=== PATIENT | female | born 1990 ===

== ENCOUNTER 2021-11-11 07:56 | Emergency (ER) | payer MEDICAID, OTHER, SELFPAY ==
--- NOTE | ~2021-11-11 | XR_ITS ---
EXAMINATION: XR CHEST CLINICAL INFORMATION: Chest pain COMPARISON: None TECHNIQUE: Frontal view of the chest was obtained. FINDINGS: No significant abnormality is noted involving the heart, lungs, mediastinum, bony thorax or soft tissues. XR/XR chest 1V IMPRESSION: Unremarkable examination.
[2021-11-11 08:11] VITALS: BP 125/67; PULSE 113; RESP 18; TEMP 36.6; O2SAT 100; BMI 25.7
--- NOTE | 2021-11-11 08:11 | ECG_ITS ---
Test Reason : CP Blood Pressure : / mmHG Vent. Rate : 097 BPM Atrial Rate : 097 BPM P-R Int : 130 ms QRS Dur : 096 ms QT Int : 348 ms P-R-T Axes : 068 077 -06 degrees QTc Int : 441 ms Normal sinus rhythm T wave abnormality, consider inferior ischemia Nonspecific ST abnormality Abnormal ECG No previous ECGs available Referred By: Generic ED Physician Electronically Signed By:HARPER EDMOND MD
[2021-11-11 08:57] LABS: MANUAL DIFF FLAG NO
[2021-11-11 08:59] LABS: Basophils Percent Auto 0.5 % (0-2); Eosinophils Absolute Auto 0.1 X10*3/uL (0.0-0.4); Eosinophils Percent Auto 2.3 % (0-4); Hematocrit 37.3 % (37.0-47.0); Hemoglobin 12.2 g/dl (12.0-16.0); Lymphocytes Absolute Auto 1.8 X10*3/uL (1.2-4.9); Lymphocytes Percent Auto 30.7 % (20-40); Mean Corpuscular HGB Conc 32.7 g/dl (31.0-35.0); Mean Corpuscular Hemoglobin 28.7 pg (27.0-33.0); Mean Corpuscular Volume 87.8 fL (80.0-98.0); Mean Platelet Volume 8.8 fL (9.4-12.3); Monocytes Absolute Auto 0.2 X10*3/uL (0.1-1.2); Monocytes Percent Auto 4.2 % (2-11); Neutrophils Absolute Auto 3.6 x10*3/uL (2.0-8.3); Neutrophils Percent Auto 62.3 % (45-73); Platelet Count 348 X10*3/uL (160-400); Red Blood Count 4.25 X10*6/uL (4.20-5.50); Red Cell Distribution Width 11.9 % (11.0-16.0); White Blood Count 5.8 X10*3/uL (4.8-10.8)
[2021-11-11 09:13] LABS: Anion Gap 15 (12-20); Blood Urea Nitrogen 11 mg/dL (9-16); Calcium 10.2 mg/dL (8.4-10.2); Carbon Dioxide 23 mmol/L (22-29); Chloride 106 mmol/L (96-108); Estimated Glomerular Filt Rate > 60; Glucose Random 84 mg/dL (60-115); Potassium 4.2 mmol/L (3.3-5.1); Sodium 140 mmol/L (135-145)
[2021-11-11 09:19] LABS: Troponin-I High Sensitivity < 3.5 ng/L (<3.5-17.0)
--- NOTE | 2021-11-11 11:51 | ED_ITS ---
HPI - Chest Pain General Chief Complaint: Chest Pain Stated Complaint: l sided chest neck jaw pain Time Seen by Provider: 11/11/21 11:30 Source: patient Mode of arrival: ambulatory Limitations: no limitations History of Present Illness MD complaint: chest pain Onset (ago): week(s) (few) Timing of current episode: episodic Prior episodes: Yes Onset: during rest Pain location: substernal, left chest and right chest Pain radiation: none Severity: moderate Quality: sharp Relieving factors: nothing Exacerbating factors: other (states it is worse at night) Associated symptoms: palpitations Treatment prior to arrival: none Related Data Previous Rx's Medication Instructions Recorded famotidine 20 mg tablet (Pepcid) 20 mg PO DAILY PRN #30 tab 11/11/21 hydroxyzine HCl 25 mg tablet 25 mg PO Q8H PRN #30 tab 11/11/21 Allergies Allergy/AdvReac Type Severity Reaction Status Date / Time No Known Allergies Allergy Verified 11/11/21 11:57 Review of Systems Review of Systems: Constitutional : No Weight loss, No Fever, No Chills ENT/Mouth : No sore throat, No Rhinorrhea Eyes: No Eye Pain, No Swelling Cardiovascular : pos Chest Pain, no SOB, no Dyspnea on Exertion, No Orthopnea, No Edema, No Palpitations Respiratory : No Cough, No Sputum Gastrointestinal : no Nausea, No Vomiting, No Diarrhea, No abdominal Pain, No Hematochezia, No Melena Genitourinary : No Dysuria, No Urinary Frequency Musculoskeletal : No joint pain, No Myalgias, No Joint Swelling Skin : No Skin Lesions, No rash Neuro : No Weakness, No Numbness, No Dizziness, No Headache Psych : No Anxiety/Panic, No Depression Heme/Lymph: No Bruising, No Lymphadenopathy Endocrine : No Polyuria, No Polydipsia All other systems reviewed and are negative PMFSH Past Medical History Attestation statement: The following information was validated with the patient. Medical History PCOS (polycystic ovarian syndrome) Social History Social History (Updated 11/11/21 @ 12:07 by April Kelly DO) Patient Tobacco Use Status: Never used Tobacco Advance Directives: No Advance Directives Information Provided: No Patient : No Physical Exam Vital Signs: Vital Signs: Last Vital Signs Temp 97.7 F 11/11/21 12:19 Pulse 100 11/11/21 12:19 Resp 18 11/11/21 12:19 BP 112/71 11/11/21 12:19 Pulse Ox 99 11/11/21 12:19 BMI result Body Mass Index 25.7 Appearance: Alert. Oriented X3. No acute distress. Anxious Eyes: Pupils equal, round and reactive to light. ENT: Pharynx normal. Neck: Normal inspection. Neck supple. CVS: Normal heart rate and rhythm. Pulses normal. Respiratory: No respiratory distress. Breath sounds normal. Abdomen: Soft and non-tender. Skin: Skin warm and dry. Normal skin color. Normal skin turgor. Extremities: No lower extremity edema. No calf ttp Neuro: Oriented X 3. No motor deficit. No sensory deficit. Course Course Course Narrative: nonischemic EKG, trop negative x 2 with symptoms x weeks, ddimer negative MDM - Chest Pain MDM Narrative Medical decision making narrative: 31 yo female no PMH here c/o chest pain for a few weeks no associated symptoms worse at night not on OCPs has no known risk factors at this time will obtain EKG, CXR, ddimer given HR 113, troponin x 2. Distal pulses intact doubt dissection. Dispo per results and findings. Lab Data Result diagrams: 11/11/21 08:48 11/11/21 08:48 Labs: Lab Results 11/11/21 11/11/21 11/11/21 Range/Units 08:48 08:48 08:48 WBC 5.8 (4.8-10.8) X10*3/uL RBC 4.25 (4.20-5.50) X10*6/uL Hgb 12.2 (12.0-16.0) g/dl Hct 37.3 (37.0-47.0) % MCV 87.8 (80.0-98.0) fL MCH 28.7 (27.0-33.0) pg MCHC 32.7 (31.0-35.0) g/dl RDW 11.9 (11.0-16.0) % Plt Count 348 (160-400) X10*3/uL MPV 8.8 L (9.4-12.3) fL Immature Gran % (Auto) 0.0 (0.0-0.4) % Neut % (Auto) 62.3 (45-73) % Lymph % (Auto) 30.7 (20-40) % [place] % (Auto) 4.2 (2-11) % Eos % (Auto) 2.3 (0-4) % Baso % (Auto) 0.5 (0-2) % Lymph # (Auto) 1.8 (1.2-4.9) X10*3/uL [place] # (Auto) 0.2 (0.1-1.2) X10*3/uL Eos # (Auto) 0.1 (0.0-0.4) X10*3/uL Baso # (Auto) 0.0 (0.0-0.2) X10*3/uL Abs Immat Gran (auto) 0.00 (0.00-0.03) X10*3/uL Absolute Neuts (auto) 3.6 (2.0-8.3) x10*3/uL Absolute Nucleated RBC 0.000 (0.0-0.012) X10*3/uL Nucleated RBC % (auto) 0.0 (0.0-0.2) /100WBC D-Dimer High Sensitivty NG/ML Sodium 140 (135-145) mmol/L Potassium 4.2 (3.3-5.1) mmol/L Chloride 106 (96-108) mmol/L Carbon Dioxide 23 (22-29) mmol/L Anion Gap 15 (12-20) BUN 11 (9-16) mg/dL Creatinine 0.73 (0.5-1.4) mg/dL Estim Creat Clear Calc 92.0 Estimated GFR > 60 Random Glucose 84 (60-115) mg/dL Calcium 10.2 (8.4-10.2) mg/dL Magnesium 1.9 (1.6-2.6) mg/dL Troponin I High Sens < 3.5 (<3.5-17.0) ng/L 11/11/21 11/11/21 Range/Units 12:08 12:08 WBC (4.8-10.8) X10*3/uL RBC (4.20-5.50) X10*6/uL Hgb (12.0-16.0) g/dl Hct (37.0-47.0) % MCV (80.0-98.0) fL MCH (27.0-33.0) pg MCHC (31.0-35.0) g/dl RDW (11.0-16.0) % Plt Count (160-400) X10*3/uL MPV (9.4-12.3) fL Immature Gran % (Auto) (0.0-0.4) % Neut % (Auto) (45-73) % Lymph % (Auto) (20-40) % [place] % (Auto) (2-11) % Eos % (Auto) (0-4) % Baso % (Auto) (0-2) % Lymph # (Auto) (1.2-4.9) X10*3/uL [place] # (Auto) (0.1-1.2) X10*3/uL Eos # (Auto) (0.0-0.4) X10*3/uL Baso # (Auto) (0.0-0.2) X10*3/uL Abs Immat Gran (auto) (0.00-0.03) X10*3/uL Absolute Neuts (auto) (2.0-8.3) x10*3/uL Absolute Nucleated RBC (0.0-0.012) X10*3/uL Nucleated RBC % (auto) (0.0-0.2) /100WBC D-Dimer High Sensitivty < 150 NG/ML Sodium (135-145) mmol/L Potassium (3.3-5.1) mmol/L Chloride (96-108) mmol/L Carbon Dioxide (22-29) mmol/L Anion Gap (12-20) BUN (9-16) mg/dL Creatinine (0.5-1.4) mg/dL Estim Creat Clear Calc Estimated GFR Random Glucose (60-115) mg/dL Calcium (8.4-10.2) mg/dL Magnesium (1.6-2.6) mg/dL Troponin I High Sens < 3.5 (<3.5-17.0) ng/L ECG Data ECG #1: Attestation: I personally reviewed and interpreted this ECG as follows: ECG interpretation date: 11/11/21 ECG interpretation time: 12:00 Interpretation: Rate: 97 Rhythm: NSR [place]: normal Normal P waves. Normal LIDA. Normal QRS complex. ST T wave : nonspecific inf leads, no MARCEL qTC: normal prior studies: no acute ischemia The study has been interpreted contemporaneously by me. . Discharge Plan Discharge Clinical Impression: Atypical chest pain Patient Disposition: Home, Self-Care Instructions: Chest Pain (ED) Additional Instructions: return to ED for any worsening symptoms or concerns blood work for heart negative x 2, ddimer negative chest xray negative Prescriptions: New famotidine [Pepcid] 20 mg tablet 20 mg PO DAILY PRN (Reason: abdominal discomfort) Qty: 30 0RF hydroxyzine HCl 25 mg tablet 25 mg PO Q8H PRN (Reason: anxiety) Qty: 30 0RF Referrals: Physician,None [Primary Care Provider] - 2 days Stand Alone Forms: Work/School Release
[2021-11-11 12:19] VITALS: BP 112/71; PULSE 100; RESP 18; TEMP 36.5; O2SAT 99
[2021-11-11 12:26] LABS: D Dimer High Sensitivity < 150 NG/ML
[2021-11-11 12:28] LABS: Magnesium 1.9 mg/dL (1.6-2.6)
[2021-11-11 12:40] LABS: Troponin-I High Sensitivity < 3.5 ng/L (<3.5-17.0)
== END 2021-11-11 13:02 | disposition home or self-care (01) ==
PROVIDERS: Emergency Provider Emergency Medicine
DX: R07.89 Other chest pain (principal)
CPT/HCPCS: 36415; 71045; 80048; 83735; 84484; 85025; 85379; 93005; 99283; 99284

== ENCOUNTER 2021-12-02 07:57 | Emergency (ER) | payer MEDICAID, OTHER, SELFPAY ==
--- NOTE | ~2021-12-02 | XR_ITS ---
EXAMINATION: XR CHEST CLINICAL INFORMATION: Chest tightness. Question pneumonia. COMPARISON: Previous chest x-ray October 2021 TECHNIQUE: Frontal view of the chest was obtained. FINDINGS: No significant abnormality is noted involving the heart, lungs, mediastinum, bony thorax or soft tissues. XR/XR chest 1V IMPRESSION: Unremarkable examination.
[2021-12-02 08:12] VITALS: BP 117/70; PULSE 84; RESP 19; TEMP 36.6; O2SAT 99; BMI 26.4
--- NOTE | 2021-12-02 08:18 | ECG_ITS ---
Test Reason : chest tightness Blood Pressure : / mmHG Vent. Rate : 070 BPM Atrial Rate : 070 BPM P-R Int : 140 ms QRS Dur : 088 ms QT Int : 412 ms P-R-T Axes : 049 074 032 degrees QTc Int : 444 ms Normal sinus rhythm with sinus arrhythmia Normal ECG When compared with ECG of 11-NOV-2021 08:14, T wave inversion no longer evident in Inferior leads Nonspecific T wave abnormality no longer evident in Lateral leads Referred By: Generic ED Physician Electronically Signed By:HARPER EDMOND MD
[2021-12-02 08:49] LABS: MANUAL DIFF FLAG NO
[2021-12-02 08:54] LABS: Basophils Percent Auto 0.5 % (0-2); Eosinophils Absolute Auto 0.3 X10*3/uL (0.0-0.4); Eosinophils Percent Auto 5.6 % (0-4); Hematocrit 35.8 % (37.0-47.0); Hemoglobin 11.8 g/dl (12.0-16.0); Imm Gran Abs Auto 0.01 X10*3/uL (0.00-0.03); Imm Gran Pct Auto 0.2 % (0.0-0.4); Lymphocytes Absolute Auto 2.4 X10*3/uL (1.2-4.9); Mean Platelet Volume 8.5 fL (9.4-12.3); Monocytes Absolute Auto 0.3 X10*3/uL (0.1-1.2); Monocytes Percent Auto 6.1 % (2-11); Neutrophils Absolute Auto 2.5 x10*3/uL (2.0-8.3); Neutrophils Percent Auto 44.6 % (45-73); Platelet Count 337 X10*3/uL (160-400); Red Blood Count 4.07 X10*6/uL (4.20-5.50); Red Cell Distribution Width 12.5 % (11.0-16.0); White Blood Count 5.6 X10*3/uL (4.8-10.8)
[2021-12-02 08:58] LABS: Appearance Urine CLEAR; Glucose Urine UA NEG (NEG); Leukocyte Esterase Urine NEG (NEG); Nitrite Urine NEG (NEG); Specific Gravity - Urine <= 1.005 (1.005-1.025); UPreg QC Valid YES; Urine Blood NEG (NEG); Urine Ketones NEG (NEG); Urine Pregnancy NEGATIVE (NEGATIVE); Urine Protein NEG (NEG-TRACE)
[2021-12-02 08:59] LABS: Color Urine COLORLESS
[2021-12-02 09:07] LABS: Anion Gap 12 (12-20); Blood Urea Nitrogen 9 mg/dL (9-16); Calcium 9.6 mg/dL (8.4-10.2); Carbon Dioxide 26 mmol/L (22-29); Chloride 105 mmol/L (96-108); Creatinine Clr Calc Pharmacy 90.4; Estimated Glomerular Filt Rate > 60; Glucose Random 82 mg/dL (60-115); Potassium 4.6 mmol/L (3.3-5.1); Sodium 138 mmol/L (135-145)
[2021-12-02 09:12] LABS: Troponin-I High Sensitivity < 3.5 ng/L (<3.5-17.0)
[2021-12-02 11:25] VITALS: BP 101/61; PULSE 75; RESP 15; TEMP 36.6; O2SAT 100
--- NOTE | 2021-12-02 11:28 | PC.NURSE ---
pt a&ox3, vss, cardiac rehab nurse applied, NSR, chest pain/tightness for ~3 days w left sided arm/neck/jaw pain. pt denies SOB, speaking in full sentences. pending ED provider, will continue to monitor.
[2021-12-02 11:50] LABS: Prothrombin Time 10.8 SEC (9.9-13.0)
[2021-12-02 11:53] LABS: D Dimer High Sensitivity < 150 NG/ML
[2021-12-02 11:59] LABS: COVID-19 Test Negative (Negative); IDNOW Serial# 55D5AD1C
--- NOTE | 2021-12-02 12:16 | ED_ITS ---
HPI - General Adult General Chief complaint: General Medical Stated complaint: chest tightness/shoulder pain Time Seen by Provider: 12/02/21 11:05 Source: patient Mode of arrival: ambulatory Limitations: no limitations History of Present Illness HPI narrative: 31-year-old healthy female patient presents to ED for chest tightness without any shortness of breath. patient states chest tightness then radiating down both arms and cause tingling. Patient states this has been occurring for months. Patient states she wants to be re-evaluated. Patient was seen here couple weeks ago and was placed on anxiety medication. Patient does not have any primary care provider and is calling her insurance to schedule an appointment with a new primary care provider. Patient denies any palpitation of chest. patient denies any suicidal or homicidal ideation. Patient denies any auditory /visual hallucination Related Data Previous Rx's Medication Instructions Recorded famotidine 20 mg tablet (Pepcid) 20 mg PO DAILY PRN #30 tab 11/11/21 hydroxyzine HCl 25 mg tablet 25 mg PO Q8H PRN #30 tab 11/11/21 Allergies Allergy/AdvReac Type Severity Reaction Status Date / Time No Known Allergies Allergy Verified 11/11/21 11:57 Review of Systems Review of Systems: anxiety chest tightness Yes all other systems are rev iewed and are negative [facility] Past Medical History Medical History (Updated 12/02/21 @ 13:31 by CLAUDE Mckinley) Anxiety PCOS (polycystic ovarian syndrome) Social History Social History (Updated 11/11/21 @ 12:07 by April Kelly DO) Alcohol intake: never Patient Tobacco Use Status: Never used Tobacco Use of substances other than those prescribed or required for medical reasons: No Advance Directives: No Advance Directives Information Provided: No Patient : No Physical Exam ED Vital Signs: Vital Signs - 24 hr 12/02/21 08:12 12/02/21 11:25 Temperature 98 F 97.8 F Pulse Rate 84 75 Respiratory Rate 19 15 Blood Pressure 117/70 101/61 Pulse Oximetry 99 100 BMI result Body Mass Index 26.4 Const General: cooperative, healthy appearing, comfortable, no acute distress, well developed, alert, awake and Physically active Orientation/consciousness: oriented to time and patient oriented x3 HENMT Head: Yes normal to inspection, Yes No palpable skull fracture present, Yes normocephalic, Yes atraumatic and No abrasion Eyes General: appearance normal, both eyes and all related structures Neck Neck: Yes normal visual inspection, Yes full ROM, Yes no lymphadenopathy, Yes no meningeal signs, Yes trachea midline, Yes supple, No anterior neck swelling and No tender Chest Chest palpation & inspection: normal inspection of the chest and normal palpation of entire chest wall Resp Effort & Inspection: normal respiratory effort and able to speak in complete sentences Auscultation: clear to auscultation bilaterally Cardio Jugular venous distension: no JVD Heart sounds: S1 normal heart sound present and S2 normal heart sound present GI Inspection: Yes normal to inspection and No abdominal wall ecchymosis Palpation (GI): Soft to palpation, not firm, nontender, no guarding and not rigid General: No CVA tenderness and Yes no CVA tenderness Back/Spine/Pelvis Back: no CVA tenderness, No CVA tenderness and No back tenderness Skin General skin exam: no rashes or lesions noted and elasticity normal Neuro General: oriented to time, patient oriented x3 and no meningeal signs Cranial nerves: Yes CN's II-XII intact bilaterally Extrem Other: lower extremities negative for swelling, pitting edema, calf tenderness, or redness General: Yes normal to inspection and Yes full ROM Psych Other: anxiety Appearance: grossly normal, well kempt and not disheveled Course Course Course Narrative: will do medical evaluation most likely symptoms due to anxiety. Reevaluation(s) Reevaluation #1: EKG negative STEMI. Troponin and D-dimer negative. Chest x-ray normal. COVID swab negative. Patient is safe for discharge. Patient informed to follow-up with primary care provider. Symptoms most likely due to anxiety. heart score 0. Perc score 0 Time: 13:27 Medical Decision Making [facility] Narrative Medical decision making narrative: atypical chest pain. Anxiety Lab Data Result diagrams: 12/02/21 08:34 12/02/21 08:35 Labs: Lab Results 12/02/21 12/02/21 12/02/21 Range/Units 08:31 08:31 08:34 WBC 5.6 (4.8-10.8) X10*3/uL RBC 4.07 L (4.20-5.50) X10*6/uL Hgb 11.8 L (12.0-16.0) g/dl Hct 35.8 L (37.0-47.0) % MCV 88.0 (80.0-98.0) fL MCH 29.0 (27.0-33.0) pg MCHC 33.0 (31.0-35.0) g/dl RDW 12.5 (11.0-16.0) % Plt Count 337 (160-400) X10*3/uL MPV 8.5 L (9.4-12.3) fL Immature Gran % (Auto) 0.2 (0.0-0.4) % Neut % (Auto) 44.6 L (45-73) % Lymph % (Auto) 43.0 H (20-40) % [place] % (Auto) 6.1 (2-11) % Eos % (Auto) 5.6 H (0-4) % Baso % (Auto) 0.5 (0-2) % Lymph # (Auto) 2.4 (1.2-4.9) X10*3/uL [place] # (Auto) 0.3 (0.1-1.2) X10*3/uL Eos # (Auto) 0.3 (0.0-0.4) X10*3/uL Baso # (Auto) 0.0 (0.0-0.2) X10*3/uL Abs Immat Gran (auto) 0.01 (0.00-0.03) X10*3/uL Absolute Neuts (auto) 2.5 (2.0-8.3) x10*3/uL Absolute Nucleated RBC 0.000 (0.0-0.012) X10*3/uL Nucleated RBC % (auto) 0.0 (0.0-0.2) /100WBC PT (9.9-13.0) SEC INR (0.9-1.1) APTT (24.1-38.0) SEC D-Dimer High Sensitivty NG/ML Sodium (135-145) mmol/L Potassium (3.3-5.1) mmol/L Chloride (96-108) mmol/L Carbon Dioxide (22-29) mmol/L Anion Gap (12-20) BUN (9-16) mg/dL Creatinine (0.5-1.4) mg/dL Estim Creat Clear Calc Estimated GFR Random Glucose (60-115) mg/dL Calcium (8.4-10.2) mg/dL Troponin I High Sens (<3.5-17.0) ng/L Urine Color COLORLESS Urine Appearance CLEAR Urine pH 6.0 (5.0-8.0) Ur Specific [place] <= 1.005 (1.005-1.025) Urine Protein NEG (NEG-TRACE) MG/DL Urine Glucose (UA) NEG (NEG) MG/DL Urine Ketones NEG (NEG) MG/DL Urine Blood NEG (NEG) Urine Nitrite NEG (NEG) Ur Leukocyte Esterase NEG (NEG) Urine Test NEGATIVE (NEGATIVE) COVID-19 (JAKE) (Negative) COVID-19 Clin Com 12/02/21 12/02/21 12/02/21 Range/Units 08:34 08:35 11:37 WBC (4.8-10.8) X10*3/uL RBC (4.20-5.50) X10*6/uL Hgb (12.0-16.0) g/dl Hct (37.0-47.0) % MCV (80.0-98.0) fL MCH (27.0-33.0) pg MCHC (31.0-35.0) g/dl RDW (11.0-16.0) % Plt Count (160-400) X10*3/uL MPV (9.4-12.3) fL Immature Gran % (Auto) (0.0-0.4) % Neut % (Auto) (45-73) % Lymph % (Auto) (20-40) % [place] % (Auto) (2-11) % Eos % (Auto) (0-4) % Baso % (Auto) (0-2) % Lymph # (Auto) (1.2-4.9) X10*3/uL [place] # (Auto) (0.1-1.2) X10*3/uL Eos # (Auto) (0.0-0.4) X10*3/uL Baso # (Auto) (0.0-0.2) X10*3/uL Abs Immat Gran (auto) (0.00-0.03) X10*3/uL Absolute Neuts (auto) (2.0-8.3) x10*3/uL Absolute Nucleated RBC (0.0-0.012) X10*3/uL Nucleated RBC % (auto) (0.0-0.2) /100WBC PT (9.9-13.0) SEC INR (0.9-1.1) APTT (24.1-38.0) SEC D-Dimer High Sensitivty NG/ML Sodium 138 (135-145) mmol/L Potassium 4.6 (3.3-5.1) mmol/L Chloride 105 (96-108) mmol/L Carbon Dioxide 26 (22-29) mmol/L Anion Gap 12 (12-20) BUN 9 (9-16) mg/dL Creatinine 0.75 (0.5-1.4) mg/dL Estim Creat Clear Calc 90.4 Estimated GFR > 60 Random Glucose 82 (60-115) mg/dL Calcium 9.6 (8.4-10.2) mg/dL Troponin I High Sens < 3.5 (<3.5-17.0) ng/L Urine Color Urine Appearance Urine pH (5.0-8.0) Ur Specific [place] (1.005-1.025) Urine Protein (NEG-TRACE) MG/DL Urine Glucose (UA) (NEG) MG/DL Urine Ketones (NEG) MG/DL Urine Blood (NEG) Urine Nitrite (NEG) Ur Leukocyte Esterase (NEG) Urine Test (NEGATIVE) COVID-19 (JAKE) Negative (Negative) COVID-19 Clin Com See Note 12/02/21 Range/Units 11:37 WBC (4.8-10.8) X10*3/uL RBC (4.20-5.50) X10*6/uL Hgb (12.0-16.0) g/dl Hct (37.0-47.0) % MCV (80.0-98.0) fL MCH (27.0-33.0) pg MCHC (31.0-35.0) g/dl RDW (11.0-16.0) % Plt Count (160-400) X10*3/uL MPV (9.4-12.3) fL Immature Gran % (Auto) (0.0-0.4) % Neut % (Auto) (45-73) % Lymph % (Auto) (20-40) % [place] % (Auto) (2-11) % Eos % (Auto) (0-4) % Baso % (Auto) (0-2) % Lymph # (Auto) (1.2-4.9) X10*3/uL [place] # (Auto) (0.1-1.2) X10*3/uL Eos # (Auto) (0.0-0.4) X10*3/uL Baso # (Auto) (0.0-0.2) X10*3/uL Abs Immat Gran (auto) (0.00-0.03) X10*3/uL Absolute Neuts (auto) (2.0-8.3) x10*3/uL Absolute Nucleated RBC (0.0-0.012) X10*3/uL Nucleated RBC % (auto) (0.0-0.2) /100WBC PT 10.8 (9.9-13.0) SEC INR 1.0 (0.9-1.1) APTT 37.0 (24.1-38.0) SEC D-Dimer High Sensitivty < 150 NG/ML Sodium (135-145) mmol/L Potassium (3.3-5.1) mmol/L Chloride (96-108) mmol/L Carbon Dioxide (22-29) mmol/L Anion Gap (12-20) BUN (9-16) mg/dL Creatinine (0.5-1.4) mg/dL Estim Creat Clear Calc Estimated GFR Random Glucose (60-115) mg/dL Calcium (8.4-10.2) mg/dL Troponin I High Sens (<3.5-17.0) ng/L Urine Color Urine Appearance Urine pH (5.0-8.0) Ur Specific [place] (1.005-1.025) Urine Protein (NEG-TRACE) MG/DL Urine Glucose (UA) (NEG) MG/DL Urine Ketones (NEG) MG/DL Urine Blood (NEG) Urine Nitrite (NEG) Ur Leukocyte Esterase (NEG) Urine Test (NEGATIVE) COVID-19 (JAKE) (Negative) COVID-19 Clin Com ECG Data Interpretation: normal sinus rhythm. Ventricular rate 70. Pr interval 140. QRS 88. QTC 444. Negative STEMI Discharge Plan Discharge Clinical Impression: Chest pain, atypical Patient Disposition: Home, Self-Care Instructions: Chest Pain (DC) Additional Instructions: your blood work and EKG came back negative for heart attack or risk of blood clot. The labs came back normal. Chest x-ray and COVID swab came back n egative. You can call 1 of our [facility] primary care providers on the list given to you by the nurse. Return to the ED for any chest pain, shortness of breath, swelling of lower extremities, calf pain, coughing up blood, fever, chills, weakness, dizziness, or any other concerning symptoms. Prescriptions: No Action famotidine [Pepcid] 20 mg tablet 20 mg PO DAILY PRN (Reason: abdominal discomfort) Qty: 30 0RF hydroxyzine HCl 25 mg tablet 25 mg PO Q8H PRN (Reason: anxiety) Qty: 30 0RF Stand Alone Forms: Work/School Release Interventions: ED Discharge Assessment Last Done: 12/02/21 13:36 Discharge Date/Time: 12/02/21 13:48 Print Language: [place]
== END 2021-12-02 13:48 | disposition home or self-care (01) ==
PROVIDERS: Physician Assistant; Emergency Provider Emergency Medicine
DX: R07.89 Other chest pain (principal); Z20.822 Contact with and (suspected) exposure to COVID-19; F41.9 Anxiety disorder, unspecified
CPT/HCPCS: 36415; 71045; 80048; 81003; 81025; 84484; 85025; 85379; 85610; 85730; 87635; 93005; 99283; 99284

== ENCOUNTER → 2022-02-04 09:08 | Outpatient (REF) | payer MEDICAID, OTHER, SELFPAY ==
--- NOTE | 2022-02-04 09:13 | CA_ITS ---
Transthoracic Echocardiogram Patient (Last, First, Middle): Sandra Duff, Gender: Female Date of : 1990 Age: 31 Procedure Date: 02/04/2022 Procedure Type: Transthoracic Echocardiogram Location: OP Height: 154.94 cm Weight: 58.97 kg BSA: 1.57 m2 Heart Rate: bpm BP: 120 / 75 mmHg [place] Lifeguard: TO Referring MD: Argenis Lock Extruder Operator Vertical: Honorio Seymour MD Symptoms: R07.9 chest pain Study Quality: Fair ECG Rhythm: Sinus Conclusions: - Normal study Findings Left Ventricle Normal left ventricular size, thickness, and systolic function. The visually estimated ejection fraction is between 60-65%. Spectral Doppler is indicative of a normal filling pattern. Right Ventricle Normal right ventricular cavity size and systolic function. Atria Both atria are normal in size. There is no evidence of interatrial shunt. Aortic Valve Normal aortic valve structure and function. There is no aortic valve stenosis. There is no aortic valve regurgitation. Mitral Valve Normal mitral valve structure and function. There is trace mitral valve regurgitation. There is no mitral valve stenosis. Pulmonic Valve The pulmonic valve is likely normal. Tricuspid Valve Normal tricuspid valve structure. There is trace tricuspid valve regurgitation. The right ventricular systolic pressure is normal. The right ventricular systolic pressure is 16 mmHg. Normal right atrial pressure. There is no evidence of pulmonary hypertension. Great Vessels All visible segments of the aorta are normal in size. The pulmonary artery was not well visualized. Venous The inferior vena cava is normal in size and collapses greater than 50% with inspiration. Pericardium/Pleural There is no evidence of pericardial effusion. Prior Study Comparison No prior study available for comparison. Measurements 2D Linear Measurements IVSd: 0.67 0.6-0.9/0.6-1.0 cm LVIDd: 4.07 3.9-5.3/4.2-5.9 cm LVIDd Index: 2.59 2.4-3.2/2.2-3.1 cm/m2 LVIDs: 2.61 2.0-3.6 cm LVPWd: 0.66 0.7-1.1 cm LA Diam: 3.00 2.7-3.8/3.0-4.0 cm LAIDs Index: 1.91 1.5-2.3 cm/m2 LV Mass: 93.74 67-162/88-224 g LV Mass Index: 59.71 43-95/49-115 g/m2 LVOT Diam: 2.00 3.0+(-)1.3 cm 2D Systolic Function EF 4C: 63.60 >55% EF 2C: 61.70 >55% EF BiP: 62.90 >55% Mitral Valve MV Pk E: 0.85 MV PK A: 0.62 MV Decel Time: 162.00 E/A: 1.40 E'Lateral: 14.80 E'Medial: 8.38 E/E' Med: 10.10 E/E' Lat: 5.70 PHT: 47.00 MVA PHT: 4.68 Decel [place]: 5.22 Aortic Valve AoV Pk [place]: 1.06 AoV Mn [place]: 0.71 AoV VTI: 0.23 AoV Pk Grad: 4.00 Aov Mn Grad: 2.00 CELINA Cont.VTI: 2.72 LVOT LVOT Pk [place]: 1.08 LVOT Mn [place]: 0.64 LVOT VTI: 0.20 LVOT Pk Grad: 5.00 LVOT Mn Grad: 2.00 LVOT Diam: 2.00 LVOT Area: 3.14 Diastolic Function MV Pk E: 0.85 MV Pk A: 0.62 E/A: 1.40 E'Medial: 8.38 E/E' Med: 10.10 E' Laterial: 14.80 E/E' Lat: 5.70 Tricuspid Valve TR Pk [place]: 1.79 TR Pk Grad: 13.00 RA Press: 3.00 RVSP: 16.00 Great Vessels Aorta Ao Asc: 2.60 2.1-3.4 cm Updated in Other Vendor System with Status of Final Honorio Seymour MD electronically signed on 02/04/2022 5:58:25 PM with status of Final
== END ==
LOC: HO.CARD 09:08
PROVIDERS: PCP Nurse Practitioner Family; Visit Provider Nurse Practitioner Family
DX: R07.9 Chest pain, unspecified (principal)
CPT/HCPCS: 93306

== ENCOUNTER → 2022-10-13 08:31 | Outpatient (BNVA) | payer OTHER, SELFPAY | PROVIDERS: PCP Nurse Practitioner Family; Visit Provider Advanced Practice Midwife | DX: O21.9 Vomiting of pregnancy, unspecified (principal); Z87.42 Personal history of other diseases of the female genital tract | CPT/HCPCS: 81025; 99202 ==

== ENCOUNTER 2022-10-13 09:18 | Outpatient (REF) | payer OTHER, SELFPAY ==
--- NOTE | ~2022-10-13 | US_ITS ---
EXAMINATION: US OBSTETRICAL ULTRASOUND CLINICAL INFORMATION: Positive test, missed period. COMPARISON: None. LMP: Unknown. Gestational age by maternal dates is unknown. Estimated date of delivery by maternal dates is unknown. TECHNIQUE: Ultrasound of the maternal pelvis is performed using transabdominal and transvaginal transducers. Transvaginal imaging is performed due to inadequate visualization transabdominally. M-mode Doppler is also performed. FINDINGS: There is a single intrauterine gestational sac with visible yolk sac, embryo/fetus, and cardiac activity. There is no significant subchorionic hemorrhage or hematoma. HR: 181 beats per minute. CRL (crown rump length): 2.75 cm (9 weeks 4 days +/- 4 days). ZACHARY (estimated date of delivery): 05/14/2023 +/- 4 days. MATERNAL ADNEXA: The right maternal ovary measures 3.7 x 1.6 x 2.2 cm. No adnexal mass. The left maternal ovary measures 2.9 x 1.1 x 2.6 cm. No adnexal mass. There is no significant maternal adnexal mass. No maternal pelvic ascites. US/US OB <= 14 weeks fetus IMPRESSION: 1. Single living intrauterine gestation with ultrasound gestational age of 9 weeks 4 days +/- 4 days. 2. Estimated date of delivery is 05/14/2023 +/- 4 days. 3. No maternal adnexal mass or pelvic ascites.
== END 2022-10-13 09:19 | disposition home or self-care (01) ==
LOC: HO.US 09:18
PROVIDERS: Visit Provider Advanced Practice Midwife
DX: Z34.91 Encounter for supervision of normal pregnancy, unspecified, first trimester (principal); Z3A.01 Less than 8 weeks gestation of pregnancy
CPT/HCPCS: 36415; 76801; 84702

== ENCOUNTER 2024-02-08 09:39 | Outpatient (AMB) | payer OTHER, SELFPAY ==
--- OUTSIDE RECORDS SUMMARY | 2024-02-08 09:41 | XMS_ITS | Continuity of Care Document ---
Author Organization [facility] Address [address] [place] [id number]- Care Team Providers Care Administrative Project Coordinator Name Role Phone Not on Staff, PCP Primary Care Physician Unavail able Encounter [facility] [place] Date(s): 06/05/23 - 07/16/[address] [address]- Attending Physician: Brenda Edwards MD Admitting Physician: Brenda Edwards MD Referring Physician: Alma Delia Wong CNM Allergies, Adverse Reactions, Alerts No Known Allergies Medications Colace sodium 100 mg oral capsule 100 mg, 1, capsule, By Mouth, 2 times a day, PRN, # 60 capsule, Refills 1, Tot. Refills 1, Maintenance, Constipation, 07/10/23 13:15:00 EDT, Route to Pharmacy Electronically, [facility]/pharmacy #[id number], Partial fill upon patient request if the prescription is... Start Date: 07/10/23 Status: Ordered PEG-3350 with Electrolytes (Eqv-GoLYTELY) oral powder for reconstitution 240 mL, By Mouth, Every 10 minutes, # 4,000 mL, 0 Refills, Maintenance, 06/23/23 15:52:00 EDT, [facility]/pharmacy #[id number], OK to sub for any available gallon prep, 240 mL By Mouth Every 10 minutes, 154, cm, 06/12/23 11:28:00 EDT, Height, 63, kg, 05/29/23 16:3... Start Date: 06/23/23 Status: Ordered Preparation H 14%-74.9%-0.25% rectal ointment 1 application, Rectally, 2 times a day, PRN as needed for pain, # 57 Gm, 1 Refills, Maintenance, 06/09/23 11:52:00 EDT, Ointment, [facility]/pharmacy #[id number], Partial fill upon patient request if the prescription is for a schedule II opioid drug., 1 applicatio... Start Date: 06/09/23 Status: Ordered Senna 8.6 mg oral tablet 1 or 2 tablets, By Mouth, Daily at bedtime, PRN, # 60 tablet, Refills 0, Tot. Refills 0, Maintenance, Constipation, 07/10/23 13:15:00 EDT, Route to Pharmacy Electronically, [facility]/pharmacy #[id number] Tablet,Partial fill upon patient request if the prescripti... Start Date: 07/10/23 Status: Ordered Problem List Condition Confirmation Course Effective Dates Status Health St atus Informant Mild anemia Confirmed Active Anxiety Confirmed Active Chest pain Confirmed Active GERD (gastroesophageal reflux disease) Confirmed Active Low back pain during in third trimester Confirmed Active Migraines Confirmed Active PCOS (polycystic ovarian syndrome) Confirmed Active Rubella non-immune Confirmed Active Social History Social History Type Response Smoking Status Never (less than 100 in lifetime); Exposure to Secondhand Smoke: No entered on: 10/21/22 Sex Patient Care team information Care Team Personnel Name: Not on Staff, PCP Position: S Physician (General Medicine) Member Role: PCP Care Team Related Persons Name: AMANDEEP MONTOYA Address: home [address] [place] [address] Name: SINAN TOLBERT Address: Address: [address]
--- OUTSIDE RECORDS SUMMARY | 2024-02-08 09:41 | XMS_ITS | Continuity of Care Document ---
Author Organization [facility] Address [address] [place] [id number]- Care Team Providers Care Food Management Aide Name Role Phone Not on Staff, PCP Primary Care Physician Unavail able Encounter [facility] [place] Date(s): 10/29/22 - 11/28/[address] [address] Allergies, Adverse Reactions, Alerts No Known Allergies Medications PNV 1 tablet, By Mouth, Daily, 0 Refills, Maintenance, 10/21/22 10:15:00 EST, Partial fill upon patientrequest if the prescription is for a schedule II opioid drug. Start Date: 10/21/22 Status: Ordered Unisom 25 mg oral tablet 1 tablet = 25 mg, By Mouth, Daily, 0 Refills, Maintenance, 10/21/22 10:16:00 EST, Partial fill uponpatient request if the prescription is for a schedule II opioid drug. Start Date: 10/21/22 Status: Ordered Vitamin B6 Daily, 0 Refills, Maintenance, 10/21/22 10:15:00 EST, Partial fill upon patient request if the prescription is for a schedule II opioid drug. Start Date: 10/21/22 Status: Ordered Problem List Condition Confirmation Course Effective Dates Status Health St atus Informant Anxiety Confirmed Active Migraines Confirmed Active Encounter for supervision of normal first Confirmed Active PCOS (polycystic ovarian syndrome) Confirmed Active Rubella non-immune Confirmed Active UTI in Confirmed Active Social History Social History Type Response Smoking Status Never (less than 100 in lifetime); Exposure to Secondhand Smoke: No entered on: 10/21/22 Sex Patient Care team information Care Team Personnel Name: Not on Staff, PCP Position: S Physician (General Medicine) Member Role: PCP Care Team Related Persons Name: AMANDEEP MONTOYA
--- OUTSIDE RECORDS SUMMARY | 2024-02-08 09:41 | XMS_ITS | Continuity of Care Document ---
Author Organization [facility] Address [address] [place] [address]- Care Team Providers Care Flue Gas Analyst Name Role Phone Not on Staff, PCP Primary Care Physician Unavail able Encounter [facility] Date(s): 12/24/21 - 01/23/22 [facility] [address] [place] [address]- Attending Physician: Roldan Mc Admitting Physician: Roldan Mc Referring Physician: Roldan Mc
--- OUTSIDE RECORDS SUMMARY | 2024-02-08 09:41 | XMS_ITS | Continuity of Care Document ---
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 Patient should only receive a total of 650mg of Acetaminophen every 4 hours., # 90 tablet, Refills 0, Tot. Refills 0... Start Date: 05/11/23 Status: Ordered Acetaminophen Tablet 650 mg, Tablet, By Mouth, Every 4 hours, PRN for Pain , Mild, (1-3), may give 325mg per patient preference and re-dose with 325mg within 4 hours, if needed. Patient should only receive a total of 650mg of Acetaminophen every 4 hours., Routine, 05/08... Start Date: 05/08/23 Stop Date: 05/12/23 Status: Discontinued docusate sodium 100 mg oral tablet = 100 mg, By Mouth, 2 times a day, PRN Constipation, # 60 tablet, 0 Refills, Maintenance, 05/11/23 15:57:00 EDT, Tablet, [id number], Partial fill upon patient request if the prescription is for a schedule II opioid drug., 154, cm, 05/11/23 8:0... Start Date: 05/11/23 Status: Ordered ferrous fumarate 300 mg oral tablet 1 tablet = 300 mg, By Mouth, Daily, 0 Refills, Maintenance, 03/30/23 13:44:00 EDT, Partial fill upon patient request if the prescription is for a schedule II opioid drug. Start Date: 03/30/23 Status: Ordered ibuprofen 600 mg oral tablet 600 mg, 1, tablet, By Mouth, Every 8 hours, # 30 tablet, Refills 0, Tot. Refills 0, Maintenance, 05/11/23 15:58:00 EDT, Route to Pharmacy Electronically, [id number], Partial fill upon patientrequest if the prescription is for a schedule II op... Start Date: 05/11/23 Status: Ordered Ibuprofen Tablet 800 mg, Tablet, By Mouth, Every 8 hours, PRN for Pain , Moderate, (4-6), may give 400mg per patientpreference and re-dose with 400mg within 8 hours if needed. Patient should only receive a total of 800mg of Ibuprofen every 8 hours., Routine, ... Start Date: 05/08/23 Stop Date: 05/12/23 Status: Discontinued PNV 1 tablet, By Mouth, Daily, 0 Refills, Maintenance, 10/21/22 10:15:00 EST, Partial fill upon patientrequest if the prescription is for a schedule II opioid drug. Start Date: 10/21/22 Status: Ordered simethicone 80 mg oral tablet, chewable 80 mg, 1, tablet, Chew, 4 times a day, PRN, # 12 tablet, Refills 0, Tot. Refills 0, Maintenance, asneeded for gas, 05/11/23 15:59:00 EDT, Route to Pharmacy Electronically, [id number], Partial fill upon patient request if the prescription is f... Start Date: 05/11/23 Status: Ordered Tums 500 mg oral tablet, chewable 1,000 mg, 2, tablet, Chew, Every 4 hours, PRN, # 60 tablet, Refills 0, Tot. Refills 0, Maintenance,Dyspepsia, 05/11/23 15:57:00 EDT, Route to Pharmacy Electronically, [id number], Partial fill upon patient request if the prescription is for a... Start Date: 05/11/23 Status: Ordered Problem List Condition Confirmation Course Effective Dates Status Health St atus Informant Mild anemia Confirmed Active Anxiety Confirmed Active Chest pain Confirmed Active GERD (gastroesophageal reflux disease) Confirmed Active Low back pain during in third trimester Confirmed Active Migraines Confirmed Active PCOS (polycystic ovarian syndrome) Confirmed Active Rubella non-immune Confirmed Active Vital Signs Most recent to oldest [Reference Range]: 1 2 3 4 Height 154 cm (05/11/23 8:07 AM) 154 cm (05/11/23 12:07 AM) 154 cm (05/10/23 6:00 PM) Weight 67.5 kg (05/08/23 2:05 PM) 67.5 kg (05/08/23 10:15 AM) Oxygen Saturation [94-100 %] 98 % (05/11/23 8:07 AM) 100 % (05/11/23 12:07 AM) 100 % (05/10/23 6:00 PM) Pulse Rate [55-90 bpm] 93 bpm *H* (05/11/23 8:07 AM) 95 bpm *H* (05/11/23 12:07 AM) 88 bpm (05/10/23 6:00 PM) Body Mass Index [18.5-24.99 kg/m2] 28.46 kg/m2 *H* (05/08/23 2:05 PM) Blood Pressure [90-138/55-84 mm Hg] 109/56mm Hg (05/11/23 8:07 AM) 105/61mm Hg (05/11/23 12:07 AM) 100/60mm Hg (05/10/23 6:00 PM) Respiratory Rate [16-30 br/min] 18 br/min (05/11/23 8:07 AM) 20 br/min (05/11/23 12:07 AM) 18 br/min (05/10/23 7:44 PM) 18 br/min (05/10/23 7:44 PM) Temperature [96.8-100.4 DegF] 98.2 DegF (05/11/23 8:07 AM) 98.2 DegF (05/11/23 12:07 AM) 98.7 DegF (05/10/23 6:00 PM) Mode of Delivery (Oxygen) Room air (05/11/23 8:07 AM) Room air (05/11/23 12:07 AM) Room air (05/10/23 12:06 AM) Blood pressure sites Arm, left (05/11/23 8:07 AM) Arm, left (05/11/23 12:07 AM) Arm, left (05/10/23 12:06 AM) Temperature Route Oral (05/11/23 8:07 AM) Oral (05/11/23 12:07 AM) Oral (05/10/23 6:00 PM) Dry Weight 67.5 kg (05/08/23 2:05 PM) Weight Obtained Via Standing scale (05/08/23 10:15 AM) Social History Social History Type Response Smoking Status Never (less than 100 in lifetime); Exposure to Secondhand Smoke: No entered on: 10/21/22 Sex Note * Javier Moe: PERFORM Event Display: Care Team Progress Note Authored Date: [id number] Patient: ??ISAAC GOLDSTEIN ? Age:??33 Years?Sex:??Female?:??1990?? Subjective Follow up for primip and term??baby in NICU.?? Mother states pumping??regularly has been difficult and she has not been doing it at night.?? Reviewed strategies to make pumping work such as setting alarms and pumping at baby's bedside.?? Mother has Spectre at home but feels the Symphony is simple to use.?? Has not reviewed Spectre instructions yet.?? LC shared videos she can watch to learn more about the Spectre.?? Mother preparing for discharge so did not do Spectre demo.?? Mother verbalizes she is able to find information on using Spectre. Assessment/Plan Routine??discharge for NICU/CCN mother ? Pumping frequency ? Hand expression progress before and after pump session ? Engorgement and/or lymphatic massage education?Collecting bottles and labels through NICU/CCN prior to discharge ? Confirming family has a personal pump ?Educating patient on switching to maintenance mode once home if they are renting a Symphony pump ?? Given 1 week NICU jeramn rental Care Plan: Frequent effective stimulation and milk removal is essential in establishing milk supply Pump q3 hours at least 8 sessions in 24hrs May pump q2 hours during the day to allow for 1 4 hour stretch at night OB Summary : 1 Parity: 1 . Weight: 2.551 kg Date, Time of : 05/08/23 20:42:00 EGA at Documented Date, Time: 39W 3D Gender: Male Complications: None Weight at Delivery Delivery Complications: None Delivery Type: Vaginal OB History History?(1,0,0,1)? # 1 ?Baby 1 ?Outcome Date:??05/08/2023?Outcome or Result:??Vaginal ?Gest Age:??39 weeks 3 days ? Outcome:??Live ? Sex:??Male?Wt:?2551 g ? Complications:??None Active Problem List Active Problem List Anxiety: (Medical) Chest pain: (Medical) GERD (gastroesophageal reflux disease): (Medical) Low back pain during in third trimester: (Medical) Migraines: (Medical) Mild anemia: (Medical) PCOS (polycystic ovarian syndrome): (Medical) Rubella non-immune: (Medical) Home Medications Acetaminophen: 650 mg, By Mouth, Every 4 hours, PRN (Pain , Mild), (1-3), may give 325mg per patient preference and re-dose with 325mg within 4 hours, if needed. ?? Patient should only receive a total of 650mg of Acetaminophen every 4 hours. Calcium Carbonate: 1,000 mg = 2 tablet, Chew, Every 4 hours, PRN (Dyspepsia) Docusate: 100 mg, By Mouth, 2 times a day, PRN (Constipation) Ferrous Fumarate: 300 mg = 1 tablet, By Mouth, Daily Ibuprofen: 600 mg = 1 tablet, By Mouth, Every 8 hours Multivitamin, : 1 tablet, By Mouth, Daily Simethicone: 80 mg = 1 tablet, Chew, 4 times a day, PRN (as needed for gas) Medications Medications (7) Active SCHEDULED: (2) Docusate Sodium 100 mg Capsule (Colace sodium 100 mg oral capsule) ??100 mg 1 capsule, By Mouth, 2 times a day Famotidine 20 mg Tablet (famotidine 20 mg oral tablet) ??20 mg, By Mouth, 2 times a day CONTINUOUS: (0) PRN: (5) Acetaminophen 325 mg Tablet (Acetaminophen Tablet) ??650 mg, By Mouth, Every 4 hours Calcium Carbonate 500 mg (Calcium 200 mg) Chewable Tablet (Tums 500 mg oral tablet, chewable) ??1,000 mg 2 tablet, Chew, Every 4 hours Docusate Sodium 100 mg Capsule (Docusate Sodium Capsule) ??100 mg 1 capsule, By Mouth, 2 times a day Ibuprofen 800 mg Tablet (Ibuprofen Tablet) ??800 mg, By Mouth, Every 8 hours Ondansetron 4 mg ODT (ondansetron 4 mg oral tablet, disintegrating) ??4 mg, By Mouth, Every 6 hours * Steff Saucedo RN: PERFORM Event Display: Discharge/Transfer Note Hospital Authored Date: [id number] Nursing Discharge Note Entered On: 05/11/2023 17:40 EDT Performed On: 05/11/2023 16:50 EDT by Steff Saucedo RN Nursing Discharge Note 2 Discharge Time : 05/11/2023 16:50 EDT Discharge Level of Care at Discharge : Home/Long Term/Foster Care Health And Human Performance Professor Utilized : No Patient Left Unit Via : Ambulatory Patient Accompanied Off Unit with : Significant other DC Instructions Provided & Signed by Pt : Yes Patient Understands D/C Instructions : Yes Verbalized Understanding of D/C Plan By : Patient Patient Instructions Discharge Signed : Yes Did Pt have Specialty Bed or Wound Vac : No Steff Saucedo RN - 05/11/2023 17:40 EDT * Marce Yanez CNMh: PERFORM Event Display: Discharge/Transfer Note Hospital Authored Date: [id number] Patient: ??ISAAC GOLDSTEIN ? Age:??33 Years?Sex:??Female?:??1990?? Admit Date Admission Date: 05/08/2023 Discharge Date 05/11/2023 OB Reason for Admission OB Reason for Admission Reason for admission: Labor OBGYN Hospital Course Pt was admitted on??05/08??in active labor, and progressed appropriately. She delivered vaginally on05/08??and had a 1st degree laceration that was repaired. Her was complicated by chronic GERD anxiety and anemia. Her course was unremarkable except for right sided abdominal pain. She is meeting all PP milestones and feels ready to be discharged today.?? currently in the NICU experiencing??seizures.?? Isaac [place] and has no one to??drive her back and forth from the hospital.?Social work??has been to see her and provided information for the [facility] to be close to visit . ? Subjective: Feeling??well overall after??vaginal delivery. Some cramping, but gets cramping relief from ibuprofen and tylenol. Reports??mild pain of perineum and is using peribottle??to good effect. Denies dizziness, lightheadedness. Lochia diminishing and no large clots - ?? like a heavy period . Voiding and ambulating without difficulty; has perez multiple BM. Denies LE pain, warmth, redness, swelling. Pumping colustrum and taking to NICU has not been able to hold or feed since delivery.? denies overwhelming feelings of depression/anxiety.??Will have??support from family??at home. Planning??Condoms for PP BCM. Declines all vaccines Objective/Physical Exam on Day of Discharge Vitals & Measurements T:??98.2?F?? HR:??93??(Peripheral)?? RR:??18?? BP:??109/56?? SpO2:??98%?? HT:??154??cm?? WT:??67.5??kg?? BMI:??28.46?? Constitutional: -Normal affect Breast: -WNL Abdomen: -Soft, tender with palpation on right side over uterus, nondistended -Fundus firm, midline, -1 Perineum: -intact, no edema -mild lochia rubra Extremities: -no swelling, no tenderness Assessment/Plan/Discharge Diagnosis exam (Z39.2):??Appropriate involution Appropriate current milk supply w/ pumping No concerns about depression at this time Vaccines: Declined COVID/TDAP, UTD on flu Pap: 2021, result unk, records pending PPBCM: condoms Reviewed warning signs including PP depression Tylenol, Motrin, Docusate and simethicone prescribed Plans to seek [facility] due to NICU stay ?? Anemia (D64.9):??Continue to take floridex, PNV and eat a diet rich in Fe containing foods. Reviewed foods like eggs, beans, meats, leafy greens 6wk PP CBC ?? Anxiety (F41.9):??Mood stable Discussed PPA/PPD symptoms and when to call. Agrees to call if she notices she needs addtl support ?? GERD (gastroesophageal reflux disease) (K21.9):??Had uncomfortable sensation w/ swallowing in hospital, suspect related to GERD Pepcid 20mg QD x2wks PP ?? Rubella non-immune (Z78.9):??Review MMR status tomorrow and recommend IM administration prior to discharge pt declined immunization ?? Care: routine PP??Care Future Appointments Thursday 3:50 PM EDT ?? With: Alma Delia Wong CNM Where: [facility] SENIOR BUSINESS INTELLIGENCE ANALYST [address] [address]- Status: Pending Thursday 3:50 PM EDT ?? With: Maeve Brito CNM Where: [facility] SENIOR BUSINESS INTELLIGENCE ANALYST [address] [address]- Status: Pending Delivery Summary Delivery Summary Maternal Information ??Labor Information ?Baby A ?Labor Onset Methods: ??Spontaneous ??Delivery Information ?Gestational Age at Delivery: ??39W 3D ?Anesthesia OB: ??Epidural ??05/08/23 23:27:06, Epidural ??05/08/23 14:53:34 ?Obstetrical Laceration: ??Perineal laceration ?Perineal Laceration: ??1st degree ?Perineal Laceration Repair: ??Vicryl suture ?Anesthesia for Repair: ??Epidural ?Delivery Complications: ??None ?Blood Loss(ml): ??150 mL ? Baby A ??Delivery Information ?Delivery Type: ??Vaginal ?Date, Time of : ??05/08/23 20:42:00 ? Position: ??Supine ?Foot of bed removed: ??Yes ?Delayed Cord Clamping: ??No ?Placenta Delivery Date/Time: ??05/08/23 21:00:00 ?Placenta Delivery Method: ??Spontaneous ?Placenta Appearance: ??Normal ?Placenta to Pathology: ??Yes ??Care Team ?Delivery CNM: ??Will CNM, Rochelly ?metal treater #1: ??Brenda Garcia RN ?metal treater #2: ??Crescencio DAVIS, Danii ?Time NICU Team Called: ??05/08/23 20:34:00 ??Labor Information ? monitoring: ??External monitor ?? Information ? Outcome: ??Live ? Position: ??Occiput anterior ? Weight: ??2.551 kg ? Score 1 minute: ??3 ? Score 5 minute: ??6 ? Score 10 minute: ??8 ?Transferred To: ??NICU ?Umbilical Cord Description: ??3 vessel cord ? Complications: ??None ?Gender: ??Male ? Procedures Performed Epidural Vaginal delivery ?? Discharge Medications ???Acetaminophen (acetaminophen 325 mg oral tablet)???Calcium Carbonate (Tums 500 mg oral tablet, chewable)???Docusate (docusate sodium 100 mg oral tablet)???Ferrous Fumarate (ferrous fumarate 300 mgoral tablet)???Ibuprofen (ibuprofen 600 mg oral tablet)???Multivitamin, (PNV )???Si methicone (simethicone 80 mg oral tablet, chewable) Immunizations during Hospitalization Vaccine Date Status Measles/Mumps/Rubella Virus Vaccine - Not Given Comments : Patient Refuses Patient refused, wants this at her visit in 4 weeks. Contraception Condoms ? Infant Feeding Method [place] Feeding Method: Pumping (05/09/23 16:10:00) Lab Results Blood Gas Event Name?? Event Result?? Date/Time?? pH 7.22??Critical 05/08/23 20:42:00 pCO2 35 mm Hg??Low 05/08/23 20:42:00 pO2 40 mm Hg??Critical 05/08/23 20:42:00 Bicarbonate, Estimated 14 mmol/L??Low 05/08/23 20:42:00 Specimen Type - Blood Gas VENOUS 05/08/23 20:42:00 ? * Steff Saucedo RN: PERFORM Event Display: Patient Education/Instruction Authored Date: [id number] Inpatient Adult Discharge Instructions [address] [address] Name: ISAAC GOLDSTEIN : 1990 Visit: 05/08/2023 13:40:00 Current Date: 05/11/2023 16:08 Account: [id number] Inpatient Adult Discharge Instructions We would like to thank you for allowing us to assist you with your healthcare needs. The following includes patient education materials and information regarding your injury/illness. Our entire staffstrives to provide an excellent experience for our patients and their families. PLEASE ENSURE YOU FOLLOW-UP PER THE INSTRUCTIONS BELOW! ?? YOUR OPINION IS IMPORTANT TO US! Please complete the survey you may receive by mail or email. Your feedback will be used to make improvements to the healthcare experiences of our patients and their families. Surveys are administered by [email or web address] ?? If further treatment with your primary care physician or another doctor is recommended, it is important for you to keep the appointment. Call your primary care physician or return to the Emergency Department immediately if your condition worsens, fails to improve, or new symptoms develop. If you need to find a doctor, you can call [facility] for a referral at [phone] or toll free at [phone]) or log in to [email or web address].. ?? You can view and manage your care through the patient portal or by using a health care mariya of your choosing. [employer] is a website that allows you to securely view your medical information including your hospital discharge summary, office visit summaries, medications and follow-up visits. You can also request appointments, renew medications, and request access to your medical information using a health care mariya of your choosing, or just ask a question. You can enroll at [email or web address] or register during your next office visit. You have been discharged from [facility], Patient Care Unit: WIN2. If you have any questions regarding these instructions after you leave, please call us and we will be happy to assist you. [facility] Your Care Team Attending Physician Caro LI, Aruna Trujillo Discharging Providers Marce Yanez CNM Reason for Admission Labor Your Diagnosis Nausea/vomiting in Anxiety Rubella non-immune Labor without complication exam Anemia GERD (gastroesophageal reflux disease) Tests Performed Below is a partial list of the tests performed during your hospitalization. You may have had other tests and procedures not included in this list. Please discuss all test results with your provider. CBC Complete Urinalysis?-- Results Pending -- CORD BLOOD GAS You will be contacted within 72 hours with your results. Primary Care Provider Not on Staff, PCP Advance Directive Health Care Proxy on File No Discharge Vitals Temperature: 98.2 DegF Height: 154 cm Pulse Rate:??93 bpm??High Weight: 67.5 kg Respiratory Rate: 18 br/min Body Mass Index:??28.46 kg/m2??High Systolic Blood Pressure: 109 mm Hg Body surface area: 1.7 Diastolic Blood Pressure: 56 mm Hg ?? Oxygen Saturation: 98 % ?? Studies Pending All tests and labs ordered during this hospital stay have been completed unless listed below. Please discuss all pending results with your provider listed above in these instructions. ?? COVID-19 (2019 Novel Coronavirus) PCR Complete Urinalysis Hold Lavender Tube (BB) What to do next Instructions From Your Doctor Discharge Orders Scheduled Follow-Up Appointments Thursday 3:50 PM EDT ?? With: Marvin SALDAÑA , Alma Delia Brush Where: [facility] SENIOR BUSINESS INTELLIGENCE ANALYST Non [address] [address]- Status: Pending Thursday 3:50 PM EDT ?? With: Daryl SALDAÑA Maeve Sheriff Where: [facility] SENIOR BUSINESS INTELLIGENCE ANALYST Non [address] [address]- Status: Pending You Need to Schedule the Following Appointments Follow Up with??[facility] When:??In 3 weeks Discharge Medications ISAAC GOLDSTEIN :1990 Visit Date:05/08/2023 Medications: Please continue your medications until treatment is completed or stopped by your provider. Medications not listed below should be discontinued. Discuss any questions related to medications with your provider. What How Much When Why Instructions Next Dose New Acetaminophen (acetaminophen 325 mg oral tablet) 650 Milligram Oral Every 4 hours as needed for Pain , Mild (1-3), may give 325mg per patient preference and re-dose with 325mg within 4 hours, if needed. ?? Patient should only receive a total of 650mg of Acetaminophen every 4 hours. ?? Pickup at [facility]/pharmacy #[id number] when needed New Calcium Carbonate (Tums 500 mg oral tablet, chewable) 2 tab(s) Chew Every 4 hours as needed for Dyspepsia Nausea/vomiting in Pickup at [facility]/pharmacy #[id number] when needed New Docusate (docusate sodium 100 mg oral tablet) 100 Milligram Oral Twice a day as needed for Constipation Pickup at [facility]/pharmacy #1157 when needed New Ibuprofen (ibuprofen 600 mg oral tablet) 1 tab(s) Oral Every 8 hours Pickup at [facility]/pharmacy #[id number] when needed New Simethicone (simethicone 80 mg oral tablet, chewable) 1 tab(s) Chew 4 times a day as needed for as needed for gas [facility] at [facility] when needed Unchanged Ferrous Fumarate (ferrous fumarate 300 mg oral tablet) 1 tab(s) Oral Daily Unchanged Multivitamin, (PNV ) 1 tab(s) Oral Daily Pharmacy Information [id number] [address] [place], [place] [id number] [phone] Test Results Below is a partial list of the most recent Laboratory test results done prior to this discharge. You may have had other tests and procedures not included in this list. Please discuss all test resultswith your provider. CBC (05/08/2023) ???WBC - 16.7 k/mm3???RBC - 3.46 m/mm3???Hgb - 9.8 Gm/dL???Hct - 30.5 %???MCV - 88.2 femtoliters???MCH - 28.3 pg???MCHC - 32.1 g/dL???Platelet Count - 269 k/mm3???RDW-SD - 40.1 femtoliters???MPV - 9.2 femtoliters???Nucleated RBC (Automated) - 0.0 #/100 WBC'S???Abs. NRBC - 0.0 k/mm3 CORD BLOOD GAS (05/08/2023) ???pH - 7.22???pCO2 - 35 mm Hg???pO2 - 40 mm Hg???Bicarbonate, Estimated - 14 mmol/L???Specimen Type - Blood Gas - VENOUS Immunizations This Visit Not Given Vaccine CommentsMeasles/Mumps/Rubella Virus Vaccine Patient Refuses Patient refused, wants this at her visit in 4 weeks. Allergies (NKA means No Known Allergies) NKA Problems Active Problems??(9) Anxiety?? Chest pain?? GERD (gastroesophageal reflux disease)?? Low back pain during in third trimester?? Migraines?? Mild anemia?? PCOS (polycystic ovarian syndrome)? Rubella non-immune?? Education Materials Below is the list of Educational Leaflet Providered with your Discharge Instructions. COVID-19 Information for Families?? : Caring for Yourself?? Nutrition While ?? OB PP Post Warning Signs?? OB PP [facility]- Discharge Instructions?? Valuables and Belongings I fully understand and agree that [facility] accepts no responsibility for all my personal property including clothing, toilet articles, radios, jewelry, dentures, hearing aids, rings, money, or any other property that is in my possession or is brought to me after admission. I understand certain valuables may be placed in a hospital safe for a short period of time. I understand that the hospital is not liable for loss or damage due to accident, fire, or other natural occurrence while said property is in the safe. I accept full responsibility for any personal property that I keep with me, and will not hold the hospital responsible in case of loss or disappearance. I acknowledge that i have been encouraged to send valuables and belongings home. ?? Date for Pt to Sign Valuables/Belongings: 05/08/23 21:49:00 ?? Other Discharge Information ? Pulmonary Rehab Status?? Pulmonary Rehab Discharge Status?? Respiratory Rate: 18 br/min ? Common Emergency Awareness Tips IS IT A STROKE? Act FAST and Check for these signs: FACE Does the face look uneven? ARM Does one arm drift down? SPEECH Does their speech sound strange? TIME Call at any sign of stroke ?? Heart Attack Signs Chest discomfort: Most heart attacks involve discomfort in the center of the chest and lasts more than a few minutes, or goes away and comes back. It can feel like uncomfortable pressure, squeezing, fullness or pain. Discomfort in upper body: Symptoms can include pain or discomfort in one or both arms, back, neck, jaw or stomach. Shortness of breath: With or without discomfort. Other signs: Breaking out in a cold sweat, nausea, or lightheaded. Remember, MINUTES DO MATTER. If you experience any of these heart attack warning signs, call to get immediate medical attention! ?? Smoking can increase your chances of developing chronic health problems and can cause harmful effects to other family members in your house. If you smoke, you are strongly encouraged to quit. Please call [employer] [facility] at [phone] or [phone] ([phone]) or log in to [email or web address] for referrals to smoking cessation programs. ?? 038 Suicide & Crisis Lifeline is available 20/04 if you or someone you know needs to find a reason to keep living. By calling 988 you'll be connected to a skilled, trained counselor at a crisis center in your area. INPATIENT DISCHARGE INSTRUCTIONS SIGNATURE PAGE ISAAC GOLDSTEIN Location:[facility] Registration Date and Time:05/08/2023 13:40 EDT Primary Care Physician: Not on Staff, PCP Attending Physician: Caro LI, Aruna Trujillo, I ISAAC GOLDSTEIN, have received the above patient education materials/instructions and have verbalized understanding. If ambulance or transport services are being used I further acknowledge being given a choice of service. ?? If you need to contact me, please call me at this number: . Patient/Mechanical Manufacturing Engineer Name: Patient/Mechanical Manufacturing Engineer Signature: Relationship to Patient: Witness Name/Signature: Date: * Steff Saucedo RN: PERFORM Event Display: Patient Education Leaflets Authored Date: [id number] COVID-19 Information for Families ?? 87 COVID-19 Information for Families Information from: www.cdc.gov/COVID19 ? What is coronavirus disease 2019 (COVID-19)? Coronavirus disease 2019 (COVID-19) is a respiratory illness that can spread from person to person.The virus that causes COVID-19 is a NEW coronavirus that [facility]. ?? How does COVID-19 spread? The virus that causes COVID-19 probably emerged from an animal source, but is now spreading from person to person. The virus spreads mainly between people who are in close contact with one another (within 6 feet) through respiratory droplets produced when an infected person coughs or sneezes. It may be possible that a person can get COVID-19 by touching a surface or object that has the virus on it and then touching their own mouth, nose or eyes. ?? What are the symptoms? (*Most common in children) ??? Fever* ??? Runny nose ??? Aching muscles ??? Cough* ??? Sore throat ??? Congestion ??? A few can have vomiting & diarrhea ?? When should a symptomatic person seek medical care? When symptoms are getting worse ??? Breathing is more difficult ?? Call the doctor immediately if: ??? Breathing is labored ??? Tightness in chest ??? Bluish lips or face ??? New confusion or cannotarouse BEFORE seeking care, call your doctor and tell them you are Being evaluated for COVID-19. ?? What can I do to protect myself and my family from getting COVID-19? Avoid close contact with people who are sick ??? Avoid touching your eyes, nose and mouth with unwashed hands ??? Wash your hands often with soap and water for at least 20 seconds. Especially: - Before you eat, prepare food or feed your children - After diapering an or using the bathroom - Use an alcohol-based hand mentally impaired teacher if soap and water are not available ?? For cleaning use: ? ? Soap & water For disinfection use: ??? Most common EPA-registered household disinfectants should be effective ??? Alcohol solutions with at least 70% alcohol ??? Diluted bleach: - 1 tsp bleach - 1 cup of water ?? What if someone I live with has symptoms? Symptomatic people should: ??? Stay home: - In an area apart from family and pets - With a separate bathroom if possible ??? Restrict activities outside your home except for medical care ??? Cover coughs or sneezes with a tissue or your elbow (discard tissue immediately) ??? Clean and disinfect frequently touched objects and surfaces every day ??? Avoid sharing personal household items: food, drink, dishes, utensils, towels, and bedding ? Is it okay for a mother with symptoms to breastfeed her ? Breast milk is the best source of nutrition for most infants. However, much is unknown about COVID-19. Whether to start or continue should be determined by the mother in coordination with her healthcare provider. A mother with confirmed or symptoms of COVID-19 should take all possibleprecautions to avoid spreading the virus to her , including washing her hands before touchingthe and wearing a face mask, if possible, while feeding at the breast. If expressing breast milk with a manual or electric breast pump, the mother should wash her hands before touching any pump or bottle parts and follow recommendations for proper pump cleaning after each use. If possible, consider having someone who is well feed the expressed breast milk to the . ? * Steff Saucedo RN: PERFORM Event Display: Patient Education Leaflets Authored Date: [id number] : Caring for Yourself ?? 40570 : Caring for Yourself When you have a new little person in your life, it???s easy to forget about yourself. There are newdemands on your time. There are also new responsibilities. But it???s important to take care of yourself. This will help you take better care of your new baby. Healthy habits Here are some healthy tips: ??? Nourish your body with good food, drink plenty of water, and get enough rest. ??? Get exercise when you can. If you leak milk, it will help to??nurse right before the activity. ??? Don't smoke. Smoking is unhealthy for you and may cause you to make less milk. Secondhand smoke is also harmful to your baby. ??? Talk to your healthcare provider about alcohol, if you choose to drink. ??? When you???re sick, tell your healthcare provider that you are .??Few medicines and??illnesses??affect , but it is important to check. ??? Ask your healthcare provider before taking any prescription or ucjg-two-kvdrgwv medicines, herbs, or supplements. ?? Comfy clothes Suggestions for being comfortable when include: ??? Find a comfortable nursing bra.??Many women find underwire uncomfortable. Some stores offer on-site fittings. Ask your healthcare provider or nurse for a referral. ??? If you have leaking milk, place breast pads inside your bra. ??? Choose an extra-supportive bra for exercise. Or you can wear 2 bras at the same time for more support. ??? Wear loose tops that can be lifted for . You can also buy clothes specially madefor moms. ?? A note about sex After delivery, it may take a while before your interest in sex returns. Share your feelings with your partner. Your healthcare provider will let you know when it is safe to resume having sex. When you???re ready, know that: ??? There are several forms of control that can be used while . Ask your healthcare provider what to use for prevention while you are nursing. ??? hormones??may cause vaginal dryness. Some women find using a water-based lubricant makes sex more comfortable. ??? Milk may??leak out??when you are aroused. Applying pressure on the nipple or using breast pads or a towel may help with this. ?? When to call your healthcare provider Call your healthcare provider if: ??? You feel overwhelmed and don't know where to turn. ??? You feel very sad or don???t want to be with your baby. ??? You feel like your baby cries all the time andwon't be soothed. ??? You are unable to exercise, or have sex, without discomfort. ??? You are unsure about a medicine, illness, or activity and its effect on . ?? Last Reviewed Date: 2021 ?? [id number] [employer]. All rights reserved. This information is not intended as a substitute for professional medical care. Always follow your healthcare professional's instructions. ?? * Steff Saucedo RN: PERFORM Event Display: Patient Education Leaflets Authored Date: [id number] Nutrition While ?? 75476 Nutrition While Do I need a special diet for ? You??don't??have to eat a special diet to??make enough milk for your baby.??Your milk will be good quality for your baby no matter what you eat.??But your body needs fuel to make breastmilk. People who are need about 500 extra calories per day.??Some people might need more. Other people might need less.??So eat your fill of a variety of healthy foods. ?? A healthy diet A healthy diet is important for all people who are nursing and offers many benefits to a new parent. When choosing foods, use the chart below as a guide. Bread, cereal, rice, and pasta Vegetables Fruit Milk, yogurt, and cheese Meat, poultry, fish, dry beans, eggs, and nuts Fats, oils, and sweets (in small amounts) ?? What???s good for you? Here are some things to do: ??? Drink fluids when you feel thirsty. There is no specific amount of water you need to drink to make enough milk. ??? Follow healthy eating guidelines. ??? Snack on fruit or low-fat dairy foods if you???re hungry between meals. ??? If your healthcare provider recommends it, keep taking vitamins. ??? Get plenty of rest. ?? What???s not good for you? Here are other things to consider: ??? Limit fatty foods and foods that are high in sugar. This includes foods like cookies and cakes. ??? Be aware that what enters your body may pass into your breastmilk. ??? Limit caffeine. It's not just in coffee. It's also in cola, tea, and chocolate. ??? Limitthe amount of fish you eat that may contain mercury. This includes tuna and swordfish. ??? Talk with your healthcare provider??before taking any??medicines. It's important to let your??healthcare provider??know that you are nursing. Some??medicines??are not safe with . ??? Remember:??Alcohol, cigarettes, and drugs pass into your breastmilk. Talk with your healthcare provider if you are using alcohol, smoking, or using drugs. They want to help you and your baby be as healthy as possible. ?? Last Reviewed Date: 2021 ?? [id number] [employer]. All rights reserved. This information is not intended as a substitute for professional medical care. Always follow your healthcare professional's instructions. ?? * Araseli Patiño RN: PERFORM Event Display: Care Team Progress Note Authored Date: [id number] Patient: ??ISAAC GOLDSTEIN ? Age:??33 Years?Sex:??Female?:??1990?? Subjective Mother started pumping 24hrs after delivery and is discouraged because she's only getting drops out. She's pumping every 3-5hrs. Assessment/Plan Isaac is a 33yo, mother of baby born at 39w3d and in NICU. She was assessed by IBCLC on D1 for pumping, and seen as a follow-up on D2 by baby's bedside. Support and reassurance given that mother should see an increase in her milk supply if she continues pumping regularly, aiming for Q3hrs. Patient encouraged to pump at baby's bedside, as getting backto her room was a barrier to her pumping. will follow up tomorrow. OB Summary : 1 . Baby A - Weight: 2.551 kg Baby A - Date, Time of : 05/08/23 20:42:00 Baby A - Gender: Male Baby A - Complications: None EGA at Documented Date, Time: 39W 3D Weight at Delivery Baby A - Delivery Type: Vaginal Delivery Complications: None OB History History?(0,0,0,0)?No previous pregnancies history have been recorded Active Problem List Active Problem List Anxiety: (Medical) Chest pain: (Medical) GERD (gastroesophageal reflux disease): (Medical) Low back pain during in third trimester: (Medical) Migraines: (Medical) Mild anemia: (Medical) PCOS (polycystic ovarian syndrome): (Medical) : (Obstetric) (07/29/22) Rubella non-immune: (Medical) Home Medications Ferrous Fumarate: 300 mg = 1 tablet, By Mouth, Daily Multivitamin, : 1 tablet, By Mouth, Daily Medications Medications (7) Active SCHEDULED: (2) Docusate Sodium 100 mg Capsule (Colace sodium 100 mg oral capsule) ??100 mg 1 capsule, By Mouth, 2 times a day Famotidine 20 mg Tablet (famotidine 20 mg oral tablet) ??20 mg, By Mouth, 2 times a day CONTINUOUS: (0) PRN: (5) Acetaminophen 325 mg Tablet (Acetaminophen Tablet) ??650 mg, By Mouth, Every 4 hours Calcium Carbonate 500 mg (Calcium 200 mg) Chewable Tablet (Tums 500 mg oral tablet, chewable) ??1,000 mg 2 tablet, Chew, Every 4 hours Docusate Sodium 100 mg Capsule (Docusate Sodium Capsule) ??100 mg 1 capsule, By Mouth, 2 times a day Ibuprofen 800 mg Tablet (Ibuprofen Tablet) ??800 mg, By Mouth, Every 8 hours Ondansetron 4 mg ODT (ondansetron 4 mg oral tablet, disintegrating) ??4 mg, By Mouth, Every 6 hours * Little Abarca DO: PERFORM Event Display: Procedures Invasive Line Authored Date: [id number] Vascular Access Insertion Entered On: 05/09/2023 2:28 EDT Performed On: 05/09/2023 2:22 EDT by Little Abarca DO Vascular Access Insertion Little Abarca DO - 05/09/2023 2:30 EDT Procedural Comments Little Abarca DO - 05/09/2023 2:30 EDT Little Abarca DO - 05/09/2023 2:30 EDT DCP GENERIC CODE Little Abarca DO - 05/09/2023 2:30 EDT Little Abarca DO - 05/09/2023 2:30 EDT History and physical note * Elizabeth Beltran CNM: MODIFY Elizabeth Beltran CNM: MODIFY, MODIFY Brad Mayo: MODIFY, MODIFY Brad Mayo: MODIFY, PERFORM Brad Mayo: PERFORM Event Display: History and Physical Hospital Authored Date: Patient: ??ISAAC GOLDSTEIN ? Age:??33 Years?Sex:??Female?:??1990?? OB Reason for Admission OB Reason for Admission?? No qualifying data available. LMP/EGA/ZACHARY Gestational Age (EGA) and ZACHARY? * Note: EGA calculated as of 05/08/2023 ?? ZACHARY:??05/12/2023?EGA*:??39 weeks 3 days ? History?(0,0,0,0)?Method:??Ultrasound??(10/22/2022) History of Present Illness Isaac (Pronounced mashpee-rah) is a 33y old [facility] 39w1d with contractions that started at 00:00. FOB Ty and??sister at bedside for support ?? - CTXs have gotten closed together since and have gotten progressively stronger, now @5mins apart. Feeling a lot of back pain with ctxs. ?? - Denies VB/LOF. ?? - Endorses FM and some mucous-y discharge ?? - Has been having some burning with urination, no suprapubic pain ?? - X2 episodes of diarrhea this morning and vomiting/nausea ?? - Has GERD, takes famotidine at home.? -??Last ate dates/smoothie this morning but vomited it up ?? - Taking in limited PO fluids d/t nausea Review of Systems General: No fevers or chills Neuro: No headache, changes in vision CV: No chest pain Pulmonary: no shortness of breath GI: No N/V or RUQ pain : No leaking fluid or bleeding Ext: No swelling, or redness of the legs Physical Exam Vitals & Measurements T:??98.2?F?? HR:??92??(Peripheral)?? RR:??17?? BP:??109/62?? SpO2:??99%?? WT:??67.5??kg? General: ?? - Appears intermittently uncomfortable but coping well. ABD:? - Gravid, skin intact Respiratory: ?? - Unlabored, even, normal RRQ ?? - CTA bilaterally Cardiovascular: ?? -??S1S2 audible ?? - No murmurs Extremities: ?? - Skin intact, no edema ?? OB Exam: ?? - Recheck with bulging bag of water ?? - cephalic by SVE and Scotty's ?? - EFW 3200g OB Assessment Baby A Baseline:140 Baseline Description:Normal, 110-160 bpm Baseline Variability:Moderate variability Accelerations:Present Deceleration:None Activity:Present Uterine Monitor Mode, UterineExternal Cervical Cervical Dilatation3 cm Cervical Ejerfyrnlt26% Station-1 Assessment/Plan Assessment:??Maternal- status reassuring ??- CAT1 tracing ??- VSS ??- Coping well, but appears anxious ? Labor without complication (O80):?? [facility]ed [facility]??in early labor, /-1 ??- Encouraged PO hydration and small snacks for energy if able ??- Birthing ball to bedside and warm compress for comfort on back ? Recheck 0 with BBW. ?? Admit to LD ?? - Labs and IV ordered ?? - Epidural for pain management (CEFM, bedrest) ?? - GBS negative ?? -??PPH risk: low PGY1 paged and aware of admission Anticipate ?? GERD (gastroesophageal reflux disease) (K21.9):? Takes famotidine 20 daily ? Anxiety (F41.9):? No current medications or therapy Be aware for risk of exacerbation ?? Nausea/vomiting in (O21.9):? this morning, Zofran ordered??at presentation [facility] ?? Rubella non-immune (Z78.9):? Has been counseled Plan vaccination ?? OB History History?(0,0,0,0)?No previous pregnancies history have been recorded Labs Labs Labs & Tests ABO: O (10/22/22) Antibody Screen: Negative (10/22/22) Chlamydia Trachomatis Amplified Probe: NEGATIVE (04/21/23) Down Syndrome Age Risk FTS: Age Risk: (10/22/22) Down Syndrome Scrn Risk FTS: Screening Risk: (10/22/22) Glucose 50 Gm, +60 Minutes: 96 mg/dL (02/25/23) Hct:??32.3 %??Low (02/25/23) Hemoglobinopathy Interpretation: Normal hemoglobins, with anemia. (10/22/22) Hepatitis B Surface Antigen: NEGATIVE (10/22/22) Hepatitis C Ab: NEGATIVE (10/22/22) Hgb:??10.4 Gm/dL??Low (02/25/23) HIV 4th Generation Ab-Ag Result: NEGATIVE (10/22/22) RH Test Only: Positive (10/22/22) RPR Titer Result: NOT INDICATED (02/25/23) Rubella IgG Ab: NEGATIVE (10/22/22) Syphilis Screen by [facility]: NEGATIVE (02/25/23) Trisomy 18 Scrn Risk FTS: Screening Risk: (10/22/22) Urine Culture: Urine Culture (12/23/22) Problem List Active Active Problem List Anxiety: (Medical) Chest pain: (Medical) GERD (gastroesophageal reflux disease): (Medical) Low back pain during in third trimester: (Medical) Migraines: (Medical) Mild anemia: (Medical) PCOS (polycystic ovarian syndrome): (Medical) , incidental: (Medical) : (Obstetric) (07/29/22) Rubella non-immune: (Medical) UTI in : (Medical) Procedure/Surgical History No qualifying data available. Home Medications Ferrous Fumarate: 300 mg = 1 tablet, By Mouth, Daily Multivitamin, : 1 tablet, By Mouth, Daily Allergies NKA Social History Alcohol Use: Never. Alcohol use in household: No. Electronic Cigarette/Vaping Electronic Cigarette Use: Never. 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 Exercise Self assessment: Fair condition. Home/Environment Living situation: Home/Independent. Lives with: Father, Mother, Siblings, Spouse, no pets. Nutrition/Health Diet: Regular. Sexual Sexually involved in last 6 months: Yes. Gender identity: Identifies as female. Self described orientation: Straight or heterosexual. Preferred pronoun: She/her. Substance Abuse Use: Never. Substance abuse in household: No. Tobacco Use: Never (less than 100 in lifetime). Exposure to Secondhand Smoke: No. Family History Mother: Arthritis; Liver disease; Thyroid disorder Father: Diabetes mellitus; Kidney stone [place]. Grandfather: Cancer Pat. Grandfather: Cancer of colon; Stroke Other (Nephew): Autism Cousin: Down syndrome Plan OB Plan Circumcision Plan: Before discharge (05/08/23) Feeding Plan: Breast milk (05/08/23) Labor Coping Mechanisms: Epidural, Nitrous (05/08/23) Patient Requests: it's a boy (05/08/23) Lab Results Test Name Test Result Date/Time Hgb 10.4 Gm/dL 02/25/2023 14:38 EDT Hct 32.3 % 02/25/2023 14:38 EDT Platelet Count 297 k/mm3 02/25/2023 14:38 EDT GBS PCR Result Not detected 04/21/2023 14:31 EDT * Elizabeth Beltran CNM: PERFORM Event Display: History and Physical Hospital Authored Date: This note was completed by a invoicing specialist student.?I personally??oversaw all components of the visit including the history of present illness, examination and medical decision making.?The note has been verified for accuracy and redocumented as needed.? Hospital Progress note * Steff Saucedo RN: PERFORM, SIGN, VERIFY Event Display: Progress Note Hospital Authored Date: [id number] Patient: ISAAC GOLDSTEIN Age: 33 years Sex: Female : 1990 Associated Diagnoses: None Author: Steff Saucedo RN Discharge instructions reviewed by pt. Pt signed and verbalized understanding. Prescriptions, next dose times, and follow up appointment reviewed by pt and pt verbalized understanding. All valuables stated to be with pt at time of discharge. ID bands verified per protocol. Pt discharged from unit to home with family, ambulatory, and stable. Infant in NICU. Findings Problem Related to Alteration in Comfort : Alteration in Comfort/new 05/11/2023 16:00 EDT Alteration in Comfort Related to Other: pp vaginal del Goals & Outcomes: Comfort Pt will report acceptable level of comfort & pain control, Pt will state importance of adhering to pain strategy regime, Pt will demonstrate necessary skills to manage pain, Non-verbal indicators will indicate comfort/pain control Interventions Implemented: Comfort Assess pain using appropriate pain scale/tools, Assess aggravating factors & prevent them accordingly, Assess alleviating factors & promote them accordingly Goals/Interventions, Comfort Yes Comfort, Problem Start 05/09/2023 1:00 Reviewed plan with, Comfort Patient Patient Progression, Comfort Resolved problem Comfort, Problem Ongoing No Comfort, Problem Resolved 05/11/2023 16:50 . * Saira Thorpe RN: PERFORM, SIGN, VERIFY Event Display: Progress Note Hospital Authored Date: [id number] Patient: ISAAC GOLDSTEIN Age: 33 years Sex: Female : 1990 Associated Diagnoses: None Author: Saira Thorpe RN Findings Patient alert and oriented times three, no sob nor resp distress noted, fundus firm, down with mildlochia. Patient denies passing clot or saturating the pad / hour. Patient reports moderate pain, pain Meds administered accordingly, baby in NICU, Pumped once today, encouraged to be pumping for often, safety precaution in place, will continue to monitor. Problem Related to Alteration in Comfort : Alteration in Comfort/new 05/10/2023 19:00 EDT Alteration in Comfort Related to Other: pp vaginal del Goals & Outcomes: Comfort Pt will report acceptable level of comfort & pain control, Pt will state importance of adhering to pain strategy regime, Pt will demonstrate necessary skills to manage pain, Non-verbal indicators will indicate comfort/pain control Interventions Implemented: Comfort Assess pain using appropriate pain scale/tools Goals/Interventions, Comfort Yes Comfort, Problem Start 05/09/2023 1:00 Reviewed plan with, Comfort Patient Patient Progression, Comfort Pt progressing according to plan Comfort, Problem Ongoing Yes . * Lacy Lobo LPN: VERIFY, PERFORM, SIGN Event Display: Progress Note Hospital Authored Date: [id number] Patient: ISAAC GOLDSTEIN Age: 33 years Sex: Female : 1990 Associated Diagnoses: None Author: Lacy Lobo LPN OOB ambulated to NICU a couple times today. Mother stated baby doing better today. Binder given perrequest. Complains of mallory pain but declined medication all day. Motrin and tylenol just given. Using tucks for comfort. Encouarged to pump more often. Patient Care team information Care Team Personnel Name: Not on Staff, PCP Position: [facility] Physician (General Medicine) Member Role: PCP Care Team Related Persons Name: ISAAC GOLDSTEIN Address: Address: home [address] [place] [address] Name: AMANDEEP MONTO[place] Address: [place] [address]
--- OUTSIDE RECORDS SUMMARY | 2024-02-08 09:41 | XMS_ITS | Continuity of Care Document ---
Author Organization [facility] ter Address [address] [place] [address]- Care Team Providers Care Art Therapy Specialist Name Role Phone Not on Staff, PCP Primary Care Physician Unavail able [place] [facility] [place](s): 05/11/23 - 07/11/[address] [address] Discharge Disposition: A-D/C Home Attending Physician: Aruna Elizondo MD Admitting Physician: Aruna Elizondo MD Referring Physician: Aruna Elizondo MD Allergies, Adverse Reactions, Alerts No Known Allergies Medications Colace sodium 100 mg oral capsule 100 mg, 1, capsule, By Mouth, 2 times a day, PRN, # 60 capsule, Refills 1, Tot. Refills 1, Maintenance, Constipation, 07/10/23 13:15:00 EDT, Route to Pharmacy Electronically, [facility]/pharmacy #[id number], Partial fill upon patient request [...] 1 Refills, Maintenance, 06/09/23 11:52:00 EDT, Ointment, [facility]/pharmacy #[id number], Partial fill upon patient request if the prescription is for a schedule II opioid drug., 1 applicatio... Start Date: 06/09/23 Status: Ordered Senna 8.6 mg oral tablet 1 or 2 tablets, By Mouth, Daily at bedtime, PRN, # 60 tablet, Refills 0, Tot. Refills 0, Maintenance, Constipation, 07/10/23 13:15:00 EDT, Route to Pharmacy Electronically, [facility]/pharmacy #[id number] Tablet,Partial fill upon patient request [...] Related Persons Name: AMANDEEP MONTOYA Address: home [address] [place] [address] Name: TOLBERT, MOMIN Address: Address: [address]
--- OUTSIDE RECORDS SUMMARY | 2024-02-08 09:41 | XMS_ITS | Continuity of Care Document ---
Author Organization [facility] Address [address] [place] [address]- Care Team Providers Care Plastics Spreading Machine Operator Name Role Phone Not on Staff, PCP Primary Care Physician Unavail able [place] [facility] [place](s): 06/16/23 - 07/16/23 [facility] [address] [place] [address]- [place] Allergies, Adverse Reactions, Alerts No Known Allergies Medications Colace sodium 100 mg oral capsule 100 mg, 1, capsule, By Mouth, 2 times a day, PRN, # 60 capsule, Refills 1, Tot. Refills 1, Maintenance, Constipation, 07/10/23 13:15:00 EDT, Route to Pharmacy Electronically, [id number], [...] 1 Refills, Maintenance, 06/09/23 11:52:00 EDT, Ointment, [id number], Partial fill upon patient request if the prescription is for a schedule II opioid drug., 1 applicatio... Start Date: 06/09/23 Status: Ordered Senna 8.6 mg oral tablet 1 or 2 tablets, By Mouth, Daily at bedtime, PRN, # 60 tablet, Refills 0, Tot. Refills 0, Maintenance, Constipation, 07/10/23 13:15:00 EDT, Route to Pharmacy Electronically, [facility]/pharmacy #[id number] Tablet,Partial fill upon patient request [...] Persons Name: AMANDEEP MONTOYA Address: home [address] [place] [address] Name: TOLBERT, MOMIN Address: Address: [address]
--- OUTSIDE RECORDS SUMMARY | 2024-02-08 09:41 | XMS_ITS | Continuity of Care Document ---
Author Organization [facility] Juan Daniel [facility] Address [address], [address] [place] [address]- Care Team Providers Care Automobile Body Repairer Name Role Phone Not on Staff, PCP Primary Care Physician Unavail able Encounter [facility] [place] [place] Date(s): 11/19/22 - 12/19/22 [facility] Juan Daniel [facility] [address], [address] [place], [place] [address] [[email or web address] Allergies, Adverse Reactions, Alerts No Known Allergies [...]
--- OUTSIDE RECORDS SUMMARY | 2024-02-08 09:41 | XMS_ITS | Continuity of Care Document ---
Author Organization [facility] Address [address] [place] [address]- Care Team Providers Care Supervisor Livestock Yard Name Role Phone Not on Staff, PCP Primary Care Physician Unavail able En[place] [facility] [place] Date(s): 02/03/23 - 03/05/23 [facility] and [address] [address]- Allergies, Adverse Reactions, Alerts No Known Allergies Medications ferrous sulfate 325 mg oral tablet 1 tablet = 325 mg, By Mouth, Daily, # 30 tablet, 6 Refills, Maintenance, 02/26/23 9:48:00 EDT, Tablet, [facility]/pharmacy #[id number], Partial fill upon patient request if the prescription is for a schedule II opioid drug., 154, cm, 02/25/23 13:39:00 EDT, Height,... Start Date: 02/26/23 Stop Date: 09/24/23 Status: Ordered PNV 1 tablet, By Mouth, Daily, 0 [...] Problem List Condition Confirmation Course Effective Dates [facility] atus Informant Mild anemia Confirmed Active Anxiety Confirmed Active Migraines Confirmed Active Encounter [...] Personnel Name: Not on Staff, PCP Position: [facility] Physician (General Medicine) Member Role: PCP Care Team Related Persons Name: AMANDEEP MONTOYA
--- OUTSIDE RECORDS SUMMARY | 2024-02-08 09:41 | XMS_ITS | Continuity of Care Document ---
Author Organization [facility] Del[facility] n[facility] Address [address], 4t [place] [address]- Care Team Providers Care Addiction Social Worker Name Role Phone Not on Staff, PCP Primary Care Physician Unavail able Encounter [facility] Date(s): 05/05/23 - 06/07/23 [facility] Juan Daniel [facility] [address], [address]th [address] [place], [place] [address] Attending Physician: Liza Solorio MD Referring Physician: Svetlana SALDAÑA, Radha Mao Allergies, Adverse Reactions, Alerts No Known Allergies Problem List Condition Confirmation Course Effective Dates [...] Persons Name: AMANDEEP MONTOYA Address: home [address] [place] [address] Name: SINAN TOLBERT Address: Address: [address]
--- OUTSIDE RECORDS SUMMARY | 2024-02-08 09:41 | XMS_ITS | Continuity of Care Document ---
Author Organization [facility] Address [address] [place] [address]- Care Team Providers Care Tumbling Instructor Name Role Phone Not on Staff, PCP Primary Care Physician Unavail able Encounter [facility] Date(s): 01/21/23 - 03/19/23 [facility] and [address] [address]- Attending Physician: Not on Staff, Attending MD Referring Physician: Svetlana SALDAÑA, Radha Mao [...] Anxiety Confirmed Active Chest pain Confirmed Active Migraines Confirmed Active PCOS (polycystic ovarian syndrome) Confirmed Active , incidental Confirmed Active Rubella non-immune Confirmed Active UTI [...]
--- OUTSIDE RECORDS SUMMARY | 2024-02-08 09:41 | XMS_ITS | Continuity of Care Document ---
Author Organization [facility] Del[facility] Address [address], 4t [place] [address]- Care Team Providers Care Director Of Culture Name Role Phone Not on Staff, PCP Primary Care Physician Unavail able Encounter [facility] [place] Date(s): 05/08/23 - 06/07/23 [facility] Juan Daniel Duff[facility] [address], 4th [address] [place], [place] [address] Attending Physician: Roldan Mc Admitting Physician: Roldan Mc Referring Physician: Roldan Mc Allergies, Adverse Reactions, Alerts No Known Allergies [...] Persons Name: AMANDEEP MONTOYA Address: home [address] [place] [address] Name: SINAN TOLBERT Address: Address: [address]
--- OUTSIDE RECORDS SUMMARY | 2024-02-08 09:41 | XMS_ITS | Continuity of Care Document ---
Author Organization [facility] Address [address] [place] [address]- Care Team Providers Care Manager Pipeline Name Role Phone Not on Staff, PCP Primary Care Physician Unavail able Encounter [facility] [place] Date(s): 06/09/23 - 07/09/23 [facility] [address] [address] Allergies, Adverse Reactions, Alerts No Known Allergies Medications PEG-3350 with Electrolytes (Eqv-GoLYTELY) oral powder for [...] Refills 0, Tot. Refills 0, Maintenance, Constipation, 06/09/23 11:50:00 EDT, Route to [facility]acy [facility], [id number] Tablet,Partial fill upon patient request if the prescripti... Start Date: 06/09/23 Status: Ordered Problem List Condition Confirmation Course [...] Related Persons Name: AMANDEEP MONTOYA Address: home [address] [place] [address] Name: DIDI SINAN Address: Address: [address]
--- OUTSIDE RECORDS SUMMARY | 2024-02-08 09:41 | XMS_ITS | Continuity of Care Document ---
Author Organization [facility] Address [address] [place] [address]- Care Team Providers Care Plastic Fabricator Name Role Phone Not on Staff, PCP Primary Care Physician Unavail able Encounter [facility] Date(s): 02/26/23 - 03/28/23 [facility] and [address] [address]- Allergies, Adverse Reactions, Alerts No Known Allergies [...]
--- OUTSIDE RECORDS SUMMARY | 2024-02-08 09:42 | XMS_ITS | Continuity of Care Document ---
Author Organization [facility] Address [address] [place] [address]- Care Team Providers Care Redevelopment Specialist Name Role Phone Not on Staff, PCP Primary Care Physician Unavail able [place] [facility] [place]16[place]23 - 07/23/[address] [address]- Attending Physician: Brenda Edwards MD Admitting Physician: Brenda Edwards MD Referring Physician: Alma Delia Wong CNM Allergies, Adverse Reactions, Alerts No Known Allergies Medications Colace sodium 100 mg oral capsule 100 mg, 1, capsule, By Mouth, 2 times a day, PRN, # 60 capsule, Refills 1, Tot. Refills 1, Maintenance, Constipation, 07/10/23 13:15:00 EDT, Route to Pharmacy Electronically, [facility]/pharmacy #[id number], Partial fill upon patient request if [...] 1 Refills, Maintenance, 06/09/23 11:52:00 EDT, Ointment, [facility]/pharmacy #[id number], Partial fill upon patient request if the prescription is for a schedule II opioid drug., 1 applicatio... Start Date: 06/09/23 Status: Ordered Senna 8.6 mg oral tablet 1 or 2 tablets, By Mouth, Daily at bedtime, PRN, # 60 tablet, Refills 0, Tot. Refills 0, Maintenance, Constipation, 07/10/23 13:15:00 EDT, Route to Pharmacy Electronically, [facility]/pharmacy #[id number] Tablet,Partial fill upon patient request if [...] Role: PCP Care Team Related Persons Name: LINDSAYAMANDEEP Address: home [address] [place] [address] Name: SINAN TOLBERT Address: Address: [address]
--- OUTSIDE RECORDS SUMMARY | 2024-02-08 09:42 | XMS_ITS | Continuity of Care Document ---
[facility] [employer] Address [address], 4t [place] [address]- Care Team Providers Care Technical Sourcing Recruiter Name Role Phone Not on Staff, PCP Primary Care Physician Unavail able [facility] [place] Date(s): 12/23/22 - [facility] [employer] [address] 4[address] Floor [place], [place] [address] Attending Physician: Ana Delaney CNM Allergies, Adverse Reactions, Alerts No Known [...] No entered on: 10/21/22 Sex Note * Event Display: PDC Detailed Anatomy Survey, Lvl 2 * Event Display: PDC Detailed Anatomy Survey, Lvl 2 Authored Date: [id number] OBSTETRICS REPORT PATIENT INFO: CMRN: [id number] BMRN: [id number] : [birth year] (32 yrs)(F) Name: ISAAC MERRITT Visit Date: 12/23/2022 09:53 am PERFORMED BY: Performed By: Xiomara Adrian RDMS Attending: Raghavendra Verde MD Referred By: VIGNESH Delaney CNM Location: [address] INDICATIONS: PCOS (polycystic ovarian syndrome) E28.2 EVALUATION: Num Of Fetuses: 1 Heart Rate(bpm): 164 Cardiac Activity: Present Presentation: Cephalic Placenta: Anterior Amniotic Fluid JUDD FV: Within normal limits BIOMETRY: BPD: 43.4 mm G.Age: 19w 1d HC: 163.4 mm G.Age: 19w 1d AC: 136.4 mm G.Age: 19w 1d FL: 30.5 mm G.Age: 19w 3d HUM: 28.9 mm G.Age: 19w 3d CER: 20.1 mm G.Age: 19w 1d NFT: 3.3 mm LV: 6.7 mm CM: 4.6 mm CI: 71.53 % 70 - 86 FL/HC: 18.7 % 16.8 - 19.8 HC/AC: 1.20 1.09 - 1.39 FL/BPD: 70.3 % FL/AC: 22.4 % 20 - 24 Est. FW: 281 gm 0 lb 10 oz GESTATIONAL AGE: LMP: 22w 2d Date: 07/20/22 ZACHARY: 04/26/23 U/S Today: 19w 2d ZACHARY: 05/17/23 Best: 20w 0d Det. By: Radha Tena 1st ZACHARY: 05/12/23 (10/22/22) ANATOMY: Cranium: No anomalies seen Cavum: No anomalies seen Ventricles: No anomalies seen Choroid Plexus: No anomalies seen Cerebellum: No anomalies seen Posterior Fossa: No anomalies seen Nuchal Fold: No anomalies seen Face: No anomalies seen Lips: Upper lip appears normal Palate: No anomalies seen Heart: 4-chamber appeared normal RVOT: No anomalies seen LVOT: No anomalies seen Diaphragm: No anomalies seen Stomach: No anomalies seen Abdomen: No anomalies seen Abdominal Wall: No anomalies seen Cord Vessels: 3-vessel cord Kidneys: No anomalies seen Bladder: No anomalies seen Spine: No anomalies seen Upper Extremities: Arms appear normal Lower Extremities: Legs appear normal CERVIX UTERUS ADNEXA: Cervix Length: 4.3 cm. Appears closed Adnexa Not well seen. Comment The patient declined vaginal scanning for cervical length screening. COMMENTS: The standard anatomy survey is unremarkable. Raghavendra Verde MD Electronically Signed Final Report 12/23/2022 11:06 am * Event Display: PDC Detailed Anatomy Survey, Lvl 2 Authored Date: [id number] Please click on pdf link to open report Patient Care team information Care Team Personnel Name: Not on Staff, PCP Position: [facility] Physician (General Medicine) Member Role: PCP Care Team Related Persons Name: AMANDEEP MONTOYA
--- OUTSIDE RECORDS SUMMARY | 2024-02-08 09:42 | XMS_ITS | Continuity of Care Document ---
Author Organization [facility] Juan Daniel Lin [facility] Address [address], [address] [place] [address]- Care Team Providers Care Dredge Runner Name Role Phone Not on Staff, PCP Primary Care Physician Unavail able Encounter [facility] [place] Date(s): 11/17/22 - 12/17/22 [facility] Juan Daniel Dacostas [facility] [address], [address]th [place], [place] [address] Allergies, Adverse Reactions, Alerts No Known Allergies [...]
--- OUTSIDE RECORDS SUMMARY | 2024-02-08 09:42 | XMS_ITS | Continuity of Care Document ---
Author Organization [facility] Address [address] [place] [address]- Care Team Providers Care Rivet Heater Gas Name Role Phone Not on Staff, PCP Primary Care Physician Unavail able [place] [facility] [place]17[place]23 - 06/11/23 [facility] and [address] [address]- Attending Physician: Not on Staff, Attending MD Admitting Physician: Caro LI, Aruna Trujillo Referring Physician: Alma Delia Wong CNM Allergies, Adverse Reactions, Alerts No Known Allergies Medications Preparation H 14%-74.9%-0.25% rectal ointment 1 application, [...] Personnel Name: Not on Staff, PCP Position: [facility] Physician (General Medicine) Member Role: PCP Care Team Related Persons Name: AMANDEEP MONTOYA Address: [place] [address] Name: SINAN TOLBERT Address: Address: [address]
--- OUTSIDE RECORDS SUMMARY | 2024-02-08 09:42 | XMS_ITS | Continuity of Care Document ---
Author Organization [facility] Address [address] [place] [address]- Care Team Providers Care Hydroelectric Systems Technician Name Role Phone Not on Staff, PCP Primary Care Physician Unavail able Encounter [facility] [place] Date(s): 10/22/22 - 10/29/22 [facility] [address] [place] [address] Attending Physician: Liza Solorio MD Referring Physician: Sonali Richardson CNM Allergies, Adverse Reactions, Alerts No Known Allergies Medications Bactrim DS 800 mg-160 mg oral tablet 1 tablet, By Mouth, 2 times a day, for 5 days, drink plenty of fluids, # 10 tablet, 0 Refills, Acute 11/01/22 9:06:00 EST, 10/27/22 9:06:00 EST, Tablet, [facility]/pharmacy #[id number], Partial fill upon patient request if the prescription is for a schedule II opi... Start Date: 10/27/22 Stop Date: 11/01/22 Status: Ordered PNV 1 tablet, By Mouth, [...] 10/21/22 Sex Note * Event Display: PDC Nuchal Transluscency * Event Display: PDC Nuchal Transluscency Authored Date: [id number] OBSTETRICS REPORT PATIENT INFO: CMRN: [id number] BMRN: [id number] : [birth year] (32 yrs)(F) Name: ISAAC MERRITT Visit Date: 10/22/2022 09:56 am PERFORMED BY: Performed By: Xiomara Adrian RDMS Attending: Raghavendra Verde MD Referred By: SAROJ Richardson CNM Location: [address] INDICATIONS: Uterine size-date discrepancy today O26.84_ First Trimester NT Screening Z36.82 EVALUATION: Num Of Fetuses: 1 Gest. Sac: Seen in the intrauterine cavity Yolk Sac: Visualized Pole: Visualized Heart Rate(bpm): 169 Cardiac Activity: Present Presentation: Variable Placenta: Anterior Amniotic Fluid JUDD FV: Within normal limits BIOMETRY: GESTATIONAL AGE: LMP: 13w 3d Date: 07/20/22 ZACHARY: 04/26/23 Best: 11w 1d Det. By: Radha Tena 1st ZACHARY: 05/12/23 (10/22/22) 1ST TRIMESTER GENETIC SONOGRAM SCREENING: CRL: 42.4 mm G.Age: 11w 1d ZACHARY: 05/12/23 Nuc Trans: 1.1 mm ANATOMY: Choroid Plexus: SEEN Heart: SEEN Stomach: No anomalies but LIMITED views Abdominal Wall: NOT WELL SEEN Bladder: SEEN Upper Extremities: SEEN Lower Extremities: SEEN CERVIX UTERUS ADNEXA: Cervix Appears closed Adnexa Not well seen. COMMENTS: Live intrauterine gestation. Measurements are suggestive of incorrect dates. The EDC was assigned by today's study. The nuchal translucency portion of the first trimester screen was done, and the patient was sent to the lab for the biochemical markers portion of the test. The results should be sent by the lab to your office. Raghavendra Verde MD Electronically Signed Final Report 10/22/2022 11:44 am * Event Display: PDC Nuchal Transluscency Authored Date: [id number] Please click on pdf link to open report Patient Care team information Care Team Personnel Name: Not on Staff, PCP Position: [facility] Physician (General Medicine) Member Role: PCP Care Team Related Persons Name: AMANDEEP MONTOYA
--- OUTSIDE RECORDS SUMMARY | 2024-02-08 09:42 | XMS_ITS | Continuity of Care Document ---
Author Organization [facility] Juan Daniel [employer] Address [address] [facility] [address], [address] [place] [address]- Care Team Providers Care Hogshead Builder Name Role Phone Not on Staff, PCP Primary Care Physician Unavail able [id number] 10/16[facility]22 - 11/15/22 [facility] Juan Daniel [facility] [employer] [address] [facility] [address] [place], [place] [address] Allergies, Adverse Reactions, Alerts [...]
--- OUTSIDE RECORDS SUMMARY | 2024-02-08 09:42 | XMS_ITS | Continuity of Care Document ---
Author Organization [facility] ter Address [address] [place] [address]- Care Team Providers Care Director Of Patient Financial Services Name Role Phone Not on Staff, PCP Primary Care Physician Unavail able [place] [facility] [place] [facility] [place](s): 05/15/23 - 05/15/[address] [id number] Discharge Disposition: A-D/C Home Attending Physician: Aruna Elizondo MD Admitting Physician: Aruna Elizondo MD Referring Physician: Aruna Elizondo MD Allergies, Adverse Reactions, Alerts No Known Allergies Medications acetaminophen 325 mg oral tablet 650 mg, By Mouth, Every 4 hours, PRN, (1-3), may give 325mg per patient preference and re-dose [id number] within 4 hours, if needed. Patient should only receive a total of 650mg of Acetaminophen every 4 hours., # 90 tablet, Refills 0, Tot. Refills 0... Start Date: 05/11/23 Status: Ordered docusate sodium 100 mg oral tablet = 100 mg, By Mouth, 2 times a day, PRN Constipation, # 60 tablet, 0 Refills, Maintenance, 05/11/23 15:57:00 EDT, Tablet, [facility]/pharmacy #[id number], Partial fill upon patient request if [...] II op... Start Date: 05/11/23 Status: Ordered PNV 1 tablet, By Mouth, [...] Most recent to oldest [Reference Range]: 1 Weight 62.4 kg (05/15/23 1:08 PM) Oxygen Saturation [94-100 %] 100 % (05/15/23 1:08 PM) Pulse Rate [55-90 bpm] 94 bpm *H* (05/15/23 1:08 PM) Blood Pressure [90-138/55-84 mm Hg] 99/6 1mm Hg (05/15/23 1:08 PM) Respiratory Rate [16-30 br/min] 18 br/mi n (05/15/23 1:08 PM) Temperature [96.8-100.4 DegF] 98.2 DegF (05/15/23 1:08 PM) Mode of Delivery (Oxygen) Room air (05/15/23 1:08 PM) Blood pressure sites Arm, right (05/15/23 1:08 PM) Temperature Route Oral (05/15/23 1:08 PM) Dry Weight 62.4 kg (05/15/23 1:08 PM) Weight Obtained Via Standing scale (05/15/23 1:08 PM) Dry Weight Obtained Via Standing scale (05/15/23 1:08 PM) Social History Social History Type Response Smoking Status Never (less than 100 in lifetime); Exposure to Secondhand Smoke: No entered on: 10/21/22 Sex Note * Kimberlyn Rouse RN: PERFORM Event Display: Discharge/Transfer Note Hospital Authored Date: [id number] Nursing Discharge Note Entered On: 05/15/2023 15:20 EDT Performed On: 05/15/2023 15:06 EDT by Kimberlyn Rouse RN Nursing Discharge Note 2 Discharge Time : 05/15/2023 15:06 EDT Discharge Level of Care at Discharge : Home/Care Home/Foster Care Patient Left Unit Via : Ambulatory Patient Accompanied Off Unit with : Other: self DC Instructions Provided & Signed by Pt : Yes Patient Understands D/C Instructions : Yes Patient Instructions Discharge Signed : Yes Did Pt have Specialty Bed or Wound Vac : No Kimberlyn Rouse RN - 05/15/2023 15:19 EDT * Kimberlyn Rouse RN: PERFORM Event Display: Patient Education/Instruction Authored Date: [id number] Inpatient Adult Discharge Instructions [address] [id number] Name: ISAAC GOLDSTEIN : 1990 Visit: 05/15/2023 12:46:00 Current Date: 05/15/2023 15:01 Account: [id number] Inpatient Adult Discharge Instructions We would like [...] and their families. Surveys are administered by [employer] ?? If further treatment with your primary care physician or another doctor is recommended, it is important for you to keep the appointment. Call your primary care physician or return to the Emergency Department immediately if your condition worsens, fails to improve, or new symptoms develop. If you need to find a doctor, you can call [facility] [employer] for a referral at [phone] or toll free at [phone]) or log in to [email or web address].. ?? You can view and manage your care through the patient portal or by using a health care mariya of your choosing. [employer] is a website that allows you to securely view your medical information including your hospital discharge summary, office visit summaries, medications and follow-up visits. You can also request appointments, renew medications, and request access to your medical information using a health care mariya of your choosing, or just ask a question. You can enroll at [email or web address] or register during your next office visit. You have been discharged from [facility], Patient Care Unit: [id number]. If you have any questions regarding these instructions after you leave, please call us and we will be happy to assist you. [facility] Your Care Team Attending Physician Aruna Elizondo MD Tests Performed Below is a partial list of the tests performed during your hospitalization. You may have had other tests and procedures not included in this list. Please discuss all test results with your provider. Primary Care Provider Not on Staff, PCP Advance Directive Health Care Proxy on File No Discharge Vitals Temperature: 98.2 DegF Weight: 62.4 kg Pulse Rate:??94 bpm??High ?? Respiratory Rate: 18 br/min ?? Systolic Blood Pressure: 99 mm Hg ?? Diastolic Blood Pressure: 61 mm Hg ?? Oxygen Saturation: 100 % ?? Studies Pending All tests and labs ordered during this hospital stay have been completed unless listed below. Please discuss all pending results with your provider listed above in these instructions. ?? Complete Urinalysis (UA) What to do next Instructions From Your Doctor Discharge Orders Scheduled Follow-Up Appointments Thursday 3:50 PM EDT ?? With: Alma Delia Wong CNM Trudi Where: [facility] [employer] [address] [place] [address]- Status: Pending Thursday 3:50 PM EDT ?? With: Maeve Brito CNM Sharita Where: [facility] [employer] [address] [place] [address]- Status: Pending You Need to Schedule the Following Appointments Follow Up with??Leesa SALDAÑA, Geni Hernandezs Head Where: [address] [place] [address] [facility] [place] [address]- Discharge Medications ISAAC GOLDSTEIN :1990 Visit Date:05/15/2023 Medications: Please continue your medications until treatment is completed or stopped by your provider. Medications not listed below should be discontinued. Discuss any questions related to medications with your provider. What How Much When Why Instructions Next Dose Unchanged Acetaminophen (acetaminophen 325 mg oral tablet) 650 Milligram Oral Every 4 hours as needed for Pain , Mild (1-3), may give 325mg per patient preference and re-dose with 325mg within 4 hours, if needed. ?? Patient should only receive a total of 650mg of Acetaminophen every 4 hours. ?? Unchanged Calcium Carbonate (Tums 500 mg oral tablet, chewable) 2 tab(s) Chew Every 4 hours as needed for Dyspepsia Nausea/vomiting in Unchanged Docusate (docusate sodium 100 mg oral tablet) 100 Milligram Oral Twice a day as needed for Constipation Unchanged Ferrous Fumarate (ferrous fumarate 300 mg oral tablet) 1 tab(s) Oral Daily Unchanged Ibuprofen (ibuprofen 600 mg oral tablet) 1 tab(s) Oral Every 8 hours Unchanged Multivitamin, (PNV ) 1 tab(s) Oral Daily Unchanged Simethicone (simethicone 80 mg oral tablet, chewable) 1 tab(s) Chew 4 times a day as needed for as needed for gas Test Results Below is a partial list of the most recent Laboratory test results done prior to this discharge. You may have had other tests and procedures not included in this list. Please discuss all test resultswith your provider. Allergies (NKA means No Known Allergies) NKA Problems Active Problems??(8) Anxiety?? Chest pain?? GERD (gastroesophageal reflux disease)?? Low back pain during in third trimester?? Migraines?? Mild anemia?? PCOS (polycystic ovarian syndrome)?? Rubella non-immune?? Education Materials Below is the list of Educational Leaflet Providered with your Discharge Instructions. After a Vaginal ?? Valuables and Belongings I fully understand and agree that [facility] accepts no responsibility for all my personal [...] encouraged to send valuables and belongings home. ? Other Discharge Information ? Pulmonary Rehab Status?? [...] are strongly encouraged to quit. Please call [facility] [email or web address] Link at [phone] or [phone]) or log in to [email or web address] for referrals to smoking cessation programs. ?? 710 Suicide & Crisis Lifeline is available 20/04 if you or someone you know needs to find a reason to keep living. By calling 701 you'll be connected to a skilled, trained counselor at a crisis center in your area. INPATIENT DISCHARGE INSTRUCTIONS SIGNATURE AVERY ISAAC GOLDSTEIN Location:[facility] Registration Date and Time:05/15/2023 12:46 EDT Primary Care Physician: Not on Staff, PCP Attending Physician: Caro LI, Aruna Trujillo, I ISAAC GOLDSTEIN, have received the above patient education materials/instructions and have verbalized understanding. If ambulance or transport services are being used I further acknowledge being given a choice of service. ?? If you need to contact me, please call me at this number: . Patient/Consulting Software Engineer Name: Patient/Consulting Software Engineer Signature: Relationship to Patient: Witness Name/Signature: Date: * Kimberlyn Rouse RN: PERFORM Event Display: Patient Education Leaflets Authored Date: [id number] After a Vaginal ?? After a Vaginal After having a baby, your body may be very tired. It can take time to recover.. [facility].??In some cases, you may be able to go home the same day. Right after the delivery Your temperature and blood pressure will be checked until they are stable. A nurse or other healthcare provider will watch you as you rest. You may have afterbirth pains. These are cramps caused by the uterus shrinking. Sanitary pads are used to soak up the discharge of the uterine lining. To make sure that you aren???t bleeding too much, the pad will be checked. And the firmness of your uterus will be checked. To do this, a nurse will gently push down on your stomach. If you had anesthesia, you???ll be watched closely until you can feel and move your toes. If you have pain between your vagina and anus (perineal pain), an ice pack can help. ?? [facility] care While still in the hospital or center, you???ll learn how to hold and feed your baby. You will??also be given directions on how to care for your baby. This includes bathing and feeding.? Getting ready to go home You may be anxious to go home as soon as possible. Before you and your baby go home, a healthcare provider will check to be sure you are healthy enough to take care of your baby and yourself. You???re ready to go home when: ??? You can walk to and use the bathroom without help. ??? You can eat solid food and swallow pills(if needed). ??? You have no sign of infection or other health problems, including fever.? Youhave pain control. ??? Your vaginal bleeding isn't heavy. ??? You are able to care for your newbornand are emotionally stable. Before going home, you???ll be given written directions for home self-care after vaginal delivery. Follow these directions carefully. If you have questions or concerns, talk about them now. ?? If you have stitches You may have get stitches in the skin near your vagina. The stitches might have closed an incision that enlarged the opening of your vagina (episiotomy). Or you may have needed stitches to repair torn skin. Either way, your stitches should dissolve in weeks. Until then, it's important to keep the stitches clean. You can help reduce mild pain, aid healing, and reduce your risk of infection. These tips can help: ??? Gently wipe from front to back after you urinate or have a bowel movement. ??? After wiping, spray warm water on the area. Or you can have a sitz bath. This means sitting in a tub with a few inches of water in it. Then pat the area dry or use a hairdryer on a cool setting. ??? Don't use soap or any solution except water on the area. ??? You can take a shower unless told not to. ??? Change sanitary pads at least every 2 to 4 hours[address] ??? Place cold or heat packs on the area as directed by your healthcare providers or nurses. Keep a thin towel between the pack and your skin. ???Sit on firm seats so the stitches pull less. ?? follow-up Schedule a follow-up exam with your healthcare provider for about 6 weeks after delivery.During this exam, your uterus and vaginal area will be checked. Contact your provider if you think you or your baby are having any problems. ?? When to call your healthcare provider Call your healthcare provider right away if any of the following occur: ??? A fever of 100.4?? F ( 38.0??C) or higher, or as directed by your provider ??? Bleeding that needs a new sanitary pad afteran hour, or large blood clots. hemorrhage is more bleeding than normal after the of a baby. It most often happens after the placenta is delivered. But it can also happen later. ??? Pain in your vagina that gets worse and isn't eased with medicine ??? Swelling, discharge, or more pain from vaginal tear or episiotomy ??? Burning, pain, red streaks, or lumpy areas in your breasts that may occur with flu-like symptoms ??? Cracks, blisters, or blood on your nipples ??? Burning or pain when you urinate ??? Nausea or vomiting ??? Dizziness or fainting ??? Feelings of extreme sadnessor anxiety, or a feeling that you don???t want to be with your baby ??? Belly pain that isn???t eased with medicine ??? Vaginal discharge that has a bad odor ??? No bowel movement for 5 days ??? Painful urination, or inability to control urination ??? Redness, warmth, or pain in the lower leg ??? Chest pain ?? Last Reviewed Date: 2022 ?? [id number] [employer]. All rights reserved. This information is not intended as a substitute for professional medical care. Always follow your healthcare professional's instructions. ?? Patient Care team information Care Team Personnel Name: Not on Staff, PCP Position: [facility] Physician (General Medicine) Member Role: PCP Name: Funmi Wyatt RN Position: [facility] OB RN Member Role: Patient Care Provider Care Team Related Persons Name: ISAAC GOLDSTEIN Address: [id number] Address: home [address] [place] [address] Name: AMANDEEP MONTOYA Address: [place] [address]
--- OUTSIDE RECORDS SUMMARY | 2024-02-08 09:42 | XMS_ITS | Continuity of Care Document ---
Author Organization [facility] Address [address] [address]- Care Team Providers Care Beader Tender Name Role Phone Not on Staff, PCP Primary Care Physician Unavail able [place] [facility] [place] [facility] [address] [place] [address]- Attending Physician: Roldan Mc Admitting Physician: Roldan Mc Referring Physician: AdmtrRoldan Allergies, Adverse Reactions, Alerts No Known Allergies Medications Colace sodium 100 mg oral capsule 100 mg, 1, capsule, By Mouth, 2 times a day, PRN, # 60 capsule, Refills 1, Tot. Refills 1, Maintenance, Constipation, 07/10/23 13:15:00 EDT, Route to Pharmacy Electronically, [facility]/pharmacy #[id number], Partial fill upon patient request if [...] H 14%-74.9%-0.25% rectal ointment 1 application, Rectally, Daily, PRN as needed for pain, # 57 Gm, 0 Refills, Maintenance, 08/18/23 16:26:00 EST, Ointment, [facility]/pharmacy #[id number], Partial fill upon patient request if the prescription is for a schedule II opioid drug., 1 application Rectal... Start Date: 08/18/23 Status: Ordered Senna 8.6 mg oral tablet 1 or 2 tablets, By Mouth, Daily at bedtime, PRN, # 60 tablet, Refills 0, Tot. Refills 0, Maintenance, Constipation, 07/10/23 13:15:00 EDT, Route to Pharmacy Electronically, [facility]/pharmacy #[id number] Tablet,Partial fill upon patient request if the prescripti... Start Date: 07/10/23 Status: Ordered Problem List Condition Confirmation Course Effective Dates Status Health St at[facility] Informant Mild anemia Confirmed Active Anxiety Confirmed Active Chest pain Confirmed Active Ganglion cyst of wrist Confirmed Active GERD (gastroesophageal reflux disease) Confirmed Active Migraines Confirmed Active PCOS (polycystic ovarian syndrome) Confirmed Active Rubella non-immune Confirmed Active Urge urinary incontinence Confirmed Active Social History Social History Type Response Smoking Status Never (less than 100 in lifetime); Exposure to Secondhand Smoke: No entered on: 10/21/22 Sex Patient Care team information Care Team Personnel Name: Not on Staff, PCP Position: S Physician (General Medicine) Member Role: PCP Care Team Related Persons Name: AMANDEEP MONTOYA Address: home [address] [place] [address] Name: DIDI SINAN Address: Address: [address]
--- OUTSIDE RECORDS SUMMARY | 2024-02-08 09:42 | XMS_ITS | Continuity of Care Document ---
Author Organization [facility] ter Address [address] [place] [address]- Care Team Providers Care Catalyst Recovery Operator Name Role Phone Not on Staff, PCP Primary Care Physician Unavail able [place] [facility]23 - 08/18/[address] [id number] Discharge Disposition: A-D/C Home Attending Physician: Tony Perla MD Admitting Physician: Tony Perla MD Referring Physician: Tony Perla MD Allergies, Adverse Reactions, Alerts No Known Allergies Medications Colace sodium 100 mg oral capsule 100 mg, 1, capsule, By Mouth, 2 times a day, PRN, # 60 capsule, Refills 1, Tot. Refills 1, Maintenance, Constipation, 07/10/23 13:15:00 EDT, Route to Pharmacy Electronically, [facility]/pharmacy #[id number], Partial fill upon patient request if [...] 0 Refills, Maintenance, 08/18/23 16:26:00 EST, Ointment, [facility]/pharmacy #[id number], Partial fill upon patient request if the prescription is for a schedule II opioid drug., 1 application Rectal... Start Date: 08/18/23 Status: Ordered Senna 8.6 mg oral tablet 1 or 2 tablets, By Mouth, Daily at bedtime, PRN, # 60 tablet, Refills 0, Tot. Refills 0, Maintenance, Constipation, 07/10/23 13:15:00 EDT, Route to Pharmacy Electronically, [facility]/pharmacy #[id number] Tablet,Partial fill upon patient request if [...] to oldest [Reference Range]: 1 2 3 Height 155 cm (08/18/23 3:33 PM) Oxygen Saturation [94-100 %] 100 % (08/18/23 4:41 PM) 100 % (08/18/23 4:30 PM) 100 % (08/18/23 4:25 PM) Pulse Rate [55-90 bpm] 97 bpm *H* (08/18/23 3:33 PM) Blood Pressure [90-138/55-84 mm Hg] 105/71mm Hg (08/18/23 4:41 PM) 100/60mm Hg (08/18/23 4:30 PM) 107/50mm Hg (08/18/23 4:25 PM) Respiratory Rate [16-30 br/min] 18 br/min (08/18/23 4:41 PM) 18 br/min (08/18/23 4:30 PM) 15 br/min *L* (08/18/23 4:25 PM) Temperature [96.8-100.4 DegF] 96.8 DegF (08/18/23 3:33 PM) Mode of Delivery (Oxygen) Room air (08/18/23 4:41 PM) Room air (08/18/23 4:30 PM) Room air (08/18/23 4:25 PM) Blood pressure sites Arm, left (08/18/23 4:41 PM) Arm, left (08/18/23 4:30 PM) Arm, left (08/18/23 4:25 PM) Temperature Route Temporal (08/18/23 3:33 PM) Dry Weight 65 kg (08/18/23 3:33 PM) Social History Social History Type Response Smoking Status Never (less than 100 in lifetime); Exposure to Secondhand Smoke: No entered on: 10/21/22 Sex Note * Virginia Hudson RN: PERFORM Event Display: Discharge/Transfer Note Hospital Authored Date: [id number] Nursing Discharge Note Entered On: 08/18/2023 16:32 EST Performed On: 08/18/2023 16:32 EST by Virginia Hudson RN Nursing Discharge Note 2 Discharge Time : 08/18/2023 17:06 EST Marianne cMkeon RN - 08/18/2023 17:06 EST Discharge Level of Care at Discharge : Home/Long-Term/Foster Care Patient Left Unit Via : Wheelchair Patient Accompanied Off Unit with : Responsible adult DC Instructions Provided & Signed by Pt : Yes Patient Understands D/C Instructions : Yes Patient Instructions Discharge Signed : Yes Did Pt have Specialty Bed or Wound Vac : No Virginia Hudson RN - 08/18/2023 16:32 EST * Virginia Hudson RN: PERFORM Event Display: Patient Education/Instruction Authored Date: [id number] Surgery Adult Discharge Instructions [place] [id number] Name: ISAAC GOLDSTEIN : 1990?? Visit: 08/18/2023 15:26?? Current Date: 08/18/2023 16:34 ?? Account: [id number]?? Surgery Discharge Instructions We would like to thank [...] and their families. Surveys are administered by [employer] ?? If further treatment with your primary care physician or another doctor is recommended, it is important for you to keep the appointment. Call your primary care physician or return to the Emergency Department immediately if your condition worsens, fails to improve, or new symptoms develop. If you need to find a doctor, you can call [facility] for a referral at [phone] or toll free at [phone]) or log in to [email or web address].. ?? [facility], in keeping with [facility] guidance, no longer requires face masks for staff, patientsor visitors in most situations. Similiar to time spent indoors at other locations, there is the chance that you were exposed to repiratory viruses during your time with us (such as flu or COVID-19). If you develop symptoms concerning for a viral respiratory infection, please seek testing (and treatment if indicated) from your medical provider or home test kit. ?? You can view and manage your care through the patient portal or by using a health care mariya of your choosing. [employer] is a website that allows you to securely view your medical information including your hospital discharge summary, office visit summaries, medications and follow-up visits. You can also request appointments, renew medications, and request access to your medical information using a health care mariya of your choosing, or just ask a question. You are entitled to know the individuals who participated in your treatment. This information is available within your medical record and will be provided upon your request. You can enroll at [email or web address] or register d uring your next office visit. You have been discharged from [facility], Patient Care Unit: ENDO??. If you have any questions regarding these instructions after you leave, please call us and we will be happy to assist you. [facility] Your Care Team Attending Physician Tony Perla MD?? Discharging Providers Tony Perla MD Reason for Admission RECTAL BLEEDING Primary Care Provider Not on Staff, PCP?? Advance Directive Health Care Proxy on File No Patient refuses to discuss What to do next Instructions From Your Doctor We completed your colonoscopy today We noted the following findings:Hemorrhoids?? -Follow up with your primary care physician -OK to resume your home medications and usual diet today?? -You may trial Chiquita Jo (ANGEL)??wipes to see if this helps with some of the anal/rectal pain you are experiencing -Try Preparation H suppositories? It is very important that you follow these instructions: ???You may have a mild sore throat or hoarseness after the procedure. This is because of the tube and the anesthetic.?You may feel nauseated today. This sometimes happens because of the medications that are used. This should get better within a few hours. If your nausea continues for more than 24 hours contact your doctor's office. .?Do not drive any motor vehicle or operate dangerous equipment. Weakness and lack of coordinationare the result of the medications that were administered during the procedure.?Do not conduct important business or sign any legal documents on the day of the procedure, sinceyou may feel drowsy from the medications that were administered today.?If you have redness or swelling at sites where medications were given, place a warm wet washcloth over the affected area for twenty minutes. If the symptoms persist for over two days please contact your doctor's office.?Call your doctor's office if you develop fever greater than 101 degrees or chills during the next 48 hours.?Please call for any issues or questions that may arise. Our office phone number is [phone] ?? Orders?? Daystay Protocol, ??08/18/23 15:39:00 EST?? Scheduled Follow-Up Appointments Thursday 1:10 PM EST ?? With: Alma Delia Wong CNM Where: [facility] [employer] [address] [place] [address]- Status: Pending You Need to Schedule the Following Appointments Follow Up with??follow up with your PCP Follow Up with??PCP Not on Staff When:??In 0 days Discharge Medications ISAAC GOLDSTEIN :1990 Visit Date:08/18/2023 Medications: Please continue your medications until treatment is completed or stopped by your provider. You may resume your daily prescription medications. Discuss any questions related to medications with your provider. What How Much When Instructions Next Dose Changed mineral oil/ petrolatum/ phenylephrine topical (Preparation H 14%-74.9%-0.25% rectal ointment) 1 mariya Per rectum Daily as needed for as needed for pain Pickup at [facility]/pharmacy #[id number] Unchanged Docusate (Colace sodium 100 mg oral capsule) 1 capsule Oral Twice a day as needed for Constipation Unchanged PEG Electrolyte Solution (PEG-3350 with Electrolytes (Eqv-GoLYTELY) oral powder for reconstitution) 240 Milliliter Oral Every 10 minutes Unchanged Senna (Senna 8.6 mg oral tablet) 1 or 2 tablets Oral Daily at Bedtime as needed for Constipation Pharmacy Information [facility]/pharmacy #[id number]: [address], [place] [phone] Allergies (NKA means No Known Allergies) NKA Education Materials Below is the list of Educational Leaflet Providered with your Discharge Instructions. Hemorrhoids Discharge Instructions?? Surgery Medical Daystay Surgical Overnight Discharge Instructions?? Valuables and Belongings I fully understand and agree that [facility] accepts no responsibility for all my personal [...] to send valuables and belongings home. ?? Review of Valuable and Belonging List: With patient Date for Pt to Sign Valuables/Belongings: 08/18/23 15:33:00 ?? Valuables & Belongings ?? Clothes Electronic devices Jewelry Monetary Items Personal devices Miscellaneous Medications (Valuables) Valuables at Bedside Jacket, Pants, Shirt, Shoes, Undergarments ? Valuables Sent Home ? Valuables Sent to Security ? Other Discharge Information ? Case Management Discharge Plan?? Discharge Plan?? Discharge Level of Care at Discharge: Home/Long-Term/Foster Care ?? Pulmonary Rehab Status?? Pulmonary Rehab Discharge Status?? [...] are strongly encouraged to quit. Please call [facility] [employer] Link at [phone] or [phone] ([phone]) or log in to [email or web address] for referrals to smoking cessation programs. ?? The National Suicide Prevention Hotline is available 20/04 if you or someone you know needs to find a reason to keep living. By calling 8-108-447-Collaaj (5807) you'll be connected to a skilled, trained counselor at a crisis center in your area. SURGERY DISCHARGE INSTRUCTIONS SIGNATURE OSIEL ZAYASA Location:[facility] Registration Date and Time:08/18/2023 15:26 EST Primary Care Physician: Not on Staff, PCP Attending Physician: Minda LI, [facility], ISAAC CALDWELL, have received the above patient education materials/instructions and have verbalized understanding. If ambulance or transport services are being used I further acknowledge being given a choice of service. ?? If you need to contact me, please call me at this number: . Patient/Consumer Services Consultant Name: Patient/Consumer Services Consultant Signature: Relationship to Patient: Witness Name/Signature: Date: * Virginia Hudson RN: PERFORM, SIGN, VERIFY Event Display: Patient Education Handout Authored Date: [id number] * Virginia Hudson RN: PERFORM Event Display: Patient Education Leaflets Authored Date: [id number] Hemorrhoids Discharge Instructions ?? 672 ??Hemorrhoids Discharge Instructions ??You must carefully read the Consumer Information Use and Disclaimer below in order to understand and correctly use this information?? About this topic Hemorrhoids are swollen veins in the rectum. Your rectum is where stool leaves your body. You may be able to see or feel your hemorrhoids outside of your body, but some hemorrhoids are inside of yourrectum and cannot be seen. Hemorrhoids can cause itching, pain, and bleeding. Being constipated or having hard stools can make your hemorrhoids worse.?? What care is needed at home? Ask your doctor what you need to do when you go home. Make sure??you ask questions if you do not understand what the doctor says. This??way you will know what you need to do. ??? Soak your bottomin a few inches of warm water for 10 to 15 minutes??at a time. You can do this 2 to 3 times each day. Do not add soap,??bubble bath, or anything to the water. ??? Use rmri-cpl-dbnpzez medicines to treat your hemorrhoids. These??include ointments and creams to help with pain and swelling. You can??also use a product like witch silvia to help dry out the skin in the area. ??? To help with constipation: ??? Use stool softeners when needed. ??? Eat high-fiber foods. These include whole grains, fruits, and??vegetables. ??? Drink plenty of water and other fluids each day. This helps to??keep your stools soft. ??? Set a regular schedule to try and have a bowel movement. Do??not ignore the urge to go to the bathroom. Don???t hold it in. ??? Give yourself plenty of time to have a bowel movement, but do not linger on the toilet either, by sitting and reading for a long time. ??? Do mild exercise each day like taking a walk. ??? Avoid heavy lifting or straining while the hemorrhoid is healing. ?? What follow-up care is needed? If your problem does not get better, other care may be needed. Your doctor may ask you to make visits to the office to check on your progress. Be sure to keep these visits.?? What drugs may be needed? The doctor may order drugs to: ??? Help with pain and swelling ??? Ease itching ??? Soften stools ?? Will physical activity be limited? Working out can help with digestion. It might help keep you from having hard stools. Ask your doctor about the best kind of exercise for you. ?? What problems could happen? You may have very bad bleeding. ??? Sometimes, treatments do not work. Some hemorrhoids are very??large. You might need surgery for either of these. ?? When do I need to call the doctor? You have a lot of bleeding from your rectum. ??? Your bowel movement looks like tar. ??? You are not able to pass stool because of pain from your??hemorrhoids. ??? Your pain gets worse and is nothelped by ixfl-ycv-kuhbxwn??medicines, warm water, or your home care. ??? You have a fever of 100.4??F (38??C) or higher. ?? Teach Back: Helping You Understand The Teach Back Method helps you understand the information we are giving you. After you talk with the staff, tell them in your own words what you learned. This helps to make sure the staff has described each thing clearly. It also helps to explain things that may have been confusing. Before going home, make sure you can do these: ??? I can tell you about my condition. ??? I can tell you what may help ease my pain. ??? I can tell you what I will do if I have blood in my rectum. Where can I learn more?[place] [employer]https://familydoctor.or g/condition/hemorrhoids/National Digestive Disease Information Clearinghousehttps://www.niddk.nih.go v/health-information/digestive-diseases/hemorrhoids/definition-factsLast Reviewed Fxtb1556-36-36Viyglyql Information Use and Disclaimer:This generalized information is a limited summary of diagnosis,treatment, and/or medication information. It is not meant to be comprehensive and should be used asa tool to help the user understand and/or assess potential diagnostic and treatment options. It does NOT include all information about conditions, treatments, medications, side effects, or risks thatmay apply to a specific patient. It is not intended to be medical advice or a substitute for the medical advice, diagnosis, or treatment of a health care provider based on the health care provider's examination and assessment of a patient???s specific and unique circumstances. Patients must speak with a health care provider for complete information about their health, medical questions, and treatment options, including any risks or benefits regarding use of medications. This information does not endorse any treatments or medications as safe, effective, or approved for treating a specific patient. [employer] and its affiliates disclaim any warranty or liability relating to this information or the use thereof. The use of this information is governed by the Terms of Use, available at??htt ps://www.[employer]/en/know/lnroaglc-ppkdspvjkelkc-iblvjXfqj Updated 11/20/21? * Virginia Hudson RN: PERFORM Event Display: Patient Education Leaflets Authored Date: [id number] Surgery Medical Daystay Surgical Overnight Discharge Instructions ?? 295 Medical Daystay/Surgical Overnight Discharge Instructions ? Since your coordination and judgment may be altered by medication and/or anesthesia, a responsible adult must drive you home from the hospital. ? If you have received medication for pain or sedation while under our care, you should not drive, operate machinery, drink alcohol, or sign any legal documents for 24 hours.?? You should have someone with you at home tonight. ? Remain at home the day of discharge.?? You may be up and about unless otherwise instructed by your physician. ? You may resume your daily prescription medication schedule.?? Any depressant medication should be avoided for 24 hours unless otherwise instructed by your surgeon or anesthesiologist. ? Call your physician for a follow-up appointment.? If you experience unusual or severe pain not relied by your pain medication, excessive bleedingor drainage, persistent nausea and vomiting, excessive swelling or redness, foul odor from incisionsite or fever over 100.6F, you need to call your physician. ? A follow-up phone call by a nurse will be made the day after your procedure.?? If you have stayed with us over night, you will not be receiving a follow-up phone call. ? Nausea and vomiting are a common side effect of prescription pain medication.?? We recommend that pills are not taken on an empty stomach.?? While taking any prescription pain medication you should not drive or drink alcohol. ? Patient Care team information Care Team Personnel Name: Not on Staff, PCP Position: [facility] Physician (General Medicine) Member Role: PCP Care Team Related Persons Name: AMANDEEP MONTYOA Address: home [address] [place] [address] Name: SINAN TOLBERT Address: Address: [place] [address]
--- OUTSIDE RECORDS SUMMARY | 2024-02-08 09:42 | XMS_ITS | Continuity of Care Document ---
Author Organization [facility] Address [address] [place] [address]- Care Team Providers Care Dental Professional Name Role Phone Not on Staff, PCP Primary Care Physician Unavail able Encounter [facility] Date(s): 05/07/23 - 06/06/23 [facility] [address] [address] Allergies, Adverse Reactions, Alerts No Known Allergies [...] Persons Name: AMANDEEP MONTOYA Address: home [address] [place] [address] Name: SINAN TOLBERT Address: Address: [address]
--- OUTSIDE RECORDS SUMMARY | 2024-02-08 09:42 | XMS_ITS | Continuity of Care Document ---
Author Organization [facility] Address [address] [place] [address]- Care Team Providers Care Components Engineer Name Role Phone Not on Staff, PCP Primary Care Physician Unavail able [place] [facility] [place] 12/11/22 - 01/10/23 [facility] and [address] [address]- Allergies, Adverse Reactions, Alerts No Known Allergies [...] Personnel Name: Not on Staff, PCP Position: [facility] Physician (General Medicine) Member Role: PCP Care Team Related Persons Name: AMANDEEP MONTOYA
--- OUTSIDE RECORDS SUMMARY | 2024-02-08 09:42 | XMS_ITS | Continuity of Care Document ---
Author Organization [facility] Address [address] [address]- Care Team Providers Care Solar Designer Name Role Phone Not on Staff, PCP Primary Care Physician Unavail able [place] [facility] [place]17[place]23 - 06/18/23 [facility] and [address] [address]- Attending Physician: Alma Delia Wong CNM Admitting Physician: Alma Delia Wong CNM Referring Physician: Alma Delia Wong CNM Allergies, [...] Role: PCP Care Team Related Persons Name: OSIELAMANDEEP CHÁVEZ Address: [place] [address] Name: TOLBERT, MOMIN Address: Address: [address]
--- OUTSIDE RECORDS SUMMARY | 2024-02-08 09:42 | XMS_ITS | Continuity of Care Document ---
Author Organization [facility] Juan Daniel [employer] Address [address] [facility], [address] [place] [address]- Care Team Providers Care Social Services Manager Name Role Phone Not on Staff, PCP Primary Care Physician Unavail able [place] [facility] [place]23 [facility] Juan Daniel Dacostas [employer] [address] [facility], [address] [place] [address]- Attending Physician: Precious Hoyt MD Referring Physician: Leesa SALDAÑA, Geni Barrett Head Allergies, Adverse Reactions, Alerts No Known Allergies Medications ferrous fumarate 300 mg oral tablet 1 tablet = 300 mg, By Mouth, Daily, 0 Refills, Maintenance, 03/30/23 13:44:00 EDT, Partial fill upon patient request if the prescription is for a schedule II opioid drug. Start Date: 03/30/23 Status: Ordered PNV 1 tablet, By Mouth, [...]
--- OUTSIDE RECORDS SUMMARY | 2024-02-08 09:42 | XMS_ITS | Continuity of Care Document ---
Author Organization [facility] Address [address] [place] [address]- Care Team Providers Care Veterinary Parasitologist Name Role Phone Not on Staff, PCP Primary Care Physician Unavail able [place] [facility] [place]16/23 - 08/15/[address] [address]- Attending Physician: Roldan Mc Admitting Physician: AdmtrRoldan Referring Physician: Admtr, ArBreanna Allergies, Adverse Reactions, Alerts No Known Allergies Medications Colace sodium 100 mg oral capsule 100 mg, 1, capsule, By Mouth, 2 times a day, PRN, # 60 capsule, Refills 1, Tot. Refills 1, Maintenance, Constipation, 07/10/23 13:15:00 EDT, Route to Pharmacy Electronically, [facility]/pharmacy #[id number], Partial fill upon patient [...] 1 Refills, Maintenance, 06/09/23 11:52:00 EDT, Ointment, [facility]/pharmacy #[id number], Partial fill upon patient request if the prescription is for a schedule II opioid drug., 1 applicatio... Start Date: 06/09/23 Status: Ordered Senna 8.6 mg oral tablet 1 or 2 tablets, By Mouth, Daily at bedtime, PRN, # 60 tablet, Refills 0, Tot. Refills 0, Maintenance, Constipation, 07/10/23 13:15:00 EDT, Route to Pharmacy Electronically, [facility]/pharmacy #[id number] Tablet,Partial fill upon patient [...] Related Persons Name: AMANDEEP MONTOYA Address: home [address] [place] [address] Name: TOLBERT, MOMIN Address: Address: [address]
--- OUTSIDE RECORDS SUMMARY | 2024-02-08 09:42 | XMS_ITS | Continuity of Care Document ---
Author Organization [facility] Address [address] [place] [address]- Care Team Providers Care Bender Machine Operator Name Role Phone Not on Staff, PCP Primary Care Physician Unavail able [place] [facility] [place] 03/05/23 [facility] and [address] [address]- Allergies, Adverse Reactions, Alerts No Known Allergies Medications ferrous sulfate 325 mg oral tablet 1 tablet = 325 mg, By Mouth, Daily, # 30 tablet, 6 Refills, Maintenance, 02/26/23 9:48:00 EDT, Tablet, [id number], Partial fill upon patient request [...] Problem List Condition Confirmation Course Effective Dates [facility] atus Informant Mild anemia Confirmed Active Anxiety [...] Personnel Name: Not on Staff, PCP Position: [facility] Physician (General Medicine) Member Role: PCP Care Team Related Persons Name: AMANDEEP MONTOYA
--- OUTSIDE RECORDS SUMMARY | 2024-02-08 09:42 | XMS_ITS | Continuity of Care Document ---
Author Organization [facility] Address [address] [address]- Care Team Providers Care Professor Of Mechanical Engineering Name Role Phone Not on Staff, PCP Primary Care Physician Unavail able Encounter [facility] Date(s): 03/26/23 - 04/25/23 [facility] [address] [place] [address]- Allergies, Adverse Reactions, Alerts No Known Allergies [...]
--- OUTSIDE RECORDS SUMMARY | 2024-02-08 09:42 | XMS_ITS | Continuity of Care Document ---
Author Organization [facility] Address [address] [place] [address]- Care Team Providers Care Group Controller Name Role Phone Not on Staff, PCP Primary Care Physician Unavail able Encounter [facility] [id number] Date(s): 06/12/23 - [facility]/19/23 [facility] and [address] [address] Attending Physician: Aruna Elizondo MD Referring Physician: Mary Will CNM Allergies, Adverse Reactions, Alerts No Known [...] List Condition Confirmation Course Effective Dates Status [facility] St atus Informant Mild anemia Confirmed Active Anxiety Confirmed Active Chest pain Confirmed Active GERD (gastroesophageal reflux disease) Confirmed Active Low back pain during in third trimester Confirmed Active Migraines Confirmed Active PCOS (polycystic ovarian syndrome) Confirmed Active Rubella non-immune Confirmed Active Vital Signs Most recent to oldest [Reference Range]: 1 Height 154 cm (06/12/23 11:28 AM) Weight 64.4 kg (06/12/23 11:28 AM) Body Mass Index [18.5-24.99 kg/m2] 27.15 kg/m2 *H* (06/12/23 11:28 AM) Blood Pressure [90-138/55-84 mm Hg] 96/6 3mm Hg (06/12/23 11:28 AM) Blood pressure sites Arm, left (06/12/23 11:28 AM) Weight Obtained Via Standing scale (06/12/23 11:28 AM) Social History Social History Type Response Smoking Status Never (less than 100 in lifetime); Exposure to Secondhand Smoke: No entered on: 10/21/22 Sex Patient Care team information Care Team Personnel Name: Not on Staff, PCP Position: S Physician (General Medicine) Member Role: PCP Care Team Related Persons Name: AMANDEEP MONTOYA Address: home [address] [place] [address] Name: TOLBERT, MOMIN Address: Address: [address]
--- OUTSIDE RECORDS SUMMARY | 2024-02-08 09:42 | XMS_ITS | Continuity of Care Document ---
Author Organization [facility] Address [address] [place] [address]- Care Team Providers Care Billet Recorder Name Role Phone Not on Staff, PCP Primary Care Physician Unavail able [facility] Date(s): 05/11/23 - 07/19/23 [facility] [address] [address] Attending Physician: Maeve Brito CNM Admitting Physician: Maeve Brito CNM Referring Physician: Mary Will CNM Allergies, Adverse Reactions, Alerts No Known Allergies Medications Colace sodium 100 mg oral capsule 100 mg, 1, capsule, By Mouth, 2 times a day, PRN, # 60 capsule, Refills 1, Tot. Refills 1, Maintenance, Constipation, 07/10/23 13:15:00 EDT, Route to Pharmacy Electronically, [facility]/pharmacy #[id number], Partial fill upon patient request [...] 1 Refills, Maintenance, 06/09/23 11:52:00 EDT, Ointment, [facility]/pharmacy #[id number], Partial fill upon patient request if the prescription is for a schedule II opioid drug., 1 applicatio... Start Date: 06/09/23 Status: Ordered Senna 8.6 mg oral tablet 1 or 2 tablets, By Mouth, Daily at bedtime, PRN, # 60 tablet, Refills 0, Tot. Refills 0, Maintenance, Constipation, 07/10/23 13:15:00 EDT, Route to Pharmacy Electronically, [facility]/pharmacy #[id number] Tablet,Partial fill upon patient request [...] Role: PCP Care Team Related Persons Name: LINDSAY AMANDEEP Address: home [address] [place] [address] Name: SINAN TOLBERT Address: Address: [address]
--- OUTSIDE RECORDS SUMMARY | 2024-02-08 09:42 | XMS_ITS | Continuity of Care Document ---
Author Organization [facility] Address [address] [address]- Care Team Providers Care Web Production Designer Name Role Phone Not on Staff, PCP Primary Care Physician Unavail able Encounter [facility] Date(s): 03/02/23 - 05/13/23 [facility] and [address] [address]- Attending Physician: Not on Staff, Attending MD Referring Physician: Mary Will CNM Allergies, Adverse Reactions, Alerts No Known Allergies Medications acetaminophen 325 mg oral tablet 650 mg, By Mouth, Every 4 hours, PRN, (1-3), may give 325mg per patient preference and re-dose [id number] within 4 hours, if needed. Patient should only receive a total of 650mg of Acetaminophen every 4 hours., # 90 tablet, Refills 0, Tot. Refills 0... Start Date: 05/11/23 Status: Ordered docusate sodium 100 mg oral tablet = 100 mg, By Mouth, 2 times a day, PRN Constipation, # 60 tablet, 0 Refills, Maintenance, 05/11/23 15:57:00 EDT, Tablet, [facility]/pharmacy #[id number], Partial fill [...] Team Related Persons Name: ISAAC GOLDSTEIN Address: [address] Address: [address] Name: AMANDEEP MONTOYA Address: [place] [address]
--- OUTSIDE RECORDS SUMMARY | 2024-02-08 09:42 | XMS_ITS | Continuity of Care Document ---
Author Organization [facility] Address [address] [place] [address]- Care Team Providers Care Shaving Machine Operator Name Role Phone Not on Staff, PCP Primary Care Physician Unavail able Encounter [facility] Date(s): 05/15/23 - 06/14/[address] [address] Allergies, Adverse Reactions, Alerts No Known Allergies Medications Preparation H 14%-74.9%-0.25% rectal ointment 1 application, Rectally, 2 times a day, PRN as needed for pain, # 57 Gm, 1 Refills, Maintenance, 06/09/23 11:52:00 EDT, Ointment, [facility]/pharmacy #[id number], Partial fill upon patient request [...] Problem List Condition Confirmation Course Effective Dates [facility] St atus Informant Mild anemia Confirmed Active [...] Team Related Persons Name: OSIELAMANDEEP CHÁVEZ Address: [place] [address] Name: SINAN TOLBERT Address: Address: [address]
--- OUTSIDE RECORDS SUMMARY | 2024-02-08 09:42 | XMS_ITS | Continuity of Care Document ---
Author Organization [facility] Address [address] [place] [address]- Care Team Providers Care Boat Rental Clerk Name Role Phone Not on Staff, PCP Primary Care Physician Unavail able Encounter [facility] Date(s): 06/22/23 - 07/30/[address] [address]- Attending Physician: Brenda Edwards MD Admitting Physician: Brenda Edwards MD Referring Physician: Alma Delia Wong CNM Allergies, Adverse Reactions, Alerts No Known Allergies Medications Colace sodium 100 mg oral capsule 100 mg, 1, capsule, By Mouth, 2 times a day, PRN, # 60 capsule, Refills 1, Tot. Refills 1, Maintenance, Constipation, 07/10/23 13:15:00 EDT, Route to Pharmacy Electronically, [facility]/pharmacy #[id number], Partial fill upon patient request [...] 1 Refills, Maintenance, 06/09/23 11:52:00 EDT, Ointment, [facility]/pharmacy #[id number], Partial fill upon patient request if the prescription is for a schedule II opioid drug., 1 applicatio... Start Date: 06/09/23 Status: Ordered Senna 8.6 mg oral tablet 1 or 2 tablets, By Mouth, Daily at bedtime, PRN, # 60 tablet, Refills 0, Tot. Refills 0, Maintenance, Constipation, 07/10/23 13:15:00 EDT, Route to Pharmacy Electronically, [facility]/pharmacy #[id number] Tablet,Partial fill upon patient request [...] Team Related Persons Name: LINDSAYAMANDEEP Address: home [address] [place] [address] Name: SINAN TOLBERT Address: Address: [address]
--- OUTSIDE RECORDS SUMMARY | 2024-02-08 09:42 | XMS_ITS | Continuity of Care Document ---
Author Organization [facility] Address [address] [place] [address]- Care Team Providers Care Precision Agriculture Specialist Name Role Phone Not on Staff, PCP Primary Care Physician Unavail able Encounter [facility] Date(s): 05/07/23 - 05/07/[address] [address] Discharge Disposition: A-D/C Home Attending Physician: Precious Hoyt MD Admitting Physician: Precious Hoyt MD Referring Physician: Precious Hoyt MD Allergies, Adverse Reactions, Alerts No Known [...] non-immune Confirmed Active UTI in Confirmed Active Vital Signs Most recent to oldest [Reference Range]: 1 Weight 66.4 kg (05/07/23 3:30 PM) Oxygen Saturation [94-100 %] 100 % (05/07/23 3:30 PM) Pulse Rate [55-90 bpm] 93 bpm *H* (05/07/23 3:30 PM) Respiratory Rate [16-30 br/min] 18 br/mi n (05/07/23 3:30 PM) Temperature [96.8-100.4 DegF] 98.3 DegF (05/07/23 3:30 PM) Mode of Delivery (Oxygen) Room air (05/07/23 3:30 PM) Temperature Route Oral (05/07/23 3:30 PM) Dry Weight 66.4 kg (05/07/23 3:30 PM) Weight Obtained Via Standing scale (05/07/23 3:30 PM) Dry Weight Obtained Via Standing scale (05/07/23 3:30 PM) Social History Social History Type Response Smoking Status Never (less than 100 in lifetime); Exposure to Secondhand Smoke: No entered on: 10/21/22 Sex Note * Radha Guillaume: PERFORM Event Display: Patient Education Leaflets Authored Date: Kick Counts ?? [id number] Kick Counts It???s normal to worry about your baby???s health. Generally, you will feel your baby start to movein your 2nd trimester at around 16 to 24 weeks. Getting to know the pattern of your baby's movements is one way to know what's normal for you and baby. This is called a kick count. Talk with your healthcare provider about kick counts and your specific situation. Always follow your provider's instructions. How to count kicks Here is just one way to do kick counts. Always follow your healthcare provider's instructions. Starting at 28 weeks, count your baby's movements daily. Time how long it takes you to feel 10 kicks, flutters, swishes, or rolls. Ideally, you want to feel at least 10 movements in 2 hours. You will likely feel 10 movements in less time than that. Here are tips for counting kicks: ??? Choose a time when the baby is active, such as after a meal.? Sit comfortably or lie on your side.? The first time the baby moves,??write down??the time.? Count each movement until the baby has moved?? 10??times. This can take from 20 minutes to 2??hours.? If you haven't felt 10 kicks by the end of the second hour, wait a few hours. Then try again. ??? Try to do it at the same time each day. ?? When to call your healthcare provider Follow your provider's instructions about when to call about your baby's movements. Don't hesitate to call if you have concerns. Call your healthcare provider?? right away??if: ??? You do a couple sets of kick counts during the day and your baby moves fewer than 10??times in??2??hours. ??? Your baby moves much less often than on the??days before. ??? You haven't felt your baby move all day. ?? Last Reviewed Date: 2022 ?? 5897-6332 [employer]. All rights reserved. This information is not intended as a substitute for professional medical care. Always follow your healthcare professional's instructions. ?? Patient Care team information Care Team Personnel Name: Not on Staff, PCP Position: [facility] Physician (General Medicine) Member Role: PCP Name: Radha Guillaume Position: [facility] OB RN Member Role: Patient Care Provider Care Team Related Persons Name: AMANDEEP MONTOYA
--- OUTSIDE RECORDS SUMMARY | 2024-02-08 09:42 | XMS_ITS | Continuity of Care Document ---
Author Organization [facility] Juan Daniel amatoMilyonired [facility] Address [address] [facility], [address] [place] [address]- Care Team Providers Care Csm Consultant Name Role Phone Not on Staff, PCP Primary Care Physician Unavail able [place] [facility] [place]s): 12/23/22 - 01/22/23 [facility] Juan Danielleyla DuffMilyonis [facility] [address] [facility], [address]th [place] [address]- Attending Physician: Roldan Mc Admitting Physician: Roldan cM Referring Physician: trRoldan Allergies, Adverse Reactions, Alerts No Known Allergies [...]
--- OUTSIDE RECORDS SUMMARY | 2024-02-08 09:42 | XMS_ITS | Continuity of Care Document ---
Author Organization [facility] Address [address] [place] [address]- Care Team Providers Care Glass Bulb Silverer Name Role Phone Not on Staff, PCP Primary Care Physician Unavail able [place] [facility] [place]s): 07/10/23 - [facility]/09/[facility] [address] [address] Allergies, Adverse Reactions, Alerts [...] 07/10/23 13:15:00 EDT, Route to Pharmacy Electronically, [facility]/pharmacy #[id number] Tablet,Partial fill upon patient request if [...] Related Persons Name: AMANDEEP MONTOYA Address: home [address] [place] [address] Name: SINAN TOLBERT Address: Address: [address]
--- OUTSIDE RECORDS SUMMARY | 2024-02-08 09:43 | XMS_ITS | Continuity of Care Document ---
Author Organization [facility] Address [address] [place] [address]- Care Team Providers Care Therapeutic Massage Technician Name Role Phone Not on Staff, PCP Primary Care Physician Unavail able Encounter [facility] Date(s): 10/31/21 - 01/23/[address] [address]- Attending Physician: Tyler ZHAO, Dina Sheriff
--- OUTSIDE RECORDS SUMMARY | 2024-02-08 09:43 | XMS_ITS | Continuity of Care Document ---
Author Organization [facility] Address [address] [place] [address]- Care Team Providers Care Circular Stuffer Name Role Phone Not on Staff, PCP Primary Care Physician Unavail able Encounter [facility] Date(s): 06/12/23 - 07/12/23 [facility] and [address] [address] Attending Physician: Roldan Mc Admitting Physician: AdmRoldan acevedo Referring Physician: Admtr, ArBreanna Allergies, Adverse Reactions, Alerts No Known Allergies Medications Colace sodium 100 mg oral capsule 100 mg, 1, capsule, By Mouth, 2 times a day, PRN, # 60 capsule, Refills 1, Tot. Refills 1, Maintenance, Constipation, 07/10/23 13:15:00 EDT, Route to Pharmacy Electronically, [facility]/pharmacy #[id number], Partial fill upon patient request [...] 1 Refills, Maintenance, 06/09/23 11:52:00 EDT, Ointment, [facility]/pharmacy #[id number], Partial fill upon patient request if the prescription is for a schedule II opioid drug., 1 applicatio... Start Date: 06/09/23 Status: Ordered Senna 8.6 mg oral tablet 1 or 2 tablets, By Mouth, Daily at bedtime, PRN, # 60 tablet, Refills 0, Tot. Refills 0, Maintenance, Constipation, 07/10/23 13:15:00 EDT, Route to Pharmacy Electronically, [facility]/pharmacy #[id number] Tablet,Partial fill upon patient request [...] Related Persons Name: AMANDEEP MONTOYA Address: home [address] [place] [address] Name: TOLBERT, MOMIN Address: Address: [address]
--- OUTSIDE RECORDS SUMMARY | 2024-02-08 09:43 | XMS_ITS | Continuity of Care Document ---
Author Organization [facility] Address [address] [place] [address]- Care Team Providers Care Forestry Biology Specialist Name Role Phone Not on Staff, PCP Primary Care Physician Unavail able En[place] [facility] Date(s): 01/28/23 - 02/27/23 [facility] and [address] [address]- Allergies, Adverse Reactions, Alerts No Known Allergies [...] Problem List Condition Confirmation Course Effective Dates [facility] St atus Informant Mild anemia Confirmed [...]
--- OUTSIDE RECORDS SUMMARY | 2024-02-08 09:43 | XMS_ITS | Continuity of Care Document ---
Author Organization [facility] Juan Daniel Lin [employer] [facility] Address [address] [place] [address]- Care Team Providers Care Kiln Burner Name Role Phone Not on Staff, PCP Primary Care Physician Unavail able [place] [facility] [place] 10/27/22 - 11/03/22 [facility] [place] [facility] [address] [place] [address]- Attending Physician: Jey Rajput MD Referring Physician: Sonali Richardson CNM Allergies, Adverse Reactions, Alerts No Known Allergies Medications amoxicillin 500 mg oral tablet 1 tablet = 500 mg, By Mouth, Every 8 hours, for 5 days, # 15 tablet, 0 Refills, Acute 11/04/22 10:50:00 EST, 10/30/22 10:50:00 EST, [facility]/pharmacy #[id number], Partial fill upon patient request if the prescription is for a schedule II opioid drug., 154, cm, 0... Start Date: 10/30/22 Stop Date: 11/04/22 Status: Ordered PNV 1 tablet, By Mouth, [...] oldest [Reference Range]: 1 Height 154 cm (10/27/22 8:32 AM) Weight 56.36 kg (10/27/22 8:32 AM) Body Mass Index [18.5-24.99 kg/m2] 23.76 kg/m2 (10/27/22 8:32 AM) Blood Pressure [90-138/55-84 mm Hg] 107/ 59mm Hg (10/27/22 8:32 AM) Blood pressure sites Arm, left (10/27/22 8:32 AM) Weight Obtained Via Standing scale (10/27/22 8:32 AM) Social History Social History Type Response Smoking Status Never (less than 100 in lifetime); Exposure to Secondhand Smoke: No entered on: 10/21/22 Sex Note * Donna Nance: PERFORM, SIGN, VERIFY Event Display: Patient Education/Instruction Authored Date: [id number] [facility] *Tara HERNANDEZ CHAIR [employer]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 Future Appointments ?*[facility]NON ?[address],??[place],??[address] ?Phone:??--?Fax:??-- ?Appt. Date:??11/24/2022?11:20 AM ?Scheduled Provider:??Ana Delaney CNM Follow-Up Instructions ?? Diagnosis Encounter for supervision of normal first , unspecified trimester; Other specified health status; Migraine, unspecified, not intractable, without status migrainosus Medications: Please continue your medications until treatment is completed or stopped by your provider. Discuss any questions related to medications with your provider. Medications to Continue with No Changes These medications were not printed or sent to your pharmacy Doxylamine (Unisom 25 mg oral tablet) 1 tab(s) Oral Daily. Next Dose: Multivitamin, (PNV ) 1 tab(s) Oral Daily. Next Dose: Pyridoxine (Vitamin B6) Daily. Next Dose: Allergy Info:?? NKA Medications Given This Visit Future Orders ?No future orders Vital Signs Height 154 cm Weight 56.36 kg BMI 23.76 kg/m2 Blood Pressure 107 mm Hg/59 mm Hg Temperature Pulse Rate Respiratory Rate 02 Sat Mode of Delivery / You can now view a summary of your hospital visit from the comfort of your home through a free online portal called [employer]. [employer] is a website that allows you to securely view your medical information including discharge summary, medications and follow-up visits. ??You can alsosend a secure electronic message to your doctor???s office to request appointments, renew medications or just ask a question. You can enroll at [email or web address] or register during your next office visit. Disclaimer:?? The information provided is of a general nature and is intended to be used in conjunction with the recommendations and advice of your health care practitioner. ??Every effort has been made to ensure that the information provided is accurate and complete at the time it is provided to you however, as your needs change, or, as new ??information becomes available, different or additional instructions may be required. If you have questions, please consult with your primary care provider or pharmacist, as appropriate. ??This information is not intended to serve as substitution for assessment and evaluation by a qualified health care provider. If you do not have a primary care provider, you may find a [facility] provider by calling [facility] Link at [phone]. For information about the plan of care including goals and instructions for your diagnosis, please see the patient education orders section of this document. Patient Education Materials?? The content of this educational material or handout may have been modified, supplemented, or adapted from its original content and format to support your individualized medical care. Please follow instructions discussed with your provider during this visit as well as any education documents you were given today. 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 Future Appointments ?*[facility]NON ?[address],??[place],??[address] ?Phone:??--?Fax:??-- ?Appt. Date:??11/24/2022?11:20 AM ?Scheduled Provider:??Ana Delaney CNM Follow-Up Instructions ?? Diagnosis Encounter for supervision of normal first , unspecified trimester; Other specified health status; Migraine, unspecified, not intractable, without status migrainosus Medications: Please continue your medications until treatment is completed or stopped by your provider. Discuss any questions related to medications with your provider. Medications to Continue with No Changes These medications were not printed or sent to your pharmacy Doxylamine (Unisom 25 mg oral tablet) 1 tab(s) Oral Daily. Next Dose: Multivitamin, (PNV ) 1 tab(s) Oral Daily. Next Dose: Pyridoxine (Vitamin B6) Daily. Next Dose: Allergy Info:?? NKA Medications Given This Visit Future Orders ?No future orders Vital Signs Height 154 cm Weight 56.36 kg BMI 23.76 kg/m2 Blood Pressure 107 mm Hg/59 mm Hg Temperature Pulse Rate Respiratory Rate 02 Sat Mode of Delivery / You can now view a summary of your hospital visit from the comfort of your home through a free online portal called [employer]. [employer]if[employer]Net is a website that allows you to securely view your medical information including discharge summary, medications and follow-up visits. ??You can alsosend a secure electronic message to your doctor???s office to request appointments, renew medications or just ask a question. You can enroll at [email or web address] or register during your next office visit. Disclaimer:?? The information provided is of a general nature and is intended to be used in conjunction with the recommendations and advice of your health care practitioner. ??Every effort has been made to ensure that the information provided is accurate and complete at the time it is provided to you however, as your needs change, or, as new ??information becomes available, different or additional instructions may be required. If you have questions, please consult with your primary care provider or pharmacist, as appropriate. ??This information is not intended to serve as substitution for assessment and evaluation by a qualified health care provider. If you do not have a primary care provider, you may find a [facility] provider by calling [facility] at [phone]. For information about the plan of care including goals and instructions for your diagnosis, please see the patient education orders section of this document. Patient Education Materials?? The content of this educational material or handout may have been modified, supplemented, or adapted from its original content and format to support your individualized medical care. Please follow instructions discussed with your provider during this visit as well as any education documents you were given today. Patient Care team information Care Team Personnel Name: Not on Staff, PCP Position: [facility] Physician (General Medicine) Member Role: PCP Care Team Related Persons Name: AMANDEEP MONTOYA
[2024-02-08 09:48] VITALS: BP 110/60; PULSE 82; O2SAT 98; BMI 28.7
--- NOTE | 2024-02-08 09:48 | A.OFFPC_ITS ---
Vital Signs 02/08/24 09:48 Height 5 ft 2 in Weight 157 lb 2 oz BMI 28.7 BP 110/60 Blood Pressure Location Rt brachial Position Sitting Pulse 82 Pulse Source Pulse Oximeter Pulse Oximetry (%) 98 Oxygen Delivery Method Room Air Intake Visit Reasons: Est care/OK per DR. Gannon~ transfer Dr. Trujillo after Allergies No Known Allergies Allergy (Verified 02/08/24 09:55) Medication List - Last Reconciled 02/08/24 by KAMILA Phipps No Known Home Meds Tobacco use date assessed: 02/08/24 Dental Screening Dental Screen Date: 02/08/24 Did you have a dental visit in the last 12 months?: Yes Did you have a dental problem in the last 6 months where you did not have access to dental care?: No Was dental information given to patient?: Patient has dentist HPI HPI Comments History of Present Illness Details Patient is a 33-year-old female who I am meeting for the 1st time. She has a past medical history significant for intermittent chest palpitations, atypical chest pain, anemia. She recently gave to her 1st child 8 months prior. She has establish care with [facility]. Patient states that she gets intermittent chest palpitation regardless of activity. She feels this is not related to anxiety. Patient had echocardiogram 2 years prior with no abnormal findings. She reports the chest palpitations are sometimes accompanied by chest pain. Will obtain EKG in office today. Will order Holter monitor. Patient reports she is not having chest pain or palpitations at the appointment today. [facility] Medical History (Updated 02/08/24 @ 10:26 by KAMILA Phipps) Anemia Anxiety PCOS (polycystic ovarian syndrome) Family History Maternal Grandfather Colon cancer Social History Household Members: Spouse Housing: House Alcohol intake: never Patient Tobacco Use Status: Never used Tobacco e-Cigarette/Vaping Use: Never Used service: No Current occupational status: unemployed Sexual orientation: Straight/Heterosexual Gender identity: Female Cognitive needs: No Hearing needs: No Vision needs: No Female Reproductive History Menstrual Age of Menarche: 13 Questionnaire PHQ-9 Over the last 2 weeks, how often have you been bothered by any of the following problems? 1. Little interest or pleasure in doing things: several days 2. Feeling down, depressed, or hopeless: several days 3. Trouble falling or staying asleep, or sleeping too much: several days 4. Feeling tired or having little energy: several days 5. Poor appetite or overeating: more than half the days 6. Feeling bad about yourself - or that you are a failure or have let yourself or your family down: several days 7. Trouble concentrating on things, such as reading the newspaper or watching television: several days 8. Moving or speaking so slowly that other people could have noticed. Or the opposite - being so fidgety or restless that you have been moving around a lot more than usual: more than half the days 9. Thoughts that you would be better off or of hurting yourself in some way: not at all Total score: 10 Depression Screening Interpretation: Negative Depression Screening Done: Yes [id number] - PHQ-9 Billing: Yes Source: Developed by Drs. Matthias Linder, Christiana Barba, Dheeraj Mott and colleagues, with an educational jerman from [employer]. Thrive Questionnaire Date Thrive assessed: 02/08/24 I am a: Patient What is your living situation today?: I have a steady place to live Within the past 12 months, did the food you bought not last and you didn't have the money to get more?: Never true Within the past 12 months, did you worry whether your food would run out before you got money to buy more?: Never true Do you have trouble paying for medicines?: No Do you have trouble getting transportation to medical appointments?: No Do you have trouble paying your heating and electricity bill?: No Do you have trouble taking care of your child, family member or friend?: No Do you have trouble with day-to-day activities such as bathing, preparing meals, shopping, managing finances, etc.?: No Are you currently unemployed and looking for a job?: No Are you interested in more education?: Yes Please select the resources that you would like help with: None Currently or been in a relationship where the following occur: no concerns reported THRIVE Score: 0 AUDIT C Alcohol Use Questionnaire (AUDIT-C) 1. How often do you have a drink containing alcohol?: Never 3. How often do you have six or more drinks on one occasion?: Never Total Score: 0 Score Reviewed/Action Taken: Yes KYLAH-7 AMB Questionnaire KYLAH-7 Date KYLAH - 7 assessed: 02/08/24 Feeling nervous, anxious, or on edge: 1 = Several days Not being able to stop or control worryin = Several days Worrying too much about different things: 2 = More than half the days Trouble relaxin = Several days Being so restless that it is hard to sit still: 0 = Not at all Becoming easily annoyed or irritable: 2 = More than half the days Feeling afraid as if something awful might happen: 3 = Nearly every day Total KYLAH-7 score (0-4 normal; 5-9 mild; 10-14 moderate; 15-21 severe): 10 Source: Developed by Drs. Matthias Linder, Christiana Barba, Dheeraj Mott and colleagues, with an educational jerman from [employer]. KYLAH-7 Assessment Billing KYLAH-7 Assessment Tool: KYLAH-7 Assessment 52147 Review of Systems Const Details: Constitutional : No Weight loss, No Fever, No Chills, No Fatigue, No Malaise ENT/Mouth : No sore throat, No Rhinorrhea Eyes: No Eye Pain, No Swelling, No Redness Cardiovascular : No Chest Pain, No SOB, No Dyspnea on Exertion, No Orthopnea, No Edema, Admits intermittent Palpitations Respiratory : No Cough, No Sputum, No Wheezing Gastrointestinal : No Nausea, No Vomiting, No Diarrhea, No Constipation, No abdominal Pain, No Hematochezia, No Melena Genitourinary : No Dysuria, No Urinary Frequency, No Hematuria, Musculoskeletal : No joint pain, No Myalgias, No Joint Swelling Skin : No Skin Lesions, No rash Neuro : No Weakness, No Numbness, No Dizziness, No Headache Psych : No Anxiety/Panic, No Depression Heme/Lymph: No Bruising, No Bleeding,No Lymphadenopathy Endocrine : No Polyuria, No Polydipsia All other systems reviewed and are negative Physical exam (Primary Care) Vital Signs: Last Vital Signs Pulse 82 02/08/24 09:48 BP 110/60 02/08/24 09:48 Pulse Ox 98 02/08/24 09:48 Oxygen Delivery Method Room Air 02/08/24 09:48 Care Plan Goal for BP management: blood pressure controlled. BMI result Body Mass Index 28.7 Tobacco/Smoking Status: Tobacco use Status Tobacco use date assessed 02/08/24 02/08/24 09:52 Patient Tobacco Use Status Never used Tobacco 02/08/24 09:52 e-Cigarette/Vaping Use Never Used 02/08/24 09:52 Depression Screening Interpretation: Negative Currently or been in a relationship where the following occur: no concerns reported Const Other: Appearance: Alert.? Oriented X3.? No acute distress.? Head: Normocephali Neck: Normal inspection.? Neck supple.? CVS: Normal heart rate and rhythm.? Pulses normal.? Respiratory: No respiratory distress.? Breath sounds normal.? Abdomen: Soft and nontender.? Skin: Skin warm and dry.? Normal skin color.? Normal skin turgor.? Extremities: No lower extremity edema.? No calf ttp. 5/5 strength to bilateral upper and lower extremities Back: No midline tenderness, no C-spine tenderness, Limited range of motion to flexion, no CVA tenderness bilaterally Neuro: Oriented X 3.? No motor deficit.? No sensory deficit. CN 2-12 intact Office Procedures EKG 72071-[id number], Complete Assessment and Plan Assessment & Plan (1) Lumbar pain: Comment: Will order lumbar x-ray. Will refer to physical therapy. Code(s): M54.50 - Low back pain, unspecified (2) Intermittent palpitations: Comment: Will have in office EKG. Will also order 3 day Holter monitor. Patient has been educated on signs of worsening symptoms and when to report the office or when to present to the ED. will order labs. Code(s): R00.2 - Palpitations Plan: Take your medications as prescribed. If you were prescribed antibiotics today, it is important that you take your medication to their entirety, do not skip any doses, do not finish them early. Present to the emergency department with new or worsening symptoms. Such as fevers, chills, chest pain, shortness of breath, nausea, vomiting, dizziness, headache, vision changes, lethargy In case of emergency call 911 Plan Follow up for PE. Orders: Orders Comprehensive Met. Panel Today Z91.89 - Other specified personal risk factors, not elsewhere classified Vitamin D 25-OH (D2 and D3) Today Z13.21 - Encounter for screening for nutritional disorder Vitamin B6 Today Z13.21 - Encounter for screening for nutritional disorder UA CC w/rflx Micro + Cult Today Z13.89 - Encounter for screening for other disorder TSH reflex Free T4 Today Z13.29 - Encounter for screening for other suspected endocrine disorder Lipid Panel Today Z13.220 - Encounter for screening for lipoid disorders XR lumbar spine 2-3V Today M54.50 - Low back pain, unspecified ECG 3 day holter monitor Today R00.2 - Palpitations Complete Blood Count Auto Diff Today Z13.0 - Encounter for screening for diseases of the blood and blood-forming organs and certain disorders involving the immune mechanism Vitamin B12 Today Z13.21 - Encounter for screening for nutritional disorder AMB EKG-In Office Today Z13.6 - Encounter for screening for cardiovascular disorders MADISON Reflex Titer and Pattern Today M79.89 - Other specified soft tissue disorders PT Evaluation and Treatment Today M54.50 - Low back pain, unspecified Coding Level of Care Code Est Pt Level 3 (35993) Diagnoses Lumbar pain M54.50 Intermittent palpitations R00.2 CPT Codes EKG - CPT: 53431-[id number], Complete ([id number]) Additional Codes KYLAH-7 Assessment Billing - KYLAH-7 Assessment Tool: KYLAH-7 Assessment 70425 ([id number]) Time Spent (min) 28
== END 2024-02-08 10:19 | disposition home or self-care (01) ==
LOC: HO.HMGC 09:39
PROVIDERS: PCP Nurse Practitioner Family; Visit Provider Nurse Practitioner Primary Care
DX: R00.2 Palpitations (principal)
CPT/HCPCS: 93000; 99213

== ENCOUNTER 2024-02-08 10:22 | Outpatient (REF) | payer OTHER, SELFPAY ==
--- NOTE | ~2024-02-08 | XR_ITS ---
EXAMINATION: XR LUMBOSACRAL SPINE CLINICAL INFORMATION: Low back pain. COMPARISON: None available. TECHNIQUE: Three views of the lumbosacral spine. FINDINGS: Facet arthritis in the lower lumbar spine with mild spondylosis. Lumbar disc space heights are preserved. Minimal rightward curvature of the yxv-ln-cxrht lumbar spine. There appears to be transitional anatomy. XR/XR lumbar spine 2-3V IMPRESSION: Facet arthritis in the lower lumbar spine with mild spondylosis most notable at the lumbosacral junction.
[2024-02-08 13:27] LABS: MANUAL DIFF FLAG NO
[2024-02-08 13:52] LABS: Basophils Percent Auto 0.7 % (0-2); Eosinophils Absolute Auto 0.3 X10*3/uL (0.0-0.4); Eosinophils Percent Auto 4.6 % (0-4); Hematocrit 36.6 % (37.0-47.0); Hemoglobin 11.7 g/dl (12.0-16.0); Imm Gran Abs Auto 0.01 X10*3/uL (0.00-0.03); Imm Gran Pct Auto 0.2 % (0.0-0.4); Lymphocytes Absolute Auto 2.6 X10*3/uL (1.2-4.9); Lymphocytes Percent Auto 43.2 % (20-40); Mean Corpuscular Hemoglobin 27.4 pg (27.0-33.0); Mean Corpuscular Volume 85.7 fL (80.0-98.0); Mean Platelet Volume 9.4 fL (9.4-12.3); Monocytes Absolute Auto 0.3 X10*3/uL (0.1-1.2); Monocytes Percent Auto 4.9 % (2-11); Neutrophils Absolute Auto 2.8 x10*3/uL (2.0-8.3); Neutrophils Percent Auto 46.4 % (45-73); Platelet Count 365 X10*3/uL (160-400); Red Blood Count 4.27 X10*6/uL (4.20-5.50); Red Cell Distribution Width 13.9 % (11.0-16.0); White Blood Count 5.9 X10*3/uL (4.8-10.8)
[2024-02-08 14:06] LABS: Alanine Aminotransferase 15 U/L (0-31); Albumin Level 4.2 g/dL (3.5-5.0); Alkaline Phosphatase 61 U/L (39-117); Anion Gap 16 (12-20); Aspartate Amino Transferase 18 U/L (5-31); Bilirubin Total 0.3 mg/dL (0.0-1.0); Blood Urea Nitrogen 15 mg/dL (9-16); Calcium 9.3 mg/dL (8.4-10.2); Carbon Dioxide 24 mmol/L (22-29); Chloride 105 mmol/L (96-108); Cholesterol 162 mg/dL (<200); Estimated Glomerular Filt Rate > 60; Glucose Random 78 mg/dL (60-115); HDL Cholesterol 45 mg/dL (>40); LDL Cholesterol Calculated 107 mg/dL (<100); Sodium 141 mmol/L (135-145); Total Protein 7.2 g/dL (6.5-8.0); Triglycerides 53 mg/dL (<150)
[2024-02-08 14:09] LABS: Appearance Urine Clear; Color Urine Yellow; Glucose Urine UA Negative (Negative); Leukocyte Esterase Urine Negative (Negative); Nitrite Urine Negative (Negative); PH 5.5 (5.0-9.0); Specific Gravity - Urine <= 1.005 (1.005-1.025); Urine Blood Negative (Negative); Urine Ketones Negative (Negative); Urine Protein Negative (Neg-Trace)
[2024-02-08 14:23] LABS: Vitamin B12 238 pg/mL (200-900)
[2024-02-11 12:48] LABS: Anti Nuclear Antibody Screen NEGATIVE (NEGATIVE)
[2024-02-12 14:34] LABS: Vitamin D 25-OH, D2 <4 ng/mL; Vitamin D 25-OH, D3 13 ng/mL; Vitamin D 25-OH, Total 13 ng/mL (30-100)
[2024-02-18 15:39] LABS: Vitamin B6 12.5 ng/mL (2.1-21.7)
== END 2024-02-08 10:23 | disposition home or self-care (01) ==
LOC: HO.HMGCX 10:22
PROVIDERS: PCP Internal Medicine; Visit Provider Nurse Practitioner Primary Care
DX: M54.50 Low back pain, unspecified (principal); Z91.89 Other specified personal risk factors, not elsewhere classified; Z13.29 Encounter for screening for other suspected endocrine disorder; Z13.220 Encounter for screening for lipoid disorders; M79.89 Other specified soft tissue disorders; Z13.21 Encounter for screening for nutritional disorder; Z13.89 Encounter for screening for other disorder; Z13.0 Encounter for screening for diseases of the blood and blood-forming organs and certain disorders involving the immune mechanism
CPT/HCPCS: 36415; 72100; 80053; 80061; 81003; 82306; 82607; 84207; 84443; 85025; 86038

== ENCOUNTER → 2024-02-15 10:44 | Outpatient (REF) | payer OTHER, SELFPAY ==
--- NOTE | 2024-02-15 10:48 | HM_ITS ---
* Total monitoring time 3 days. * Underlying rhythm is sinus with an average rate of 83/Min. About 16% of the time, rate > 100/Min. * No significant supraventricular or ventricular ectopy. * No sustained arrhythmias. * No significant pauses or AV blocks. * Patient markers used twice in association with sinus rhythm. * Sharp pain in patient diary associated with sinus rhythm. Palpitations/skipping associated with mild sinus tachycardia. MTDD
== END ==
LOC: HO.CARD 10:44
PROVIDERS: PCP Internal Medicine; Visit Provider Nurse Practitioner Primary Care
DX: R00.2 Palpitations (principal)
CPT/HCPCS: 93242

== ENCOUNTER → 2024-02-15 10:48 | Outpatient (BNV) | payer OTHER, SELFPAY | PROVIDERS: PCP Internal Medicine; Visit Provider Internal Medicine | DX: R00.0 Tachycardia, unspecified (principal) | CPT/HCPCS: 93244 ==

== ENCOUNTER 2024-03-03 13:15 | Outpatient (AMB) | payer OTHER, SELFPAY ==
[2024-03-03 13:46] VITALS: BP 118/80; PULSE 80; TEMP 36.7; O2SAT 99; BMI 27.8
--- NOTE | 2024-03-03 13:46 | MHC.OFFWIV ---
Intake Vital Signs 03/03/24 13:46 Height 5 ft 2 in Weight 152 lb 2 oz BMI 27.8 BP 118/80 Blood Pressure Location Lt brachial Position Sitting Pulse 80 Pulse Source Pulse Oximeter Temp 98.1 F Temp Source Oral Pulse Oximetry (%) 99 Oxygen Delivery Method Room Air Intake Visit Reasons: swollen right knee all the way down to ankle Intake Note: pt is here today for rt knee all the way down to ankle been ongoing for 3 Wks. Patient Tobacco Use Status: Never used Tobacco Allergies No Known Allergies Allergy (Verified 03/03/24 14:40) Do you need a note to return to daycare/school/sports/work: No HPI HPI Comments History of Present Illness Details 33 y/o female patient who presents to walk in clinic with c/o right knee swelling and pain x 3 weeks. Denies injury or trauma. ON LICENSE OF [facility] Medical History (Updated 02/08/24 @ 10:26 by KAMILA Phipps) Anemia Anxiety PCOS (polycystic ovarian syndrome) Family History Maternal Grandfather Colon cancer Social History Household Members: Spouse Housing: House Alcohol intake: never Patient Tobacco Use Status: Never used Tobacco e-Cigarette/Vaping Use: Never Used service: No Current occupational status: unemployed Sexual orientation: Straight/Heterosexual Gender identity: Female Cognitive needs: No Hearing needs: No Vision needs: No Female Reproductive History Menstrual Age of Menarche: 13 Review of Systems Const All systems reviewed & are unremarkable except as noted in HPI and below Physical Exam Vital Signs: Last Vital Signs Temp 98.1 F 03/03/24 13:46 Pulse 80 03/03/24 13:46 BP 118/80 03/03/24 13:46 Pulse Ox 99 03/03/24 13:46 Oxygen Delivery Method Room Air 03/03/24 13:46 BMI result Body Mass Index 27.8 Const General: comfortable and no acute distress Nutritional Appearance: obese Orientation/consciousness: patient oriented x3 Neuro General: patient oriented x3, gait normal and moves all extremities Extrem Right lower extremity: normal to inspection, full ROM and knee Details: normal to inspection, tenderness and normal ROM; no swelling, no abrasions, no lacerations, no ecchymosis, no crepitus, no deformity and no unusual warmth Left lower extremity: normal to inspection, full ROM and knee Details: normal to inspection and abnormal to inspection Psych Speech and movement: Normal speech and movement present Assessment & Plan Assessment & Plan (1) Right knee pain: Code(s): M25.561 - Pain in right knee Qualifiers: Chronicity: acute Qualified Code(s): M25.561 - Pain in right knee Plan: - Ordered Xray - ordered PT of knee - Ibuprofen for pain relief - Knee Brace. (2) Contusion of right patella: Code(s): S80.01XA - Contusion of right knee, initial encounter Qualifiers: Encounter type: initial encounter Qualified Code(s): S80.01XA - Contusion of right knee, initial encounter Plan: - Ordered Xray - ordered PT of knee - Ibuprofen for pain relief - Knee Brace. Orders: Orders PT Evaluation and Treatment Today M25.561 - Pain in right knee, S80.01XA - Contusion of right knee, initial encounter Coding Level of Care Code Est Pt Level 4 (58551) Diagnoses Acute pain of right knee M25.561 Chronicity: acute Contusion of right patella, initial encounter S80.01XA Encounter type: initial encounter Time Spent (min) 20
--- OUTSIDE RECORDS SUMMARY | 2024-03-04 11:17 | XMS_ITS | Continuity of Care Document ---
Author Organization [facility] Address [address] [place] [id number] Care Team Providers Care Credit Control Clerk Name Role Phone Not on Staff, PCP Primary Care Physician Unavail able Encounter [facility] [place] Date(s): 01/26/24 - 02/25/[address] [address] Attending Physician: Roldan Mc Admitting Physician: AdmtrRoldan Referring Physician: Admtr, Roldan Allergies, Adverse Reactions, Alerts No Known Allergies Medications Colace sodium 100 mg oral capsule 100 mg, 1, capsule, By Mouth, 2 times a day, PRN, # 60 capsule, Refills 1, Tot. Refills 1, Maintenance, Constipation, 07/10/23 13:15:00 EDT, Route to Pharmacy Electronically, [facility]/pharmacy #[id number], Partial fill [...] 0 Refills, Maintenance, 08/18/23 16:26:00 EST, Ointment, [id number], Partial fill upon patient request if the prescription is for a schedule II opioid drug., 1 application Rectal... Start Date: 08/18/23 Status: Ordered Senna 8.6 mg oral tablet 1 or 2 tablets, By Mouth, Daily at bedtime, PRN, # 60 tablet, Refills 0, Tot. Refills 0, Maintenance, Constipation, 07/10/23 13:15:00 EDT, Route to Pharmacy Electronically, [facility]/pharmacy #[id number] Tablet,Partial fill upon patient request [...] Related Persons Name: AMANDEEP MONTOYA Address: home [address] [place] [address] Name: DIDI SINAN Address: Address: [address]
== END 2024-03-03 17:01 | disposition home or self-care (01) ==
PROVIDERS: PCP Internal Medicine; Visit Provider Nurse Practitioner Family
DX: M25.561 Pain in right knee (principal); S80.01XA Contusion of right knee, initial encounter
CPT/HCPCS: 99214

== ENCOUNTER 2024-03-03 15:03 | Outpatient (REF) | payer OTHER, SELFPAY ==
--- NOTE | ~2024-03-03 | XR_ITS ---
EXAMINATION: XR KNEE, RIGHT CLINICAL INFORMATION: Pain in right knee COMPARISON: None available. TECHNIQUE: Four views of the right knee. FINDINGS: No fracture. Moderate-sized joint effusion. Alignment is anatomic. Joint spaces are maintained. Small marginal osteophyte involves the medial proximal tibia. 0.4 cm nonspecific subchondral cyst is seen in the proximal medial tibia. No abnormal soft tissue calcification. XR/XR knee RT 4V IMPRESSION: 1. No acute bony abnormality. 2. Moderate-sized joint effusion.
== END 2024-03-03 15:04 | disposition home or self-care (01) ==
LOC: HO.HMGCX 15:03
PROVIDERS: PCP Internal Medicine; Visit Provider Nurse Practitioner Family
DX: M25.561 Pain in right knee (principal)
CPT/HCPCS: 73564

== ENCOUNTER 2024-03-21 09:16 | Outpatient (AMB) | payer OTHER, SELFPAY ==
--- NOTE | 2024-03-21 09:30 | A.OFFPC_ITS ---
Vital Signs 03/21/24 09:34 Height 5 ft 2 in Weight 148 lb BMI 27.1 BP 100/70 Blood Pressure Location Rt brachial Position Sitting Pulse 62 Pulse Source Pulse Oximeter Pulse Oximetry (%) 97 Oxygen Delivery Method Room Air Intake Visit Reasons: 1 month follow up Intake Note: * Pt is here today for her 1 month f/u after seeing Ronal for imtermittent palpatations/ also c/o Rt knee pain no injury noted Allergies No Known Allergies Allergy (Verified 05/03/24 15:05) Medication List - Last Reconciled 03/21/24 by Tonia Gannon MD cholecalciferol (vitamin D3) 50 mcg PO DAILY Tobacco use date assessed: 03/21/24 Dental Screening Dental Screen Date: 03/21/24 Did you have a dental visit in the last 12 months?: Yes Did you have a dental problem in the last 6 months where you did not have access to dental care?: Yes Was dental information given to patient?: Patient has dentist HPI 1 month follow up HPI Details 33-year-old lady here today for follow-u p. Patient is experiencing intermittent episodes of palpitations, but denies any accompanying chest pain. Three day Holter monitor showed underlying rhythm is sinus with an average rate of 83/Min. About 16% of the time, rate > 100/Min. * No significant supraventricular or ventricular ectopy. * No sustained arrhythmias. * No significant pauses or AV blocks. She has mild normocytic anemia Reports having frequent episodes of anxiety and low mood, ever since she gave . But does not want to start any medications at present as she is . Still having pain in her right knee, with x-ray left knee joint showing no fracture. Moderate-sized joint effusion. Alignment is anatomic.Joint spaces are maintained. Small marginal osteophyte involves the medial proximal tibia. 0.4 cm nonspecific subchondral cyst is seen in the proximal medial tibia. No abnormal soft tissue calcification. Has been taking Tylenol which has not afforded much pain relief [facility] Medical History Right leg swelling Normocytic normochromic anemia Anxiety and depression Vitamin D deficiency Anemia Anxiety PCOS (polycystic ovarian syndrome) Family History Maternal Grandfather Colon cancer Social History Household Members: Spouse Housing: House Alcohol intake: never Patient Tobacco Use Status: Never used Tobacco e-Cigarette/Vaping Use: Never Used service: No Current occupational status: unemployed Sexual orientation: Straight/Heterosexual Gender identity: Female Cognitive needs: No Hearing needs: No Vision needs: No Female Reproductive History Menstrual Age of Menarche: 13 Questionnaire PHQ-9 Over the last 2 weeks, how often have you been bothered by any of the following problems? 1. Little interest or pleasure in doing things: several days 2. Feeling down, depressed, or hopeless: several days 3. Trouble falling or staying asleep, or sleeping too much: several days 4. Feeling tired or having little energy: nearly every day 5. Poor appetite or overeating: not at all 6. Feeling bad about yourself - or that you are a failure or have let yourself or your family down: not at all 7. Trouble concentrating on things, such as reading the newspaper or watching television: several days 8. Moving or speaking so slowly that other people could have noticed. Or the opposite - being so fidgety or restless that you have been moving around a lot more than usual: not at all 9. Thoughts that you would be better off or of hurting yourself in some way: not at all Total score: 7 Depression Screening Interpretation: Positive (Declines taking any medication at present time, currently referred mental health coordinator) Depression Screening Follow-up: Community Mental Health Worker F/U Depression Screening Done: Yes 32388 - PHQ-9 Billing: Yes Source: Developed by Drs. Matthias Linder, Christiana Barba, Dheeraj Mott and colleagues, with an educational jerman from [employer]. Thrive Questionnaire Date Thrive assessed: 02/08/24 KYLAH-7 AMB Questionnaire KYLAH-7 Date KYLAH - 7 assessed: 02/08/24 Feeling nervous, anxious, or on edge: 1 = Several days Not being able to stop or control worryin = Several days Worrying too much about different things: 2 = More than half the days Trouble relaxin = Several days Being so restless that it is hard to sit still: 0 = Not at all Becoming easily annoyed or irritable: 2 = More than half the days Feeling afraid as if something awful might happen: 3 = Nearly every day Total KYLAH-7 score (0-4 normal; 5-9 mild; 10-14 moderate; 15-21 severe): 10 Source: Developed by Drs. Matthias Linder, Christiana Barba, Dheeraj Mott and colleagues, with an educational jerman from [employer]. KYLAH-7 Assessment Billing KYLAH-7 Assessment Tool: KYLAH-7 Assessment 67172 Review of Systems Const Denies body aches, Denies fever(s), Denies headache(s) and Denies weakness ENT Denies dizziness, Denies headache(s) and Denies nasal congestion Card Denies chest pain, Denies lightheadedness and Denies dyspnea Resp Denies chest congestion, Denies cough, Denies dyspnea and Denies wheezing GI Denies abdominal pain, Denies change in bowel habits and Denies heartburn Denies hematuria, Denies urinary frequency, Denies dysuria and Denies urinary urgency Musc Reports as per HPI, Denies muscle cramps and Denies muscle weakness Skin/Breast Details: Still occasionally Denies breast pain, Denies breast mass, Denies rash and Denies sores Neuro Denies dizziness, Denies headache(s) and Denies weakness Endo Denies polydipsia and Denies polyuria Raciel/Lymph Denies easy bruising Aller/Immun Denies seasonal rhinorrhea and Denies wheezing Physical exam (Primary Care) Vital Signs: Last Vital Signs Pulse 62 03/21/24 09:34 BP 100/70 03/21/24 09:34 Pulse Ox 97 03/21/24 09:34 Oxygen Delivery Method Room Air 03/21/24 09:34 BMI result Body Mass Index 27.1 Tobacco/Smoking Status: Tobacco use Status Tobacco use date assessed 03/21/24 03/21/24 09:34 Patient Tobacco Use Status Never used Tobacco 03/21/24 09:31 e-Cigarette/Vaping Use Never Used 03/21/24 09:31 PHQ-9: PHQ-9 Score PHQ-9: Total score 7 03/21/24 10:09 Depression Screening Interpretation: Positive (Declines taking any medication at present time, currently referred mental health coordinator) Depression Screening Follow-up: Community Mental Health Worker F/U Thrive Assessment: Date of Thrive Assessment Date Thrive assessed 02/08/24 03/21/24 09:31 Const General: healthy appearing, comfortable and no acute distress Nutritional Appearance: average body habitus Orientation/consciousness: patient oriented x3 [facility] General nose exam: Normal external nose present Face and sinus: Yes face symmetric Neck Neck: Yes no lymphadenopathy and Yes supple Thyroid: Thyroid normal Resp Effort & Inspection: normal respiratory effort Auscultation: clear to auscultation bilaterally, no crackles, no rales and no rhonchi Cardio Palpation: normal PMI Rate: regular rate Rhythm: regular rhythm Heart sounds: S1 normal heart sound present and S2 normal heart sound present GI Palpation (GI): Soft to palpation, nontender, no guarding and no masses Skin General skin exam: no rashes or lesions noted Neuro General: patient oriented x3, gait normal, tone normal, moves all extremities, Normal light touch and pain sensation and no focal motor deficits Extrem Other: Slight swelling in right lower extremity, no calf tenderness, no varicose veins noted, normal range of motion of knee joints and ankle joints bilateral Results Reviewed Results Reviewed: radha: Sandra Duff Age/Sex: 33/F : 1990 Unit#: [id number] Attend Dr: Ronal Garcia Re02/08/24 Status: DEP REF Location: [facility] Disch: SPEC : [id number] MELODY: 02/08/24-0 STATUS: COMP REQ : [id number] RECD: 02/08/24-[address]: Ronal Garcia COMP: 02/08/24-1423 ENTERED: 02/08/24-[address]: Tonia Gannon MD ORDERED: CMP, Lipid Panel, TSH Rflx Test Result Flag Reference Sodium 141 135-145 mmol/L Potassium 4.0 3.3-5.1 mmol/L CL 105 96-108 mmol/L CO2 24 22-29 mmol/L Gap 16 12-20 BUN 15 9-16 mg/dL Creat 0.67 0.5-1.4 mg/dL EGFR > 60 NOTE: For -[place] individuals, multiply the result by 1.210. Chronic Kidney Disease: Estimated GFR < 60 mL/min/1.73m2 Severe Kidney Disease: Estimated GFR < 15 mL/min/1.73m2 Glucose, Random 78 60-115 mg/dL CA 9.3 8.4-10.2 mg/dL Total Bili 0.3 0.0-1.0 mg/dL AST (GOT) 18 5-31 U/L ALT (GPT) 15 0-31 U/L Protein, Total 7.2 6.5-8.0 g/dL Alb 4.2 3.5-5.0 g/dL Triglyceride 53 <150 mg/dL Desirable Triglyceride: less than 150 mg/dL Borderline High Triglyceride 150-199 mg/dL High Triglyceride: 200-499 mg/dL Very High Triglyceride: greater than or equal to 5OO mg/dL Cholesterol 162 <200 mg/dL Desirable Cholesterol: less than 200 mg/dL Borderline High Cholesterol: 200-239 mg/dL High Cholesterol: greater than 239 mg/dL LDL Calculated 107 H <100 mg/dL Desirable LDL: less than 100 mg/dL Near Optimal/Above Optimal LDL: 110-129 mg/dL Borderline High LDL: 130-159 mg/dL High LDL: 160-189 mg/dL Very High LDL: greater than or equal to 190 mg/dL HDL 45 >40 mg/dL Desirable HDL: greater than 40 mg/dL Note: This HDL assay may give artificially low results in patients with liver disease. Alk Phos 61 39-117 U/L TSH 1.40 0.32-4.0 uIU/mL Name: Sandra Duff Age/Sex: 33/F : 1990 Unit#: [id number] Attend Dr: Ronal GarciaP Re02/08/24 Status: DEP REF Location: [facility] Disch: SPEC : [id number] MELODY: 02/08/24 STATUS: COMP REQ : [id number] RECD: 02/08/[address]: Ronal Garcia DENTAL ASSOCIATE COMP: 02/08/24 ENTERED: 02/08/[address]: Tonia Gannon MD ORDERED: CBC Auto Diff Test Result Flag Reference WBC 5.9 4.8-10.8 X10*3/uL RBC 4.27 4.20-5.50 X10*6/uL HGB 11.7 L 12.0-16.0 g/dl HCT 36.6 L 37.0-47.0 % MCV 85.7 80.0-98.0 fL MCH 27.4 27.0-33.0 pg MCHC 32.0 31.0-35.0 g/dl RDW 13.9 11.0-16.0 % PLT 365 160-400 X10*3/uL MPV 9.4 9.4-12.3 fL Neut Pct Auto 46.4 45-73 % ImGran Pct Auto 0.2 0.0-0.4 % Lymp Pct Auto 43.2 H 20-40 % [place] Pct Auto 4.9 2-11 % Eos Pct Auto 4.6 H 0-4 % Baso Pct Auto 0.7 0-2 % NRBC Pct Auto 0.0 0.0-0.2 /100WBC ANC Neut Abs # 2.8 2.0-8.3 x10*3/uL ImGran Abs Auto 0.01 0.00-0.03 X10*3/uL Lymph Abs Auto 2.6 1.2-4.9 X10*3/uL [place] Abs Auto 0.3 0.1-1.2 X10*3/uL Eos Abs Auto 0.3 0.0-0.4 X10*3/uL Baso Abs Auto 0.0 0.0-0.2 X10*3/uL NRBC Abs Auto 0.000 0.0-0.012 X10*3/uL Date of Service: 02/15/24 Procedure(s): ECG 3 day holter monitor Accession Number(s): cc: Ronal Garcia~ * Total monitoring time 3 days. * Underlying rhythm is sinus with an average rate of 83/Min. About 16% of the t janette, rate > 100/Min. * No significant supraventricular or ventricular ectopy. * No sustained arrhythmias. * No significant pauses or AV blocks. * Patient markers used twice in association with sinus rhythm. * Sharp pain in patient diary associated with sinus rhythm. Palpitations/skipping associated with mild sinus tachycardia. * * X-ray right knee 03/03/2024 showed No fracture. Moderate-sized joint effusion. Alignment is anatomic. Joint spaces are maintained. Small marginal osteophyte involves the medial proximal tibia. 0.4 cm nonspecific subchondral cyst is seen in the proximal medial tibia. No abnormal soft tissue calcification. Assessment and Plan Assessment & Plan (1) Right anterior knee pain: Code(s): M25.561 - Pain in right knee Plan: No relief with Tylenol or application of ice or heat to affected joint. Reviewed x-ray results of right knee with patient, referred to orthopedics for further evaluation manage (2) Subchondral bone cyst: Code(s): M85.60 - Other cyst of bone, unspecified site Plan: Orthopedics consult ordered (3) Vitamin D deficiency: Code(s): E55.9 - Vitamin D deficiency, unspecified Plan: Low vitamin-D level on recent labs done. Increase vitamin-D 3 supplements to 4000 units daily recheck again levels in 3 month (4) Anxiety and depression: Code(s): F41.9 - Anxiety disorder, unspecified; F32.A - Depression, unspecified Plan: Patient states that anxiety is worse after giving accompanied by depressed mood, does not want to start any medications at present time, currently . Referred to Amna gurrola mental health coordinator for assistance in getting in to be seen for therapy (5) Normocytic normochromic anemia: Code(s): D64.9 - Anemia, unspecified Plan: Advised to eat foods rich in iron, hi green leafy vegetables, lean meat, grains Orders: Referrals Orthopedics Referral M25.561 - Pain in right knee, M85.60 - Other cyst of bone, unspecified site Coding Level of Care Code Est Pt Level 4 (29036) Diagnoses Right anterior knee pain M25.561 Subchondral bone cyst M85.60 Vitamin D deficiency E55.9 Anxiety and depression F41.9; F32.A Normocytic normochromic anemia D64.9 Additional Codes KYLAH-7 Assessment Billing - KYLAH-7 Assessment Tool: KYLAH-7 Assessment 45878 ([id number])
[2024-03-21 09:34] VITALS: BP 100/70; PULSE 62; O2SAT 97; BMI 27.1
== END 2024-03-21 10:28 | disposition home or self-care (01) ==
PROVIDERS: PCP Nurse Practitioner Family; Visit Provider Internal Medicine
DX: M25.561 Pain in right knee (principal); M85.60 Other cyst of bone, unspecified site; E55.9 Vitamin D deficiency, unspecified; F41.9 Anxiety disorder, unspecified; F32.A Depression, unspecified; D64.9 Anemia, unspecified
CPT/HCPCS: 96127; 99214

== ENCOUNTER 2024-04-20 11:00 | Outpatient (RCR) | payer OTHER, SELFPAY | END 2024-05-24 14:44 | disposition home or self-care (01) | LOC: HO.PT 11:00 | PROVIDERS: PCP Internal Medicine; Visit Provider Nurse Practitioner Primary Care | DX: M54.50 Low back pain, unspecified (principal) | CPT/HCPCS: 97110; 97112; 97162 ==

== ENCOUNTER 2024-04-25 11:29 | Outpatient (REF) | payer OTHER, SELFPAY | END 2024-04-25 11:30 | disposition home or self-care (01) | LOC: HO.HOSX 11:29 | PROVIDERS: Visit Provider Physician Assistant | DX: Z13.89 Encounter for screening for other disorder (principal) ==

== ENCOUNTER 2024-04-26 12:27 | Outpatient (REF) | payer OTHER, SELFPAY ==
--- NOTE | ~2024-04-26 | XR_ITS ---
EXAMINATION: XR KNEE, LEFT XR KNEE, RIGHT CLINICAL INFORMATION: Bilateral knee pain. COMPARISON: 03/03/2024 TECHNIQUE: Standing AP view of both knees and a sunrise view of the right knee. FINDINGS: Right knee joint appears relatively well-preserved without marginal osteophytes. No fracture or malalignment. Bone mineralization is normal. The left knee joint is normal in appearance on the single AP view. Bone mineralization is normal. Soft tissues are unremarkable. XR/XR knee RT 1V IMPRESSION: Normal radiographs of the knees.
--- NOTE | ~2024-04-26 | XR_ITS ---
EXAMINATION: XR KNEE, LEFT XR KNEE, RIGHT CLINICAL INFORMATION: Bilateral knee pain. COMPARISON: 03/03/2024 TECHNIQUE: Standing AP view of both knees and a sunrise view of the right knee. FINDINGS: Right knee joint appears relatively well-preserved without marginal osteophytes. No fracture or malalignment. Bone mineralization is normal. The left knee joint is normal in appearance on the single AP view. Bone mineralization is normal. Soft tissues are unremarkable. XR/XR knee LT 2V IMPRESSION: Normal radiographs of the knees.
== END 2024-04-26 12:28 | disposition home or self-care (01) ==
LOC: HO.HOSX 12:27
PROVIDERS: PCP Internal Medicine; Visit Provider Physician Assistant
DX: M22.2X1 Patellofemoral disorders, right knee (principal); M25.562 Pain in left knee
CPT/HCPCS: 73560; 99202

== ENCOUNTER 2024-04-26 12:27 | Outpatient (AMB) | payer OTHER, SELFPAY ==
--- NOTE | 2024-04-26 12:28 | A.OFFVIS_ITS ---
Vital Signs 04/26/24 12:35 Height 5 ft 2 in Weight 154 lb BMI 28.2 Intake Visit Reasons: [employer]PER[employer] [facility]-RT knee pain Intake Note: Sandra is a 34 year old female who presents today as a new patient for a evaluation of her right knee pain. No hx of injury. Patient reports ongoing pain for a couple months. She states that her pain is all around her knee and it sometimes moves down to her harrison and behind her knee. Pain is worse when lifting her knee and going up the stairs. Patient has tried and failed 3 + months of icing and taking NSAIDs. Allergies No Known Allergies Allergy (Verified 04/26/24 12:34) HPI HPI [employer]-RT knee pain: Details: 33-year-old female who presents in the office today, as a new patient, for an evaluation of right knee pain. The patient [facility]24 with a complaint of right knee edema and pain for three weeks. X-rays were obtained. She was referred to physical therapy, encouraged to take ibuprofen for pain, and was supplied with a knee brace. ? ? While in the office today, the patient reports ongoing pain for a ?couple? of months. She states her pain is located around the knee and radiates down to her harrison and behind the knee occasionally. She claims to have an increase in pain when lifting her right knee and when going up the stairs. She denies any known injury to the right knee. She confirmed the use of ice and NSAIDs for more than three months with no relief. ? [facility] Medical History (Updated 04/26/24 @ 13:21 by Kellee Stacy) Normocytic normochromic anemia Anxiety and depression Vitamin D deficiency Anemia Anxiety PCOS (polycystic ovarian syndrome) Family History Maternal Grandfather Colon cancer Social History Household Members: Spouse Housing: House Alcohol intake: never Patient Tobacco Use Status: Never used Tobacco e-Cigarette/Vaping Use: Never Used service: No Current occupational status: unemployed Sexual orientation: Straight/Heterosexual Gender identity: Female Cognitive needs: No Hearing needs: No Vision needs: No Female Reproductive History Menstrual Age of Menarche: 13 Review of Systems Const All systems reviewed & are unremarkable except as noted in HPI and below Physical Exam Vital Signs: BMI result Body Mass Index 28.2 Const General: cooperative and no acute distress Orientation/consciousness: patient oriented x3 Resp Effort & Inspection: normal respiratory effort and able to speak in complete sentences Cardio Peripheral pulses: Peripheral pulses 2+ throughout Skin General skin exam: no rashes or lesions noted Neuro General: patient oriented x3 Extrem Other: Right knee: Normal to inspection. No ecchymosis, erythema, or joint effusion. No tenderness to palpation along the medial or lateral joint lines. Full knee extension and flexion. Negative Anna's. Negative anterior drawer. NVI.? ? ? Right lower extremity: Mild to moderated edema compared to the contralateral side, that is unrelated to her right knee. Negative Ramey?s. No pain with calf squeeze. Calf is supple and non-tender. ? Assessment & Plan Assessment & Plan (1) Right patellofemoral syndrome: Code(s): M22.2X1 - Patellofemoral disorders, right knee Category: Medical Plan Ms. Duff is a 33-year-old female who presents in the office today, as a new patient, for an evaluation of right knee pain. The patient was [facility]24 with a complaint of right knee edema and pain for three weeks. X-rays were obtained. She was referred to physical therapy, encouraged to take ibuprofen for pain, and was supplied with a knee brace. ? ? While in the office today, the patient reports ongoing pain for a ?couple? of months. She states her pain is located around the knee and radiates down to her harrison and behind the knee occasionally. She claims to have an increase in pain when lifting her right knee and when going up the stairs. She denies any known injury to the right knee. She confirmed the use of ice and NSAIDs for more than three months with no relief.? ? The patient will be referred for physical therapy. ? ? The patient has mild to moderate edema compared to the contralateral side, that is unrelated to her right knee. Therefore, a copy of the note will be sent to Dr. Gannon. Follow-up will be PRN, or sooner if needed. ? ? X-rays of the right knee which were obtained while in the office today and were reviewed by me, Sosa Colon PA-C, revealed no acute fracture or dislocation. Mild lateralization of the patella. ? ? X-rays of the right knee, obtained on 03/03/24, revealed: ? 1. No acute bony abnormality.? 2. Moderate-sized joint effusion.? Patient Instructions: Scribed by Kellee Stacy senior medical transcriptionist, for Sosa Isaiah CHIN on 04/26/2024 at 12:31 pm, EST.? Coding Level of Care Code New Pt Level 4 (20244) Diagnoses Right patellofemoral syndrome M22.2X1
[2024-04-26 12:35] VITALS: BMI 28.2
== END 2024-04-26 13:20 | disposition home or self-care (01) ==
PROVIDERS: PCP Internal Medicine; Visit Provider Physician Assistant
DX: M22.2X1 Patellofemoral disorders, right knee (principal)
CPT/HCPCS: 99203

== ENCOUNTER 2024-05-03 13:42 | Outpatient (AMB) | payer OTHER, SELFPAY ==
--- NOTE | 2024-05-03 14:15 | MHC.PC.OV ---
Vital Signs 05/03/24 14:16 Height 5 ft 2 in Weight 144 lb BMI 26.3 BP 98/58 L Blood Pressure Location Lt brachial Position Sitting Pulse 73 Pulse Source Pulse Oximeter Pulse Oximetry (%) 98 Oxygen Delivery Method Room Air Intake Visit Reasons: f/u from walkin Rt knee pain Intake Note: Pt is here today to f/u from walkin for Rt knee pain Allergies No Known Allergies Allergy (Verified 05/03/24 15:05) Medication List - Last Reconciled 05/03/24 by Tonia Gannon MD cholecalciferol (vitamin D3) 50 mcg PO DAILY Tobacco use date assessed: 05/03/24 Dental Screening Dental Screen Date: 03/21/24 Did you have a dental visit in the last 12 months?: Yes Did you have a dental problem in the last 6 months where you did not have access to dental care?: No Was dental information given to patient?: Patient has dentist HPI f/u from walkin Rt knee pain HPI Details 34-year-old lady here today for follow-up after recent visit at the walk-in clinic where she was seen for right knee pain. Patient states that she has been taking NSAIDs and doing a lot of stretching, knee pain has improved, but she now has tightness and swelling in right lower leg and behind the right knee. She has been trying NSAIDs, which has not afforded any relief, and has been elevating her legs up at the end of the day. [facility] Medical History Right leg swelling Normocytic normochromic anemia Anxiety and depression Vitamin D deficiency Anemia Anxiety PCOS (polycystic ovarian syndrome) Family History Maternal Grandfather Colon cancer Social History Household Members: Spouse Housing: House Alcohol intake: never Patient Tobacco Use Status: Never used Tobacco e-Cigarette/Vaping Use: Never Used service: No Current occupational status: unemployed Sexual orientation: Straight/Heterosexual Gender identity: Female Cognitive needs: No Hearing needs: No Vision needs: No Female Reproductive History Menstrual Age of Menarche: 13 Questionnaire PHQ-9 Over the last 2 weeks, how often have you been bothered by any of the following problems? 1. Little interest or pleasure in doing things: not at all 2. Feeling down, depressed, or hopeless: not at all 3. Trouble falling or staying asleep, or sleeping too much: several days 4. Feeling tired or having little energy: more than half the days 5. Poor appetite or overeating: more than half the days 6. Feeling bad about yourself - or that you are a failure or have let yourself or your family down: not at all 7. Trouble concentrating on things, such as reading the newspaper or watching television: not at all 8. Moving or speaking so slowly that other people could have noticed. Or the opposite - being so fidgety or restless that you have been moving around a lot more than usual: not at all 9. Thoughts that you would be better off or of hurting yourself in some way: not at all Total score: 5 Depression Screening Interpretation: Negative Depression Screening Done: Yes 86927 - PHQ-9 Billing: Yes Source: Developed by Drs. Matthias Linder, Christiana Barba, Dheeraj Mott and colleagues, with an educational jerman from [employer]. Thrive Questionnaire Date Thrive assessed: 05/03/24 I am a: Patient What is your living situation today?: I have a steady place to live Within the past 12 months, did the food you bought not last and you didn't have the money to get more?: Never true Within the past 12 months, did you worry whether your food would run out before you got money to buy more?: Never true Do you have trouble paying for medicines?: No Do you have trouble getting transportation to medical appointments?: No Do you have trouble paying your heating and electricity bill?: No Do you have trouble taking care of your child, family member or friend?: No Do you have trouble with day-to-day activities such as bathing, preparing meals, shopping, managing finances, etc.?: No Are you currently unemployed and looking for a job?: No Are you interested in more education?: No Please select the resources that you would like help with: Housing/[facility] Currently or been in a relationship where the following occur: No concerns reported THRIVE Score: 0 AUDIT C Alcohol Use Questionnaire (AUDIT-C) 1. How often do you have a drink containing alcohol?: Never Total Score: 0 KYLAH-7 AMB Questionnaire KYLAH-7 Date KYLAH - 7 assessed: 05/03/24 Feeling nervous, anxious, or on edge: 1 = Several days Not being able to stop or control worryin = Not at all Worrying too much about different things: 1 = Several days Trouble relaxin = Several days Being so restless that it is hard to sit still: 0 = Not at all Becoming easily annoyed or irritable: 1 = Several days Feeling afraid as if something awful might happen: 0 = Not at all Total KYLAH-7 score (0-4 normal; 5-9 mild; 10-14 moderate; 15-21 severe): 4 Source: Developed by Drs. Matthias Linder, Christiana Barba, Dheeraj Mott and colleagues, with an educational jerman from [employer]. KYLAH-7 Assessment Billing KYLAH-7 Assessment Tool: KYLAH-7 Assessment 91695 Review of Systems Const Denies body aches, Denies fatigue, Denies fever(s), Denies headache(s) and Denies weakness ENT Denies dizziness, Denies headache(s) and Denies nasal congestion Card Denies chest pain, Denies lightheadedness, Denies palpitations and Denies dyspnea Resp Denies chest congestion, Denies cough, Denies dyspnea and Denies wheezing GI Denies abdominal pain, Denies change in bowel habits and Denies heartburn Denies hematuria, Denies urinary frequency, Denies dysuria and Denies urinary urgency Musc Reports as per HPI, Denies muscle cramps and Denies muscle weakness Skin/Breast Details: Still occasionally Denies breast pain, Denies breast mass, Denies rash and Denies sores Neuro Denies dizziness, Denies headache(s) and Denies weakness Endo Denies fatigue, Denies polydipsia, Denies polyuria and Denies palpitations Raciel/Lymph Denies easy bruising Aller/Immun Denies seasonal rhinorrhea and Denies wheezing Physical exam (Primary Care) Vital Signs: Last Vital Signs Pulse 73 05/03/24 14:16 BP 98/58 L 05/03/24 14:16 Pulse Ox 98 05/03/24 14:16 Oxygen Delivery Method Room Air 05/03/24 14:16 BMI result Body Mass Index 26.3 Tobacco/Smoking Status: Tobacco use Status Tobacco use date assessed 05/03/24 05/03/24 14:19 Patient Tobacco Use Status Never used Tobacco 05/03/24 14:19 e-Cigarette/Vaping Use Never Used 05/03/24 14:19 PHQ-9: PHQ-9 Score PHQ-9: Total score 8 05/03/24 14:19 Depression Screening Interpretation: Negative Thrive Assessment: Date of Thrive Assessment Date Thrive assessed 05/03/24 05/03/24 14:19 Currently or been in a relationship where the following occur: No concerns reported Const General: healthy appearing, comfortable and no acute distress Nutritional Appearance: average body habitus Orientation/consciousness: patient oriented x3 HENMT General nose exam: Normal external nose present Face and sinus: Yes face symmetric Neck Neck: Yes no lymphadenopathy and Yes supple Thyroid: Thyroid normal Resp Effort & Inspection: normal respiratory effort Auscultation: clear to auscultation bilaterally, no crackles, no rales and no rhonchi Cardio Palpation: normal PMI Rate: regular rate Rhythm: regular rhythm Heart sounds: S1 normal heart sound present and S2 normal heart sound present GI Palpation (GI): Soft to palpation, nontender, no guarding and no masses Skin General skin exam: no rashes or lesions noted Neuro General: patient oriented x3, gait normal, tone normal, moves all extremities, Normal light touch and pain sensation and no focal motor deficits Extrem Other: Slight swelling in right lower extremity, no calf tenderness, no varicose veins noted, normal range of motion of knee joints and ankle joints bilateral Assessment and Plan Assessment & Plan (1) Right leg swelling: Code(s): M79.89 - Other specified soft tissue disorders Plan: Ordered stat ultrasound of right lower extremity to rule out DVT, in the meantime advised leg elevations, wear travel socksduring the day if US comes back negative for DVT Orders: Orders US venous duplex LE RT Today M79.89 - Other specified soft tissue disorders Coding Level of Care Code Est Pt Level 4 (28344) Diagnoses Right leg swelling M79.89 Additional Codes KYLAH-7 Assessment Billing - KYLAH-7 Assessment Tool: KYLAH-7 Assessment 90901 ([id number])
[2024-05-03 14:16] VITALS: BP 98/58; PULSE 73; O2SAT 98; BMI 26.3
== END 2024-05-03 15:21 | disposition home or self-care (01) ==
PROVIDERS: PCP Internal Medicine; Visit Provider Internal Medicine
DX: M79.89 Other specified soft tissue disorders (principal)
CPT/HCPCS: 99214

== ENCOUNTER 2024-05-03 15:03 | Outpatient (REF) | payer OTHER, SELFPAY ==
--- NOTE | ~2024-05-03 | US_ITS ---
EXAMINATION: US VENOUS ULTRASOUND WITH DOPPLER LOWER EXTREMITY, RIGHT CLINICAL INFORMATION: Right leg edema COMPARISON: None available. TECHNIQUE: Ultrasound of the deep veins is performed from the hip to the calf with compression sonography and color and pulse Doppler assessment. Spectral analysis with color-flow imaging is performed. FINDINGS: There is normal venous compression and respiratory variation and augmented flow. The visualized common femoral vein, superficial femoral vein, profunda femoral vein, popliteal vein, and the trifurcation region shows no evidence of deep venous thrombosis. There is no significant popliteal fossa cyst. If the patient's symptoms persist, followup ultrasound in 5 days 7 days might be of value to exclude proximal propagation from a non-visualized calf vein. US/US venous duplex LE RT IMPRESSION: No DVT demonstrated in the right lower extremity.
== END 2024-05-03 15:04 | disposition home or self-care (01) ==
LOC: HO.HMGCX 15:03
PROVIDERS: PCP Internal Medicine; Visit Provider Internal Medicine
DX: M79.604 Pain in right leg (principal); R60.0 Localized edema
CPT/HCPCS: 93971

== ENCOUNTER 2024-07-20 12:11 | Outpatient (AMB) | payer OTHER, SELFPAY ==
[2024-07-20 12:16] VITALS: BP 118/68; PULSE 70; O2SAT 98; BMI 26.4
--- NOTE | 2024-07-20 12:16 | A.OFFPC_ITS ---
Vital Signs 07/20/24 12:16 Height 5 ft 2 in Weight 144 lb 4 oz BMI 26.4 BP 118/68 Blood Pressure Location Lt brachial Position Sitting Pulse 70 Pulse Source Pulse Oximeter Pulse Oximetry (%) 98 Oxygen Delivery Method Room Air Intake Visit Reasons: Annual PE ok per Dr. Gannon Intake Note: Pt is here today for her Annual Physical Last pap 2019 Allergies No Known Allergies Allergy (Verified 07/24/24 22:33) Medication List - Last Reconciled 07/24/24 by Tonia Gannon MD cholecalciferol (vitamin D3) 50 mcg PO DAILY hydrocortisone acetate (Anusol-HC) 25 mg [place] DAILY PRN Tobacco use date assessed: 07/20/24 Dental Screening Dental Screen Date: 07/20/24 Did you have a dental visit in the last 12 months?: Yes Did you have a dental problem in the last 6 months where you did not have access to dental care?: No Was dental information given to patient?: Patient has dentist HPI Annual PE ok per Dr. Gannon HPI Details 34-year-old lady, here today for physica l exam. She goes to [facility] where she delivered her 1st child a year ago. Has been diagnosed with per polycystic ovarian syndrome. She has history recurrent constipation and internal hemorrhoids gait which occasionally bleed. She has normocytic normochromic anemia, history of anxiety depression currently not on any medication at present time, and lumbago. [facility] Medical History (Updated 07/20/24 @ 13:07 by Tonia Gannon MD) Constipation Internal hemorrhoids Right leg swelling Normocytic normochromic anemia Anxiety and depression Vitamin D deficiency Anemia Anxiety PCOS (polycystic ovarian syndrome) Family History Maternal Grandfather Colon cancer Social History Household Members: Spouse Housing: House Alcohol intake: never Patient Tobacco Use Status: Never used Tobacco e-Cigarette/Vaping Use: Never Used service: No Current occupational status: unemployed Sexual orientation: Straight/Heterosexual Gender identity: Female Cognitive needs: No Hearing needs: No Vision needs: No Female Reproductive History Menstrual Age of Menarche: 13 Questionnaire Thrive Questionnaire Date Thrive assessed: 07/20/24 I am a: Patient What is your living situation today?: I have a steady place to live Within the past 12 months, did the food you bought not last and you didn't have the money to get more?: Never true Within the past 12 months, did you worry whether your food would run out before you got money to buy more?: Never true Do you have trouble paying for medicines?: No Do you have trouble getting transportation to medical appointments?: No Do you have trouble paying your heating and electricity bill?: No Do you have trouble taking care of your child, family member or friend?: No Do you have trouble with day-to-day activities such as bathing, preparing meals, shopping, managing finances, etc.?: No Are you currently unemployed and looking for a job?: No Are you interested in more education?: No Please select the resources that you would like help with: None Currently or been in a relationship where the following occur: No concerns reported THRIVE Score: 0 AUDIT C Alcohol Use Questionnaire (AUDIT-C) 1. How often do you have a drink containing alcohol?: Never 3. How often do you have six or more drinks on one occasion?: Never Total Score: 0 Score Reviewed/Action Taken: Yes KYLAH-7 AMB Questionnaire KYLAH-7 Date KYLAH - 7 assessed: 05/03/24 Source: Developed by Drs. Matthias Linder, Christiana Barba, Dheeraj Mott and colleagues, with an educational jerman from [employer]. Review of Systems Const Denies fatigue, Denies fever(s), Denies headache(s) and Denies weakness ENT Denies dizziness, Denies headache(s) and Denies nasal congestion Card Denies chest pain, Denies lightheadedness, Denies palpitations and Denies dyspnea Resp Denies chest congestion, Denies cough, Denies dyspnea and Denies wheezing GI Denies abdominal pain and Denies heartburn Denies hematuria, Denies urinary frequency, Denies dysuria and Denies urinary urgency Musc Reports as per HPI, Denies muscle cramps and Denies muscle weakness Skin/Breast Denies breast pain, Denies breast mass, Denies rash and Denies sores Neuro Denies dizziness, Denies headache(s) and Denies weakness Psych Reports no additional complaints Endo Denies fatigue, Denies polydipsia, Denies polyuria and Denies palpitations Raciel/Lymph Denies easy bruising Aller/Immun Denies seasonal rhinorrhea and Denies wheezing Physical exam (Primary Care) Vital Signs: Last Vital Signs Pulse 70 07/20/24 12:16 BP 118/68 07/20/24 12:16 Pulse Ox 98 07/20/24 12:16 Oxygen Delivery Method Room Air 07/20/24 12:16 BMI result Body Mass Index 26.4 Tobacco/Smoking Status: Tobacco use Status Tobacco use date assessed 07/20/24 07/20/24 12:20 Patient Tobacco Use Status Never used Tobacco 07/20/24 12:20 e-Cigarette/Vaping Use Never Used 07/20/24 12:20 Thrive Assessment: Date of Thrive Assessment Date Thrive assessed 07/20/24 07/20/24 12:21 Currently or been in a relationship where the following occur: No concerns reported Const General: comfortable and no acute distress Nutritional Appearance: average body habitus Orientation/consciousness: patient oriented x3 HENMT General nose exam: Normal external nose present Face and sinus: Yes face symmetric Neck Neck: Yes no lymphadenopathy and Yes supple Thyroid: Thyroid normal Resp Effort & Inspection: normal respiratory effort Auscultation: clear to auscultation bilaterally, no crackles, no rales and no rhonchi Cardio Palpation: normal PMI Rate: regular rate Rhythm: regular rhythm Heart sounds: S1 normal heart sound present and S2 normal heart sound present GI Palpation (GI): Soft to palpation, nontender, no guarding and no masses Other: Sees [facility] Back/Spine/Pelvis Thoracic/Lumbar Spine: straight leg raise negative bilaterally and paraspinal muscle tenderness bilaterally (Lower lumbar) Skin General skin exam: no rashes or lesions noted Neuro General: patient oriented x3, gait normal, tone normal, moves all extremities, Normal light touch and pain sensation and no focal motor deficits Extrem Other: Slight swelling in right lower extremity, no calf tenderness, no varicose veins noted, normal range of motion of knee joints and ankle joints bilateral Psych Appearance: grossly normal and well kempt Mental Status: mental status grossly normal Speech and movement: Normal speech and movement present Affect: normal affect Attitude: cooperative Thought process: Normal thought process present Thought content: Normal thought content present Results Reviewed Results Reviewed: Laboratory Tests 02/08/24 10:50 Hgb 11.7 L Hct 36.6 L 25-OH Vitamin D Total 13 L Coding Level of Care Code Est Pt Prev Care 18-39y(97768) Diagnoses Annual visit for general adult medical examination with abnormal findings Z00.01 Vitamin D deficiency E55.9 Normocytic normochromic anemia D64.9 Lumbar pain M54.50 Internal hemorrhoids K64.8 Constipation K59.00 Assessment & Plan Assessment & Plan (1) Annual visit for general adult medical examination with abnormal findings: Code(s): Z00.01 - Encounter for general adult medical examination with abnormal findings Plan: Will check appropriate labs. Recommended dental visit every 6 months and regular eye exams, at least every 2 years. Take adequate calcium in diet and vitamin-D 3 at 2000 IU per cap once a day, in addition to weight-bearing exercises to help maintain good muscle tone and weight control. Instructed to do self-breast exam, and starting at age 40, to get yearly mammogram screenings. Patient declined getting any vaccines (2) Vitamin D deficiency: Code(s): E55.9 - Vitamin D deficiency, unspecified Category: Medical Plan: Patient already completed taking her vitamin D3 supplementation will repeat another vitamin-D level. In the meantime still continue with taking [id number] vitamin D3 at 2000 units daily (3) Normocytic normochromic anemia: Code(s): D64.9 - Anemia, unspecified Category: Medical Plan: Will check another CBC (4) Lumbar pain: Comment: Will order lumbar x-ray. Will refer to physical therapy. Code(s): M54.50 - Low back pain, unspecified Category: Medical Plan: X-ray of lumbar spine done earlier this year showed presence of facet arthritis in the lower lumbar spine with mild spondylosis most notable at the lumbosacral junction . She has been referred for physical therapy but has been noncompliant with her visits. In the meantime will continue with conservative treatment, take Tylenol 650 mg 1 tablet every 8 hours as needed for pain control, may try applying Salonpas patches to affected area in her lower back. Proper posture is very important and again physical therapy is recommended (5) Internal hemorrhoids: Code(s): K64.8 - Other hemorrhoids Category: Medical Plan: Prescription was sent for Anusol HC, insert per rectum once a day for at least 10 days. (6) Constipation: Code(s): K59.00 - Constipation, unspecified Category: Medical Plan: Advised to eat more fiber in her diet, avoid eating a lot of bananas which can bind her, causing more constipation. May try [id number] Colace or docusate sodium 100-200 mg capsules daily often stool Orders: Orders Complete Blood Count Auto Diff 07/20/24 D64.9 - Anemia, unspecified, E55.9 - Vitamin D deficiency, unspecified IRON PROFILE 07/20/24 D64.9 - Anemia, unspecified, E55.9 - Vitamin D deficiency, unspecified Vitamin D 25-OH Total 07/20/24 D64.9 - Anemia, unspecified, E55.9 - Vitamin D deficiency, unspecified Medications: New hydrocortisone acetate (Anusol-HC) 25 mg IA DAILY PRN 12 ea 0RF hemorrhoids
== END 2024-07-20 13:19 | disposition home or self-care (01) ==
PROVIDERS: PCP Internal Medicine; Visit Provider Internal Medicine
DX: Z00.01 Encounter for general adult medical examination with abnormal findings (principal); E55.9 Vitamin D deficiency, unspecified; D64.9 Anemia, unspecified; M54.50 Low back pain, unspecified; K64.8 Other hemorrhoids; K59.00 Constipation, unspecified

== ENCOUNTER 2024-07-20 12:11 | Outpatient (REF) | payer OTHER, SELFPAY ==
[2024-07-20 16:28] LABS: MANUAL DIFF FLAG NO
[2024-07-20 16:31] LABS: Basophils Absolute Auto 0.1 X10*3/uL (0.0-0.2); Basophils Percent Auto 1.1 % (0-2); Eosinophils Absolute Auto 0.2 X10*3/uL (0.0-0.4); Eosinophils Percent Auto 4.5 % (0-4); Hematocrit 37.5 % (37.0-47.0); Hemoglobin 11.9 g/dl (12.0-16.0); Imm Gran Abs Auto 0.01 X10*3/uL (0.00-0.03); Imm Gran Pct Auto 0.2 % (0.0-0.4); Lymphocytes Absolute Auto 2.2 X10*3/uL (1.2-4.9); Lymphocytes Percent Auto 46.8 % (20-40); Mean Corpuscular HGB Conc 31.7 g/dl (31.0-35.0); Mean Corpuscular Hemoglobin 27.8 pg (27.0-33.0); Mean Corpuscular Volume 87.6 fL (80.0-98.0); Mean Platelet Volume 9.5 fL (9.4-12.3); Monocytes Absolute Auto 0.3 X10*3/uL (0.1-1.2); Monocytes Percent Auto 6.4 % (2-11); Neutrophils Absolute Auto 1.9 x10*3/uL (2.0-8.3); Platelet Count 330 X10*3/uL (160-400); Red Blood Count 4.28 X10*6/uL (4.20-5.50); Red Cell Distribution Width 12.7 % (11.0-16.0); White Blood Count 4.7 X10*3/uL (4.8-10.8)
[2024-07-20 16:48] LABS: Iron 92 mcg/dL (30-160); Percent Iron Saturation 30 % (15-50); Total Iron Binding Capacity 309 mcg/dL (228-428); Unsaturated Iron Binding 217 ug/dL
[2024-07-20 17:03] LABS: Vitamin D 25-OH Total 44.4 ng/mL (>30)
== END 2024-07-20 12:12 | disposition home or self-care (01) ==
LOC: HO.HMGCLDS 12:11
PROVIDERS: PCP Internal Medicine; Visit Provider Internal Medicine
DX: Z00.01 Encounter for general adult medical examination with abnormal findings (principal); E55.9 Vitamin D deficiency, unspecified; D64.9 Anemia, unspecified; M54.50 Low back pain, unspecified; K64.8 Other hemorrhoids; K59.00 Constipation, unspecified
CPT/HCPCS: 36415; 82306; 83540; 85025; 99395

== ENCOUNTER 2024-08-23 13:45 | Outpatient (AMB) | payer OTHER, SELFPAY ==
--- NOTE | 2024-08-23 13:49 | MHC.OFFVIS ---
Vital Signs 08/23/24 13:51 Height 5 ft 2 in Weight 144 lb BMI 26.3 Intake Visit Reasons: New Prob- Left knee pain Intake Note: Sandra a 34 year old female who presents today for an evaluation of left knee pain. Patient reports her pain has been present for over a month. Denies injury. She has constant mild pain that increases with activities that bends her knee such as stair use. Her pain is located at the anterior aspect of knee and radiates up to her thigh. Limited ROM. No previous tx. States difficulty with picking up her baby. Finds relief with Tylenol as needed. Allergies No Known Allergies Allergy (Verified 08/23/24 13:51) Medication List - Last Reconciled 08/23/24 by Fatou Casiano PA-C cholecalciferol (vitamin D3) 50 mcg PO DAILY hydrocortisone acetate (Anusol-HC) 25 mg [place] DAILY PRN HPI HPI New Prob- Left knee pain: Details: 34-year-old female who presents to the office today for an evaluation of left knee pain for over a month. She has not had any injury in the past. She currently states she has limited ROM and constant mild pain at the anterior aspect of her knee that radiates up to her thigh. Her pain is aggravated with bending and stair use. She also experiences difficulty with picking up her baby. She denies any prior treatment on her knee. She takes Tylenol for her pain PRN with benefits. [facility] Medical History (Updated 08/23/24 @ 13:58 by Fatou Casiano PA-C) Constipation Internal hemorrhoids Right leg swelling Normocytic normochromic anemia Anxiety and depression Vitamin D deficiency Anemia Anxiety PCOS (polycystic ovarian syndrome) Family History Maternal Grandfather Colon cancer Social History Household Members: Spouse Housing: House Alcohol intake: never Patient Tobacco Use Status: Never used Tobacco e-Cigarette/Vaping Use: Never Used service: No Current occupational status: unemployed Sexual orientation: Straight/Heterosexual Gender identity: Female Cognitive needs: No Hearing needs: No Vision needs: No Female Reproductive History Menstrual Age of Menarche: 13 Review of Systems Const All systems reviewed & are unremarkable except as noted in HPI and below Physical Exam Vital Signs: BMI result Body Mass Index 26.3 Extrem Other: Left knee: Skin intact, no erythema or joint effusion. Tenderness along the medial and lateral joint line. Full ROM with crepitus. Negative Anna?s. No ligamentous laxity. NVI. Results Reviewed Results Reviewed: XR knee LT 2V 04/26/34 IMPRESSION: Normal radiographs of the knees. Assessment & Plan Assessment & Plan (1) Patellofemoral disorders, left knee: Code(s): M22.2X2 - Patellofemoral disorders, left knee Category: Medical Plan We discussed options which include PT, NSAIDs and injections. The patient will defer on the injection today and proceed with PT and NSAIDs. If symptoms persist, she will contact me for an injection, otherwise, PRN. She was also fit for a Genumed knee brace in the office today. Orders: Orders PT Evaluation and Treatment Today M22.2X2 - Patellofemoral disorders, left knee Patient Instructions: Scribed for Fatou Casiano PA-C, by Jesse Mcdonough nuclear medical technologist, on 08/23/2024 at 1:45 PM EST.? I, Fatou Casiano PA-C, have personally reviewed and agree with the information entered by the scribe. Coding Level of Care Code New Pt Level 3 (55583) Complex EM visit Add On G2211 Diagnoses Patellofemoral disorders, left knee M22.2X2
[2024-08-23 13:51] VITALS: BMI 26.3
== END 2024-08-23 14:54 | disposition home or self-care (01) ==
PROVIDERS: PCP Internal Medicine; Visit Provider Physician Assistant
DX: M22.2X2 Patellofemoral disorders, left knee (principal)
CPT/HCPCS: 99203; G2211

== ENCOUNTER → 2024-08-23 13:45 | Outpatient (BNVA) | payer OTHER, SELFPAY | PROVIDERS: PCP Internal Medicine; Visit Provider Physician Assistant | DX: M22.2X2 Patellofemoral disorders, left knee (principal); M25.562 Pain in left knee | CPT/HCPCS: 99202 ==

== ENCOUNTER 2024-09-19 12:46 | Outpatient (AMB) | payer OTHER, SELFPAY ==
[2024-09-19 12:54] VITALS: BP 90/62; PULSE 64; O2SAT 100; BMI 25.8
--- NOTE | 2024-09-19 12:54 | MHC.PC.OV ---
Vital Signs 09/19/24 12:54 Height 5 ft 2 in Weight 141 lb BMI 25.8 BP 90/62 Blood Pressure Location Rt brachial Position Sitting Pulse 64 Pulse Source Pulse Oximeter Pulse Oximetry (%) 100 Oxygen Delivery Method Room Air Intake Visit Reasons: follow up Intake Note: Pt is here today continues from the abdominal pain: with bright red stool Allergies No Known Allergies Allergy (Verified 09/19/24 13:29) Medication List - Last Reconciled 09/19/24 by Tonia Gannon MD cholecalciferol (vitamin D3) 50 mcg PO DAILY Tobacco use date assessed: 09/19/24 Dental Screening Dental Screen Date: 07/20/24 HPI HPI Comments History of Present Illness Details - The patient is a 34-year-old female here today complaining of intermittent bleeding during bowel movements . This started post-childbirth and occurs intermittently; blood is bright red, with no accompanying rectal pain reported. - Patient has a history of internal hemorrhoids post-childbirth in 2022; confirmed by colonoscopy - Reports intermittent abdominal pain, not associated with eating or bowel movements, located around the belly button and lower back. - Patient has been anemic, with hemoglobin levels of 11.9 and 11.7 in late 2021, still experiencing anemia with levels below normal in June 2023. - Iron levels have consistently been within normal limits. - No current constipation or diarrhea; stool is well-formed per patient. [facility] Medical History (Updated 09/22/24 @ 23:50 by Tonia Gannon MD) Epigastric pain Bleeding internal hemorrhoids Lower abdominal pain of unknown etiology Constipation Internal hemorrhoids Right leg swelling Normocytic normochromic anemia Anxiety and depression Vitamin D deficiency Anemia Anxiety PCOS (polycystic ovarian syndrome) Surgical History (Updated 09/22/24 @ 23:51 by Tonia Gannon MD) No pertinent past surgical history Family History Maternal Grandfather Colon cancer Social History Household Members: Spouse Housing: House Alcohol intake: never Patient Tobacco Use Status: Never used Tobacco e-Cigarette/Vaping Use: Never Used service: No Current occupational status: unemployed Sexual orientation: Straight/Heterosexual Gender identity: Female Cognitive needs: No Hearing needs: No Vision needs: No Female Reproductive History Menstrual Age of Menarche: 13 Questionnaire Thrive Questionnaire Date Thrive assessed: 05/03/24 I am a: Patient What is your living situation today?: I have a steady place to live Within the past 12 months, did the food you bought not last and you didn't have the money to get more?: Never true Within the past 12 months, did you worry whether your food would run out before you got money to buy more?: Never true Do you have trouble paying for medicines?: No Do you have trouble getting transportation to medical appointments?: No Do you have trouble paying your heating and electricity bill?: No Do you have trouble taking care of your child, family member or friend?: No Do you have trouble with day-to-day activities such as bathing, preparing meals, shopping, managing finances, etc.?: No Are you currently unemployed and looking for a job?: No Are you interested in more education?: No Please select the resources that you would like help with: None Currently or been in a relationship where the following occur: No concerns reported THRIVE Score: 0 KYLAH-7 AMB Questionnaire KYLAH-7 Date KYLAH - 7 assessed: 05/03/24 Source: Developed by Drs. Matthias Linder, Christiana Barba, Dheeraj Mott and colleagues, with an educational jerman from [employer]. Review of Systems Const Denies fatigue, Denies fever(s), Denies headache(s) and Denies weakness ENT Denies dizziness, Denies headache(s) and Denies nasal congestion Card Denies chest pain, Denies lightheadedness, Denies palpitations and Denies dyspnea Resp Denies chest congestion, Denies cough, Denies dyspnea and Denies wheezing GI Denies heartburn Denies hematuria, Denies urinary frequency, Denies dysuria and Denies urinary urgency Musc Reports as per HPI, Denies muscle cramps and Denies muscle weakness Neuro Denies dizziness, Denies headache(s) and Denies weakness Psych Reports no additional complaints Endo Denies fatigue, Denies polydipsia, Denies polyuria and Denies palpitations Raciel/Lymph Denies easy bruising Aller/Immun Denies seasonal rhinorrhea and Denies wheezing Physical exam (Primary Care) Vital Signs: Last Vital Signs Pulse 64 09/19/24 12:54 BP 90/62 09/19/24 12:54 Pulse Ox 100 09/19/24 12:54 Oxygen Delivery Method Room Air 09/19/24 12:54 BMI result Body Mass Index 25.8 Tobacco/Smoking Status: Tobacco use Status Tobacco use date assessed 09/19/24 09/19/24 13:03 Patient Tobacco Use Status Never used Tobacco 09/19/24 12:54 e-Cigarette/Vaping Use Never Used 09/19/24 12:54 Thrive Assessment: Date of Thrive Assessment Date Thrive assessed 05/03/24 09/19/24 12:54 Currently or been in a relationship where the following occur: No concerns reported Const General: no acute distress Nutritional Appearance: average body habitus Orientation/consciousness: patient oriented x3 HENWY General nose exam: Normal external nose present Face and sinus: Yes face symmetric Neck Neck: Yes no lymphadenopathy and Yes supple Thyroid: Thyroid normal Resp Effort & Inspection: normal respiratory effort Auscultation: clear to auscultation bilaterally Cardio Palpation: normal PMI Rate: regular rate Rhythm: regular rhythm Heart sounds: S1 normal heart sound present and S2 normal heart sound present GI Palpation (GI): Soft to palpation, Tenderness to palpation present (GI) (Lower abdomen) with no rebound tenderness and Rovsing's sign negative, no guarding and no masses Other: Sees [facility] OBGYN General: No CVA tenderness Back/Spine/Pelvis Back: No CVA tenderness and No back tenderness Skin General skin exam: no rashes or lesions noted Neuro General: patient oriented x3, gait normal, tone normal, moves all extremities, Normal light touch and pain sensation and no focal motor deficits Results Reviewed Results Reviewed: Laboratory Tests 11/11/21 12/02/21 02/08/24 08:48 08:34 10:50 WBC 5.9 Hgb 12.2 11.8 L 11.7 L Hct 37.3 35.8 L 36.6 L RDW Plt Count 07/20/24 13:19 WBC 4.7 L Hgb 11.9 L Hct 37.5 RDW 12.7 Plt Count 330 Coding Level of Care Code Est Pt Level 4 (01723) Diagnoses Lower abdominal pain of unknown etiology R10.30 Bleeding internal hemorrhoids K64.8 Epigastric pain R10.13 Assessment & Plan Assessment & Plan (1) Lower abdominal pain of unknown etiology: Code(s): R10.30 - Lower abdominal pain, unspecified Category: Medical (2) Bleeding internal hemorrhoids: Code(s): K64.8 - Other hemorrhoids Category: Medical (3) Epigastric pain: Code(s): R10.13 - Epigastric pain Category: Medical Plan - prescription sent for hydrocortisone suppositories , to use as directed, try initially using it at night - Avoid intermittent fasting and reduce intake of spicy foods that may worsen symptoms. - CT of abdomen and pelvis with IV contrast ordered for further evaluation - referral to colorectal surgeon and physiotherapy practice manager for further evaluation - empirically started on pantoprazole 40 mg per capsule to take once a day in a.m. an hour before eating - Monitor hemoglobin levels at follow-up appointments to track anemia status. - Return to care if there is a significant increase in pain or if bleeding becomes more severe. Orders: Orders CT abdomen pelvis wo IV con 09/19/24 R10.30 - Lower abdominal pain, unspecified Referrals General Surgery Referral K64.8 - Other hemorrhoids Gastroenterology Referral R10.13 - Epigastric pain, Z86.19 - Personal history of other infectious and parasitic diseases Medications: New pantoprazole take a capsule in am 1 hour before breakfast or medication 40 mg PO DAILY 30 tabs 0RF Refilled hydrocortisone acetate (Anusol-HC) [address] DAILY PRN 12 ea 0RF hemorrhoids
== END 2024-09-19 13:42 | disposition home or self-care (01) ==
PROVIDERS: PCP Internal Medicine; Visit Provider Internal Medicine
DX: R10.30 Lower abdominal pain, unspecified (principal); K64.8 Other hemorrhoids; R10.13 Epigastric pain

== ENCOUNTER → 2024-09-19 12:46 | Outpatient (BNVA) | payer OTHER, SELFPAY | PROVIDERS: PCP Internal Medicine; Visit Provider Internal Medicine | DX: R10.30 Lower abdominal pain, unspecified (principal); R10.13 Epigastric pain; K64.8 Other hemorrhoids; Z86.19 Personal history of other infectious and parasitic diseases | CPT/HCPCS: 99212 ==

== ENCOUNTER 2024-09-27 13:01 | Outpatient (REF) | payer OTHER, SELFPAY ==
--- NOTE | ~2024-09-27 | CT_ITS ---
CLINICAL HISTORY: R10.30 - Lower abdominal pain, unspecified CT abdomen and pelvis without contrast Comparison: None Findings: Limited examination without contrast. The lung bases are clear. The gallbladder and solid organs are within normal limits. No renal stones. No bowel obstruction, pneumoperitoneum, or pneumatosis. Pelvic contents unremarkable. Normal appendix. No acute fracture. IMPRESSION: No acute findings. This document has been electronically signed by: Álvaro Brown MD on 09/27/2024 14:50:40
== END 2024-09-27 13:02 | disposition home or self-care (01) ==
LOC: HO.CT 13:01
PROVIDERS: PCP Internal Medicine; Visit Provider Internal Medicine
DX: R10.30 Lower abdominal pain, unspecified (principal)
CPT/HCPCS: 74176

== ENCOUNTER → 2024-09-27 13:02 | Outpatient (BNV) | payer OTHER, SELFPAY | PROVIDERS: PCP Internal Medicine; Visit Provider Nuclear Medicine | DX: R10.30 Lower abdominal pain, unspecified (principal) | CPT/HCPCS: 74176 ==

== ENCOUNTER 2024-09-29 15:18 | Outpatient (AMB) | payer OTHER, SELFPAY ==
--- NOTE | 2024-09-29 15:18 | MHC.OFFVIS ---
Vital Signs 09/29/24 15:19 Height 5 ft 2 in Weight 141 lb 0.017 oz BMI 25.8 Intake Visit Reasons: Hemorrhoids Intake Note: This patient presents for hemorrhoids. Pt c/o;reports occasional rectal bleeding, reports occasional constipation, reports straining with bowel movements, reports this has been an issue for several years but she notice it is more constant since she had her baby last year. Gyroscopic Instrument Tester Required: No Furnace Operator: Furnace Operator Present (Guicho) Accompanied by: Self / Same As Patient Allergies No Known Allergies Allergy (Verified 09/29/24 15:22) Medication List - Last Reconciled 09/29/24 by Georgi Rockwell MD cholecalciferol (vitamin D3) 50 mcg PO DAILY hydrocortisone acetate (Anusol-HC) 25 mg [place] DAILY PRN nitroglycerin 0.4%(w/w) (Rectiv) 1 inch NJ BID pantoprazole 40 mg PO DAILY HPI HPI Hemorrhoids: Details: [age] year old female referred for anal pain and bleeding. She says that she has had periodic passage of bright blood per rectum for many years. However, for the past year after she had delivered her baby, she had been noticing this along with some more frequent pain with passage of stools. She says that the pain feels like a sharp pain in her anus that lingers after bowel movements She occasionally sees small amounts of blood. She does state that she had been occasionally constipated. She says that she had a colonoscopy last year and she was told she had internal hemorrhoids. [facility] Medical History (Updated 09/29/24 @ 15:39 by Georgi Rockwell MD) Anal pain Epigastric pain Bleeding internal hemorrhoids Lower abdominal pain of unknown etiology Constipation Internal hemorrhoids Right leg swelling Normocytic normochromic anemia Anxiety and depression Vitamin D deficiency Anemia Anxiety PCOS (polycystic ovarian syndrome) Surgical History No pertinent past surgical history Family History Maternal Grandfather Colon cancer Social History Household Members: Spouse Housing: House Alcohol intake: never Patient Tobacco Use Status: Never used Tobacco e-Cigarette/Vaping Use: Never Used service: No Current occupational status: unemployed Sexual orientation: Straight/Heterosexual Gender identity: Female Cognitive needs: No Hearing needs: No Vision needs: No Female Reproductive History Menstrual Age of Menarche: 13 Review of Systems Const Denies chills and Denies fever(s) Card Denies chest pain, Denies dyspnea and Denies dyspnea on exertion Resp Denies cough, Denies dyspnea and Denies dyspnea on exertion GI Denies hematochezia and Denies change in bowel habits Denies hematuria Musc Denies back pain and Denies limited range of motion Neuro Denies focal weakness and Denies convulsions Psych Denies depression and Denies mood swings Physical Exam Vital Signs: BMI result Body Mass Index 25.8 Const General: comfortable and no acute distress Orientation/consciousness: patient oriented x3 Neck Neck: Yes no lymphadenopathy Resp Auscultation: clear to auscultation bilaterally Cardio Rhythm: regular rhythm GI Other: Rectal exam does not reveal large hemorrhoids; digital exam he was some hypertonicity of the sphincters with tenderness. I am unable to a good anoscopic exam because of her tenderness and pain Palpation (GI): Soft to palpation, nontender and no guarding Neuro General: patient oriented x3 Assessment & Plan Assessment & Plan (1) Anal pain: Code(s): K62.89 - Other specified diseases of anus and rectum Category: Medical Plan: Overall clinical picture is more suggestive of an anal fissure rather than hemorrhoids. Physical exam does not reveal large hemorrhoids. She does have some hypertonicity of her sphincters consistent with an anal fissure. I am going to try her on Rectiv to relax sphincter muscles. I will see her again in the office in about a month to see how she is doing with this. Medications: New nitroglycerin 0.4%(w/w) (Rectiv) 1 inch NJ BID 30 grams 0RF anal pain Coding Level of Care Code New Pt Level 3 (44196) Diagnoses Anal pain K62.89
[2024-09-29 15:19] VITALS: BMI 25.8
== END 2024-09-29 15:48 | disposition home or self-care (01) ==
PROVIDERS: PCP Internal Medicine; Visit Provider Surgery
DX: K62.89 Other specified diseases of anus and rectum (principal)
CPT/HCPCS: 99203

== ENCOUNTER → 2024-09-29 15:18 | Outpatient (BNVA) | payer OTHER, SELFPAY | PROVIDERS: PCP Internal Medicine; Visit Provider Surgery | DX: K62.89 Other specified diseases of anus and rectum (principal) | CPT/HCPCS: 99202 ==

== ENCOUNTER 2025-04-28 10:06 | Outpatient (REF) | payer OTHER, SELFPAY ==
--- OUTSIDE RECORDS SUMMARY | 2025-04-28 10:15 | XMS_ITS | Clinical Summary ---
Author Organization [employer] Address [address] [place] [address] Care Team Providers Care Nerve Specialist Name Role Phone Angela Rizvi CECE Primary Care Provider Allergies No known active allergies Medications famotidine (Pepcid) 20 MG tablet TAKE 1 TABLET BY MOUTH EVERY DAY NEEDED FOR ABDOMINAL DISCOMFORT 2 Active FeroSul 325 (65 Fe) MG tablet TAKE 1 TABLET BY MOUTH EVERY OTHER DAY WITH A LARGE GLASS OF WATER OR ORANGE JUICE 2 Active hydrOXYzine HCl (Atarax) 25 MG tablet Take 25 mg by mouth if needed in the morning, at noon, and at bedtime. 2 Active Vit-Fe Nov-MU-Sdvid (One-A-Day Womens ) 28-0.8 & 223 MG misc take one per day by mouth 2 Active 27-1 MG tablet Take 1 tablet by mouth in the morning. 2 Active D3 Super Strength 50 MCG (2000 UT) capsule TAKE 1 CAPSULE BY MOUTH EVERY DAY 90 capsule 1 3 Active Active Problems Problem Noted Date Diagnosed Date Cervical sprain, initial encounter 12/18/2022 Assessment & Plan (12/18/2022 2:00 PM EDT): Take Tylenol 500mg BID x 1 week and then PRN Use heat to affected area. I gave her information to do stretching exercises of the C-spine FU with PCP if symptoms do not improve within 3-4 weeks. Synovial cyst of right wrist 12/18/2022 Assessment & Plan (12/18/2022 2:00 PM EDT): Reassurance. Pt to reconsult PRN. Anxiety about health 10/02/2022 Polycystic ovary syndrome 12/09/2021 Social History Tobacco Use Types Packs/Day Years Used Date Smoking Tobacco: Never Passive Smoke Exposure: Never Smokeless Tobacco: Never Tobacco Cessation:Counseling Given: Not Answered Alcohol Use Standard Drinks/Week Comments Never 0 (1 standard drink = 0.6 oz pur e alcohol) Housing Stability Answer Date Recorded What is your housing situation today? I have sara ahnsen 07/28/[address] you li ve. Do you have problems with any of the following? None of the above 07/28/2023 Food Insecurity Answer Date Recorded Within the past 12 months, y ou worried that your food would run out before you got money to buy more: Never True 07/28/2023 Within the past 12 months,th e food you bought just didn't last and you didn't have enough money to get more: Never True Transportation Answer Date Recorded In the past 12 months, has l ack of transportation kept you from medical appts, meetings, work or from getting things needed for daily living? No 07/28/2023 Utilities Answer Date Recorded In the past 12 months, has t he electric, gas, oil or water company threatened to shut off services in your home? No 07/28/2023 Comments Unknown Sex and Gender Information Value Date Recorded Sex Assigned at Female 07/28/2022 10:40 AM EDT Legal Sex Female 10:40 AM EDT Gender Identity Female 07/28/2022 10:40 AM EDT Sexual Orientation Choose not to disclose 2021 10:40 AM EDT Last Filed Vital Signs Vital Sign Reading Time Taken Comments Blood Pressure 106/61 12/18/2022 12:37 PM EDT Pulse 100 12/18/2022 12:37 PM EDT Temperature 36.4 C (97.5 F) 12/18/2022 12:37 PM EDT Respiratory Rate 20 12/18/2022 12:37 PM EDT Oxygen Saturation 99% 12/18/2022 12:37 PM EDT Inhaled Oxygen Concentration - - Weight 59.5 kg (131 lb 2 oz) 12/18/2022 12:37 PM EDT Height 154.9 cm (5' 1 ) 09/16/2022 12:52 PM EST Body Mass Index 24.78 09/16/2022 12:52 PM EST Plan of Treatment Health Maintenance Due Date Last Done Comments Depression Screening 1992 Disability Screening 1992 Alcohol/Substance Use Screening 2004 Family Planning (PISQ) 2007 HPV Vaccines (1 - 3-dose series) 2007 DTaP/Tdap/Td Vaccines (1 - Tdap) 2011 Hepatitis B Vaccines (1 of 3 - 19+ 3-dose series) 2011 Pap Smear 2013 Cervical Cancer Screening 2022 HPV/Cotest 2022 Tobacco Screening 12/19/2023 12/18/2022 SDOH Screening 05/12/2024 05/12/2023 COVID-19 Vaccine (1 - 2023-2 5 season) 2024 Influenza Vaccine (#1) 2025 Zoster Vaccines (1 of 2) 2042 RSV Patients and Pa tients Aged 60 years or older (1 - 1-dose 75+ series) 2067 HIV Screening Completed 12/09/2021 Hepatitis C Screening Completed 12/09/2021 HIB Vaccines Aged Out No longer eligi ble based on patient's age to complete this topic Hepatitis A Vaccines Aged Out No long er eligible based on patient's age to complete this topic IPV Vaccines Aged Out No longer eligi ble based on patient's age to complete this topic Meningococcal B Vaccine Aged Out No l onger eligible based on patient's age to complete this topic Meningococcal Vaccine Aged Out No renetta gil eligible based on patient's age to complete this topic Pneumococcal Vaccine: Pediat rics (0 to 5 Years) and At-Risk Patients (6 to 49) Years Aged Out No longer eligi ble based on patient's age to complete this topic RSV under 20 months Aged Out No longe r eligible based on patient's age to complete this topic Rotavirus Vaccines Aged Out No longer eligible based on patient's age to complete this topic Procedures Procedure Name Priority Date/Time Associated Diagnosis Comments ZZZ HISTORICAL HEPATITIS C AB W/REFL TO HCV RNA, QN, PCR Routine 12/09/2021 10:38 AM EDT HIV 1/2 ANTIGEN/ANTIBODY, FOURTH GENERATION W/RFL Routine 12/09/2021 10:38 AM EDT from Last 3 Months or Most Recently Relevant to Health Maintenance Results * HEPATITIS C AB W/REFL TO HCV RNA, QN, PCR (12/09/2021 10:38 AM EDT) HEPATITIS C ANTIBODY NON-REACT RICHAR NON-REACT RICHAR [facility] INDEX 0.01 <1.00 [facility] Comment: HCV antibody was non-reactive. There is no laboratory evidence of HCV infection. In most cases, no further action is required. However, if recent HCV exposure is suspected, a test for HCV RNA (test code 51996) is suggested. For additional information please refer to http://Nextcar.com.Samfind/faq/DGB87z4 (This link is being provided for informational/ educational purposes only.) 12/09/2021 10:3 8 AM EDT [facility]NON ORDERABLE [facility]S Final Result [facility] [address] * HIV 1/2 ANTIGEN/ANTIBODY,FOURTH GENERATION W/RFL (12/09/2021 10:38 AM EDT) HIV-1/2 ANTIGEN AND ANTIBODIES, 4TH GENERATION W/ REFLEX NON-REACT RICHAR NON-REACT RICHAR [facility] Comment: HIV-1 antigen and HIV-1/HIV-2 antibodies were not detected. There is no laboratory evidence of HIV infection. PLEASE NOTE: This information has been disclosed to you from records whose confidentiality may be protected by state law. If your state requires such protection, then the state law prohibits you from making any further disclosure of the information without the specific written consent of the person to whom it pertains, or as otherwise permitted by law. A general authorization for the release of medical or other information is NOT sufficient for this purpose. For additional information please refer to http://Nextcar.com.Samfind/faq/TPO499 (This link is being provided for informational/ educational purposes only.) The performance of this assay has not been clinically validated in patients less than 2 years old. 12/09/2021 10:3 8 AM EDT [facility] BLOOD ORDERABLES Final Res ult [facility] [address] from Last 3 Months or Most Recently Relevant to Health Maintenance Insurance [facility]AND[facility] Care Teams Nerve Specialist Relationship Specialty Start Date End Date Angela Rizvi NP [address] [place] [id number] PCP - General Family Medicine 03/22/24
--- OUTSIDE RECORDS SUMMARY | 2025-04-28 10:15 | XMS_ITS | Clinical Summary ---
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 3 Active nitroglycerin (RECTIV) 0.4 % (w/w) rectal ointment 5 Active polyethylene glycol (MIRALAX) 17 gram packetIndications :Generalized abdominal pain,Constipation , unspecified constipation type Take 17 g by mouth 1 (one) time each day. 510 g 11 5 03/01/20 26 Active psyllium (Metamucil, with sugar,) 3.4 gram packetIndications :Generalized abdominal pain,Constipation , unspecified constipation type Take 1 packet by mouth 1 (one) time each day. Mix and drink with at least 8 ounces of water or juice. 30 packet 11 5 03/01/20 26 Active Active Problems Problem Noted Date Diagnosed Date Urge urinary incontinence 02/21/2025 Migraines 02/21/2025 GERD (gastroesophageal reflux disease) 5 Chest pain 02/21/2025 Epigastric pain 01/03/2025 Bleeding internal hemorrhoids 01/03/2025 Constipation 01/03/2025 Assessment & Plan (03/01/2025 5:14 PM EDT): See above Orders: polyethylene glycol (MIRALAX) 17 gram packet; Take 17 g by mouth 1 (one) time each day. psyllium (Metamucil, with sugar,) 3.4 gram packet; Take 1 packet by mouth 1 (one) time each day. Mix and drink with at least 8 ounces of water or juice. Normocytic normochromic anemia 01/03/2025 Vitamin D deficiency 01/03/2025 Cervical sprain, initial encounter 12/18/2022 Synovial cyst of right wrist 12/18/2022 Anxiety about health 10/02/2022 Polycystic ovary syndrome 12/09/2021 Encounters Date Type Department Care Team Description 03/01/2025 1:00 PM EDT Office Visit Gastroenterology - [address] [place] [phone] Zoey Nelson PA Generalized abdominal pain (Primary Dx); Constipation, unspecified constipation type from Last 3 Months Family History Medical History Relation Name Comments Colon cancer Maternal Grandfather Relation Name Status Comments Maternal Grandfather Social History Tobacco Use Types Packs/Day Years Used Date Smoking Tobacco: Never Smokeless Tobacco: Never Tobacco Cessation:Counseling Given: Not Answered Alcohol Use Standard Drinks/Week Comments Never 0 (1 standard drink = 0.6 oz pur e alcohol) Comments Unknown Sex and Gender Information Value Date Recorded Sex Assigned at Female 01/04/2025 2:10 PM EDT Legal Sex Female 1:19 PM EST Gender Identity Female 01/04/2025 2:10 PM EDT Sexual Orientation Not on file Obstetrics History Last Filed Vital Signs Vital Sign Reading Time Taken Comments Blood Pressure - - Pulse - - Temperature - - Respiratory Rate - - Oxygen Saturation - - Inhaled Oxygen Concentration - - Weight 61.2 kg (135 lb) 03/01/2025 12:54 PM EDT Height 154.9 cm (5' 1 ) 03/01/2025 12:54 PM EDT Body Mass Index 25.51 03/01/2025 12:54 PM EDT Plan of Treatment Health Maintenance Due Date Last Done Comments DTaP,Tdap,and Td Vaccines (1 - Tdap) 2011 Hepatitis B Vaccines (1 of 3 - 19+ 3-dose series) 2011 Cervical Cancer Screening: P ap Smear 2013 COVID-19 Vaccine (1 - 2023-2 5 season) 2024 Depression Screening 09/28/2024 Hepatitis C Screening 10/10/2024 Social Influencers of Health Screening 10/10/2024 Influenza Vaccine (#1) 2025 HIV Screening Completed 12/09/2021 HIB Vaccines Aged Out No longer eligi ble based on patient's age to complete this topic HPV Vaccines Aged Out No longer eligi ble based on patient's age to complete this topic Hepatitis A Vaccines Aged Out No long er eligible based on patient's age to complete this topic IPV Vaccines Aged Out No longer eligi ble based on patient's age to complete this topic MMR Vaccines Aged Out No longer eligi ble based on patient's age to complete this topic Meningococcal ACWY Vaccine Aged Out N o longer eligible based on patient's age to complete this topic Meningococcal B Vaccine Aged Out No l onger eligible based on patient's age to complete this topic Pneumococcal Vaccine: Pediat rics (0 to 5 Years) and At-Risk Patients (6 to 49 Years) Aged Out No longer eligi ble based on patient's age to complete this topic RSV Immunization Patients Un angelica 20 months Aged Out No longer eligible b ased on patient's age to complete this topic Varicella Vaccines Aged Out No longer eligible based on patient's age to complete this topic Insurance MEDICAID - [place] [facility] [employer] PL[employer] Care Teams Cantilever Crane Operator Relationship Specialty Start Date End Date Tonia Gannon MD [address] [place] [address] PCP - General Internal Medicine 10/10/24
--- OUTSIDE RECORDS SUMMARY | 2025-04-28 10:16 | XMS_ITS | Clinical Summary ---
Author Organization [facility] Address [address] [address] Phone Care Team Providers Care Assistant Designer Name Role Phone Pcp, Unknown Primary Care Provider Unavailabl e Allergies No known active allergies Medications No known medications Social History Tobacco Use Types Packs/Day Years Used Date Smoking Tobacco: Never Assessed Education Answer Date Recorded Are you interested in more education? Not on ezekiel e 09/04/2023 Are you concerned about learning? Not on file 09/04/2023 No 09/04/2023 No 09/04/2023 Digital Access Answer Date Recorded No 09/04/2023 No 09/04/2023 Reliable internet access at home? Not on file 09/04/2023 Device with a working camera? Not on file Comments Unknown Sex and Gender Information Value Date Recorded Sex Assigned at Not on file Legal Sex Female 11:11 AM EST Gender Identity Not on file Sexual Orientation Not on file Plan of Treatment Health Maintenance Due Date Last Done Comments Adult Td,Tdap Booster 1992 DEPRESSION SCREENING 2004 SMOKING Hx and SMOKELESS TOB ACCO SCREENING 2005 HEPATITIS C SCREENING 2010 HIV ONE-TIME SCREENING (18-6 5 YEARS) 2010 PAP SMEAR 2013 COVID-19 VACCINE ( - 2023-2 5 season) 2024 HEPATITIS A VACCINES Aged Out No long er eligible based on patient's age to complete this topic HIB VACCINES Aged Out No longer eligi ble based on patient's age to complete this topic MENINGOCOCCAL VACCINES (ACWY) Aged Out No longer eligible based on patient's age to complete this topic MENINGOCOCCAL VACCINES (B) Aged Out N o longer eligible based on patient's age to complete this topic PNEUMOCOCCAL VACCINES (0-49 years) Aged Out No longer eligible based on patient's age to complete this topic Medical Devices Not on file [place] [address] [place] [id number] ACO Care Teams Assistant Designer Relationship Specialty Start Date End Date Pcp, Unknown PCP - General 09/04/23 Additional Source Comments The information contained in this document represents components of the legal health record. It is not the complete legal health record.[facility]
[2025-05-02 01:49] LABS: Rubeola IgG (Measles) 120.00 AU/mL
== END 2025-04-28 10:07 | disposition home or self-care (01) ==
LOC: HO.HMGCLDS 10:06
PROVIDERS: PCP Internal Medicine; Visit Provider Internal Medicine
DX: Z01.84 Encounter for antibody response examination (principal); Z11.59 Encounter for screening for other viral diseases
CPT/HCPCS: 36415; 86735; 86762; 86765